=== PATIENT | male | born 1945 | race Caucasian/White ===

== ENCOUNTER → 2016-09-14 | Outpatient (CLI) | payer MEDICARE, BC ==
--- NOTE | 2016-09-15 08:12 | XR ---
Cervical spine with flexion and extension views HISTORY: Chronic stiffness in neck, back pain 8 views of the cervical spine correlated to the thoracic spine of same date Multilevel facet arthropathy changes present. There is carotid artery calcification present. At C4-5, C5-6, C3-4 there is foraminal encroachment due to uncovertebral joint hypertrophy and facet arthropa thy. Minimal anterolisthesis grade 1 C3-4, C4-5 on flexion views, neutral and extension views show no rmal alignment. Loss of disc height present at C5-6 with associated spondylosis. Prevertebral soft ti ssues are normal. Cervical vertebral bodies show preserved height. Bone mineralization is mildly redu doreen. IMPRESSION: Degenerative disc disease and facet arthropathy.
--- NOTE | 2016-09-15 08:24 | XR ---
Thoracic spine HISTORY: Back pain 3 views of the thoracic spine Thoracic vertebral bodies show preserved height and alignment. Bone mineralization is mildly reduced. There is multilevel spondylosis. Disc spaces relatively maintained. There is a spinal curvature. Pos sible cardiac enlargement noted. IMPRESSION: Degenerative disc disease. Spinal curvature. Additional findings above.
== END | disposition home or self-care (01) ==
LOC: RADXRMAIN 15:19
PROVIDERS: ATTEND Family Medicine
DX: M50.30 Other cervical disc degeneration, unspecified cervical region (principal); M46.82 Other specified inflammatory spondylopathies, cervical region; M51.34 Other intervertebral disc degeneration, thoracic region; M43.9 Deforming dorsopathy, unspecified
CPT/HCPCS: 72052; 72072

== ENCOUNTER 2016-11-19 21:16 | Emergency (ER) | payer MEDICARE, BC ==
[2016-11-19 21:31] VITALS: RESP 18
--- NOTE | 2016-11-19 22:03 | ED ---
Fever HPI <Eleazar Vargas - Last Filed: 11/19/16 23:59> - General Source: patient, RN notes reviewed Mode of arrival: ambulatory Limitations: no limitations <Chanell Florentino - Last Filed: 11/20/16 00:40> - General Chief Complaint: Fever Stated Complaint: fever (post OP 11/16) Time Seen by Provider: 11/19/16 21:43 - History of Present Illness Initial Comments: Patient is 71-year-old male presents to the emergency room for evaluation of fever. Patient states he had a steroid injection in his cervical spine on Wednesday. Patient states they told him if he began developing a fever to come to the emergency room. Patient states over the past few days he felt warm but did not think he had a fever. Patient states today he has been running high temperatures. Patient states he has been taking Tylenol every 6 hours. Patient states his last dose of Tylenol was at 7 PM this evening. Patient denies headache, dizziness, throat pain, ear pain, worsening neck pain, swelling or increased pain at the injection rite, chest pain, shortness of breath, cough, nausea, vomiting. Patient states been having generalized lower abdominal pain. Patient states he's had hernia repair surgeries in the past. Patient denies any other history of abdominal surgeries. Patient denies constipation or diarrhea. Patient denies pain or burning during urination, trouble urinating or blood in urine. Patient states he is not sure if his fever is related to the steroid injection he received on Wednesday. Patient denies any sick contacts. (Chanell Florentino) - Related Data Home Medications Medication Instructions Recorded Confirmed Acetaminophen Tab [Tylenol Tab] 650 mg PO Q6H PRN 11/19/16 11/19/16 Gabapentin [Neurontin] 300 mg PO BID 11/19/16 11/19/16 Multivitamins, Thera [Multivitamin 1 tab PO DAILY 11/19/16 11/19/16 (formulary)] Simvastatin [Zocor] 20 mg PO HS 11/19/16 11/19/16 amLODIPine BESYLATE/BENAZEPRIL 1 cap PO DAILY 11/19/16 11/19/16 [Lotrel 10-20 mg Capsule] sitaGLIPtin [Januvia] 100 mg PO DAILY 11/19/16 11/19/16 Previous Rx's Medication Instructions Recorded Levofloxacin [Levaquin] 500 mg PO DAILY 7 Days 11/19/16 Allergies Allergy/AdvReac Type Severity Reaction Status Date / Time No Known Allergies Allergy Verified 11/19/16 22:15 Review of Systems ROS Other: All systems not noted in ROS Statement are negative. <Eleazar Vargas - Last Filed: 11/19/16 23:59> ROS Other: All systems not noted in ROS Statement are negative. <Chanell Florentino - Last Filed: 11/20/16 00:40> ROS Statement: Those systems with pertinent positive or pertinent negative responses have been documented in the HPI. Past Medical History Past Medical History: Hypertension History of Any Multi-Drug Resistant Organisms: None Reported Past Surgical History: Hernia Repair Past Psychological History: No Psychological Hx Reported Smoking Status: Former smoker Past Alcohol Use History: None Reported Past Drug Use History: None Reported <Chanell Florentino - Last Filed: 11/20/16 00:40> General Exam <Eleazar Vargas - Last Filed: 11/19/16 23:59> Limitations: no limitations General appearance: alert, in no apparent distress Head exam: Present: atraumatic, normocephalic, normal inspection Eye exam: Present: normal appearance, PERRL, EOMI ENT exam: Present: normal exam, normal oropharynx, mucous membranes moist, TM's normal bilaterally, normal external ear exam Neck exam: Present: normal inspection, full ROM. Absent: tenderness, lymphadenopathy Respiratory exam: Present: normal lung sounds bilaterally. Absent: respiratory distress Cardiovascular Exam: Present: regular rate, normal rhythm, normal heart sounds GI/Abdominal exam: Present: soft, normal bowel sounds. Absent: distended, tenderness, guarding, rebound, rigid Extremities exam: Present: normal inspection Back exam: Present: normal inspection Neurological exam: Present: alert, oriented X3, CN II-XII intact, normal gait Psychiatric exam: Present: normal affect, normal mood Skin exam: Present: warm, dry, intact, normal color. Absent: rash <Chanell Florentino - Last Filed: 11/20/16 00:40> - General Exam Comments Initial Comments: Sitting in exam room, no acute distress. (Chanell Florentino) Course <Eleazar Vargas - Last Filed: 11/19/16 23:59> <Chanell Florentino - Last Filed: 11/20/16 00:40> Vital Signs 11/19/16 11/20/16 21:28 00:29 Temperature 101.5 F H 100.1 F H Pulse Rate 101 H 74 Respiratory 18 18 Rate Blood Pressure 143/76 152/73 O2 Sat by Pulse 94 L 94 L Oximetry - Reevaluation(s) Reevaluation #1: 11/19/16 23:59 I did personally do a [id number] evaluation the patient and did discuss the findings with him and his family. Patient does demonstrate left lower lobe pneumonia as the source of his fever. I did examine the neck is no evidence of any erythema drainage from the injection sites. I do agree with the assessment and plan. (Eleazar Vargas) Medical Decision Making - Lab Data Result diagrams: 11/19/16 22:30 11/19/16 22:30 <Eleazar Vargas - Last Filed: 11/19/16 23:59> - Lab Data Result diagrams: 11/19/16 22:30 11/19/16 22:30 - Radiology Data Radiology results: report reviewed, image reviewed <Chanell Florentino - Last Filed: 11/20/16 00:40> - Medical Decision Making Patient is a 71-year-old male presents to the emergency room for evaluation of fever. There is no swelling, erythema or pain at the injection site that he received from Dr. Silva on Wednesday. Chest x-ray noted for left lower lobe infiltrate. Labs show no concerning findings. Will treat patient for pneumonia. Patient is clinically stable. Patient still denies shortness of breath or cough. Advised patient to continue taking Tylenol for fever. Advised patient to follow-up with his primary care provider in 24-48 hours for reevaluation. Patient states he understands everything that was discussed with him. Return parameters discussed. Case discussed with Dr. Vargas who also evaluated patient. (Chanell Florentino) - Lab Data Lab Results 11/19/16 11/19/16 11/19/16 Range/Units 22:30 22:30 22:30 WBC 7.1 (3.8-10.6) k/uL RBC 5.37 (4.30-5.90) m/uL Hgb 15.9 (13.0-17.5) gm/dL Hct 46.1 (39.0-53.0) % MCV 85.7 (80.0-100.0) fL MCH 29.6 (25.0-35.0) pg MCHC 34.5 (31.0-37.0) g/dL RDW 13.2 (11.5-15.5) % Plt Count 139 L (150-450) k/uL Neutrophils % 84 % Lymphocytes % 7 % Monocytes % 4 % Eosinophils % 0 % Basophils % 1 % Neutrophils # 6.0 (1.3-7.7) k/uL Lymphocytes # 0.5 L (1.0-4.8) k/uL Monocytes # 0.3 (0-1.0) k/uL Eosinophils # 0.0 (0-0.7) k/uL Basophils # 0.0 (0-0.2) k/uL PT (9.0-12.0) sec INR (<1.1) APTT (22.0-30.0) sec Sodium 138 (137-145) mmol/L Potassium 4.2 (3.5-5.1) mmol/L Chloride 103 (98-107) mmol/L Carbon Dioxide 24 (22-30) mmol/L Anion Gap 11 mmol/L BUN 19 (9-20) mg/dL Creatinine 1.20 (0.66-1.25) mg/dL Est GFR (MDRD) Af Amer >60 (>60 ml/min/1.73 sqM) Est GFR (MDRD) Non-Af 59 (>60 ml/min/1.73 sqM) Glucose 130 H (74-99) mg/dL Plasma Lactic Acid Moi (0.7-2.0) mmol/L Calcium 9.6 (8.4-10.2) mg/dL Total Bilirubin 0.7 (0.2-1.3) mg/dL AST 59 (17-59) U/L ALT 40 (21-72) U/L Alkaline Phosphatase 104 (38-126) U/L Total Creatine Kinase 64 (55-170) U/L CK-MB (CK-2) 0.9 (0.0-2.4) ng/mL CK-MB (CK-2) Rel Index 1.4 Troponin I <0.012 (0.000-0.034) ng/mL Total Protein 7.3 (6.3-8.2) g/dL Albumin 4.1 (3.5-5.0) g/dL Influenza Type A RNA (Not Detectd) Influenza Type B (PCR) (Not Detectd) 11/19/16 11/19/16 11/19/16 Range/Units 22:30 22:30 22:30 WBC (3.8-10.6) k/uL RBC (4.30-5.90) m/uL Hgb (13.0-17.5) gm/dL Hct (39.0-53.0) % MCV (80.0-100.0) fL MCH (25.0-35.0) pg MCHC (31.0-37.0) g/dL RDW (11.5-15.5) % Plt Count (150-450) k/uL Neutrophils % % Lymphocytes % % Monocytes % % Eosinophils % % Basophils % % Neutrophils # (1.3-7.7) k/uL Lymphocytes # (1.0-4.8) k/uL Monocytes # (0-1.0) k/uL Eosinophils # (0-0.7) k/uL Basophils # (0-0.2) k/uL PT 11.7 (9.0-12.0) sec INR 1.2 (<1.1) APTT 25.2 (22.0-30.0) sec Sodium (137-145) mmol/L Potassium (3.5-5.1) mmol/L Chloride (98-107) mmol/L Carbon Dioxide (22-30) mmol/L Anion Gap mmol/L BUN (9-20) mg/dL Creatinine (0.66-1.25) mg/dL Est GFR (MDRD) Af Amer (>60 ml/min/1.73 sqM) Est GFR (MDRD) Non-Af (>60 ml/min/1.73 sqM) Glucose (74-99) mg/dL Plasma Lactic Acid Moi 1.1 (0.7-2.0) mmol/L Calcium (8.4-10.2) mg/dL Total Bilirubin (0.2-1.3) mg/dL AST (17-59) U/L ALT (21-72) U/L Alkaline Phosphatase (38-126) U/L Total Creatine Kinase (55-170) U/L CK-MB (CK-2) (0.0-2.4) ng/mL CK-MB (CK-2) Rel Index Troponin I (0.000-0.034) ng/mL Total Protein (6.3-8.2) g/dL Albumin (3.5-5.0) g/dL Influenza Type A RNA Not Detected (Not Detectd) Influenza Type B (PCR) Not Detected (Not Detectd) 11/20/16 00:29 Ventricular rate 92 bpm, SC interval 192 ms, QRS duration 118 ms, QT/QTc 352/ 435 ms (Chanell Florentino) Disposition <Eleazar Vargas - Last Filed: 11/19/16 23:59> Time of Disposition: 23:50 <Chanell Florentino - Last Filed: 11/20/16 00:40> Clinical Impression: Community acquired pneumonia Disposition: HOME SELF-CARE Condition: Good Instructions: Community Acquired Pneumonia (ED) Additional Instructions: Take antibiotics as directed. Take Tylenol as needed for fever. Please follow up with primary care provider in 1-2 days for reevaluation. If any new symptom arises or symptoms worsen, return to ER as soon as possible. Prescriptions: Levofloxacin [Levaquin] 500 mg PO DAILY 7 Days Referrals: Anton Perez DO [Primary Care Provider] - 1-2 days
[2016-11-19] MEDS: SODIUM CHLORIDE 0.9% 500 ML IV SCH (22:37)
--- NOTE | 2016-11-19 22:56 | XR ---
EXAMINATION TYPE: XR chest 2V DATE OF EXAM: 11/19/2016 10:48 PM COMPARISON: NONE HISTORY: Fever TECHNIQUE: Frontal and lateral views of the chest are obtained. FINDINGS: There is possible infiltrate in the left lower lobe behind the heart. Left diaphragm is so mewhat obscured. There is no pleural effusion. Thoracic aorta is atheromatous. Exam is limited by the arms over the heart on the lateral view. Bony thorax appears intact. IMPRESSION: Possible left lower lobe pulmonary infiltrate..
[2016-11-19 23:20] LABS: Basophils % (A) 1 %; CH 29.5; CHCM 34.5; Eosinophils % (A) 0 %; HCT 46.1 % (39.0-53.0); HDW 2.62; HGB 15.9 gm/dL (13.0-17.5); Luc # (Auto) 0.28; Luc % (Auto) 4; Lymphocytes # (A) 0.5 k/uL (1.0-4.8); Lymphocytes % (A) 7 %; MCH 29.6 pg (25.0-35.0); MCHC 34.5 g/dL (31.0-37.0); MCV 85.7 fL (80.0-100.0); Mean Platelet Volume 6.9; Monocytes # (A) 0.3 k/uL (0-1.0); Monocytes % (A) 4 %; Neutrophils % (A) 84 %; RBC 5.37 m/uL (4.30-5.90); RDW 13.2 % (11.5-15.5); WBC 7.1 k/uL (3.8-10.6); WBC (Perox) 7.19
[2016-11-19 23:31] LABS: ALT 40 U/L (21-72); AST 59 U/L (17-59); Alkaline Phosphatase 104 U/L (38-126); Anion Gap 11 mmol/L; Blood Urea Nitrogen 19 mg/dL (9-20); Calcium 9.6 mg/dL (8.4-10.2); Carbon Dioxide 24 mmol/L (22-30); Chloride 103 mmol/L (98-107); Glucose 130 mg/dL (74-99); Non-African American GFR(MDRD) 59 (>60 ml/min/1.73 sqM); Potassium 4.2 mmol/L (3.5-5.1); Sodium 138 mmol/L (137-145); Total Bilirubin 0.7 mg/dL (0.2-1.3); Total Protein 7.3 g/dL (6.3-8.2)
[2016-11-19 23:34] LABS: INR 1.2 (<1.1); Partial Thromboplastin Time 25.2 sec (22.0-30.0); Prothrombin Time 11.7 sec (9.0-12.0)
[2016-11-19 23:41] LABS: Creatine Kinase 64 U/L (55-170)
[2016-11-19] MEDS ORDERED: LEVOFLOXACIN 500 MG TAB PO STA (23:50)
[2016-11-19 23:54] LABS: Creatine Kinase MB 0.9 ng/mL (0.0-2.4); Troponin I <0.012 ng/mL (0.000-0.034)
[2016-11-20 00:30] VITALS: BP 152/73; PULSE 74; TEMP 100.1
== END 2016-11-20 00:30 | disposition home or self-care (01) ==
LOC: EC 21:16
DX: J18.9 Pneumonia, unspecified organism (principal); I10 Essential (primary) hypertension; Z87.891 Personal history of nicotine dependence; Z79.899 Other long term (current) drug therapy
CPT/HCPCS: 36415; 71020; 80053; 82550; 82553; 83605; 84484; 85025; 85610; 85730; 87040; 87502; 93005; 96360; 99284

== ENCOUNTER 2016-11-24 21:35 | Inpatient (IN) | payer MEDICARE, BC ==
[2016-11-24] MEDS ORDERED: SODIUM CHLORIDE 0.9% 1,000 ML IV STA (23:15)
--- NOTE | 2016-11-24 23:21 | ED ---
Recheck HPI - General Chief Complaint: Recheck/Abnormal Lab/Rx Stated Complaint: Fever Time Seen by Provider: 11/24/16 22:49 Source: patient, RN notes reviewed Mode of arrival: ambulatory Limitations: no limitations - History of Present Illness Initial Comments: The patient is 71-year-old male presents to the emergency room for evaluation. Patient was here a few days ago for evaluation of fever. Patient was sent home with antibiotics for pneumonia. Patient's family states that patient still been very tired throughout the past few days and still having on and off fevers. Patient states he went saw his primary care provider yesterday and received blood work. Patient states he received a phone call this evening around 8 PM saying that he needs to come to the emergency room for abnormal labs and further workup. Patient denies any pain. Patient states he is having a slight headache. Patient denies shortness of breath. Patient denies dizziness. Patient denies throat pain or ear pain. Patient denies chest pain. Patient denies abdominal pain. Patient states he has history of 2 hernia surgeries. Patient states his last bowel movement was yesterday. Patient denies any pain or burning during urination, trouble urinating or blood in urine. - Related Data Home Medications Medication Instructions Recorded Confirmed Acetaminophen Tab [Tylenol Tab] 650 mg PO Q6H PRN 11/19/16 11/24/16 Multivitamins, Thera [Multivitamin 1 tab PO DAILY 11/19/16 11/24/16 (formulary)] Simvastatin [Zocor] 20 mg PO HS 11/19/16 11/24/16 amLODIPine BESYLATE/BENAZEPRIL 1 cap PO DAILY 11/19/16 11/24/16 [Lotrel 10-20 mg Capsule] sitaGLIPtin [Januvia] 100 mg PO DAILY 11/19/16 11/24/16 Amoxicillin 875 mg PO BID 11/24/16 11/24/16 Tadalafil [Cialis] 5 mg PO DAILY 11/24/16 11/24/16 Previous Rx's Medication Instructions Recorded Levofloxacin [Levaquin] 500 mg PO DAILY 7 Days 11/19/16 Allergies Allergy/AdvReac Type Severity Reaction Status Date / Time No Known Allergies Allergy Verified 11/24/16 23:00 Review of Systems ROS Statement: Those systems with pertinent positive or pertinent negative responses have been documented in the HPI. ROS Other: All systems not noted in ROS Statement are negative. Past Medical History Past Medical History: Hypertension History of Any Multi-Drug Resistant Organisms: None Reported Past Surgical History: Hernia Repair Past Psychological History: No Psychological Hx Reported Smoking Status: Former smoker Past Alcohol Use History: None Reported Past Drug Use History: None Reported General Exam - General Exam Comments Initial Comments: Sitting in exam room, no acute distress. Limitations: no limitations General appearance: alert, in no apparent distress Head exam: Present: atraumatic, normocephalic, normal inspection Eye exam: Present: normal appearance ENT exam: Present: normal exam Neck exam: Present: normal inspection Respiratory exam: Present: normal lung sounds bilaterally. Absent: respiratory distress Cardiovascular Exam: Present: regular rate, normal rhythm, normal heart sounds GI/Abdominal exam: Present: soft, normal bowel sounds. Absent: distended, tenderness, guarding, rebound, rigid Extremities exam: Present: normal inspection Back exam: Present: normal inspection Neurological exam: Present: alert, oriented X3, CN II-XII intact, normal gait Psychiatric exam: Present: normal affect, normal mood Skin exam: Present: warm, dry, intact, normal color. Absent: rash Course Vital Signs 11/24/16 11/25/16 11/25/16 22:02 00:26 02:34 Temperature 98.8 F 99.7 F H 99.8 F H Pulse Rate 75 88 90 Respiratory 18 18 18 Rate Blood Pressure 137/62 144/73 142/63 O2 Sat by Pulse 94 L 96 92 L Oximetry Medical Decision Making - Medical Decision Making Patient is 71-year-old male presents emergency room for evaluation of abnormal labs. Patient was sent here by his primary care provider. Patient's total bilirubin, AST/ALT and alk phos elevated from last visit. Ultrasound of gallbladder: Probable cholelithiasis. Gallbladder wall thickening and pericholecystic fluid. It appears patient has choledocholithiasis with acute cystitis. Case discussed with Dr. Tanner. Dr. Tanner discussed case with Dr. Vasquez who agreed to admit patient. Patient will be consulted with GI. Patient will be started on appropriate antibiotics. Plan discussed with patient. - Lab Data Result diagrams: 11/24/16 23:34 11/24/16 23:34 Lab Results 11/24/16 11/24/16 11/24/16 Range/Units 23:34 23:34 23:34 WBC 7.9 (3.8-10.6) k/uL RBC 4.91 (4.30-5.90) m/uL Hgb 14.3 (13.0-17.5) gm/dL Hct 41.9 (39.0-53.0) % MCV 85.4 (80.0-100.0) fL MCH 29.2 (25.0-35.0) pg MCHC 34.3 (31.0-37.0) g/dL RDW 13.8 (11.5-15.5) % Plt Count 120 L (150-450) k/uL Neutrophils % (Manual) 76.0 % Band Neutrophils % 4.0 % Lymphocytes % (Manual) 14.0 % Monocytes % (Manual) 6.0 % Neutrophils # (Manual) 6.3 (1.3-7.7) k/uL Lymphocytes # (Manual) 1.1 (1.0-4.8) k/uL Monocytes # (Manual) 0.5 (0-1.0) k/uL Nucleated RBCs 0 (0-0) /100 WBC Manual Slide Review Performed Reactive Lymphocytes Present RBC Morphology Normal PT (9.0-12.0) sec INR (<1.1) APTT (22.0-30.0) sec Sodium 135 L (137-145) mmol/L Potassium 4.3 (3.5-5.1) mmol/L Chloride 100 (98-107) mmol/L Carbon Dioxide 27 (22-30) mmol/L Anion Gap 8 mmol/L BUN 16 (9-20) mg/dL Creatinine 1.20 (0.66-1.25) mg/dL Est GFR (MDRD) Af Amer >60 (>60 ml/min/1.73 sqM) Est GFR (MDRD) Non-Af 59 (>60 ml/min/1.73 sqM) Glucose 108 H (74-99) mg/dL Calcium 8.7 (8.4-10.2) mg/dL Magnesium 2.1 (1.6-2.3) mg/dL Total Bilirubin 4.8 H (0.2-1.3) mg/dL AST 102 H (17-59) U/L ALT 77 H (21-72) U/L Alkaline Phosphatase 358 H (38-126) U/L Total Creatine Kinase 91 (55-170) U/L CK-MB (CK-2) 2.5 H* (0.0-2.4) ng/mL CK-MB (CK-2) Rel Index 2.7 Troponin I <0.012 (0.000-0.034) ng/mL Total Protein 6.8 (6.3-8.2) g/dL Albumin 3.3 L (3.5-5.0) g/dL Amylase 45 (30-110) U/L Lipase 269 (23-300) U/L Urine Color Urine Appearance (Clear) Urine pH (5.0-8.0) Ur Specific [place] (1.001-1.035) Urine Protein (Negative) Urine Glucose (UA) (Negative) Urine Ketones (Negative) Urine Blood (Negative) Urine Nitrite (Negative) Urine Bilirubin (Negative) Urine Urobilinogen (<2.0) mg/dL Ur Leukocyte Esterase (Negative) Urine RBC (0-5) /hpf Urine WBC (0-5) /hpf Hyaline Casts (0-2) /lpf Urine Mucus (None) /hpf 11/24/16 11/24/16 Range/Units 23:34 23:34 WBC (3.8-10.6) k/uL RBC (4.30-5.90) m/uL Hgb (13.0-17.5) gm/dL Hct (39.0-53.0) % MCV (80.0-100.0) fL MCH (25.0-35.0) pg MCHC (31.0-37.0) g/dL RDW (11.5-15.5) % Plt Count (150-450) k/uL Neutrophils % (Manual) % Band Neutrophils % % Lymphocytes % (Manual) % Monocytes % (Manual) % Neutrophils # (Manual) (1.3-7.7) k/uL Lymphocytes # (Manual) (1.0-4.8) k/uL Monocytes # (Manual) (0-1.0) k/uL Nucleated RBCs (0-0) /100 WBC Manual Slide Review Reactive Lymphocytes RBC Morphology PT 12.0 (9.0-12.0) sec INR 1.2 (<1.1) APTT 28.4 (22.0-30.0) sec Sodium (137-145) mmol/L Potassium (3.5-5.1) mmol/L Chloride (98-107) mmol/L Carbon Dioxide (22-30) mmol/L Anion Gap mmol/L BUN (9-20) mg/dL Creatinine (0.66-1.25) mg/dL Est GFR (MDRD) Af Amer (>60 ml/min/1.73 sqM) Est GFR (MDRD) Non-Af (>60 ml/min/1.73 sqM) Glucose (74-99) mg/dL Calcium (8.4-10.2) mg/dL Magnesium (1.6-2.3) mg/dL Total Bilirubin (0.2-1.3) mg/dL AST (17-59) U/L ALT (21-72) U/L Alkaline Phosphatase (38-126) U/L Total Creatine Kinase (55-170) U/L CK-MB (CK-2) (0.0-2.4) ng/mL CK-MB (CK-2) Rel Index Troponin I (0.000-0.034) ng/mL Total Protein (6.3-8.2) g/dL Albumin (3.5-5.0) g/dL Amylase (30-110) U/L Lipase (23-300) U/L Urine Color Dark Yellow Urine Appearance Clear (Clear) Urine pH 5.5 (5.0-8.0) Ur Specific [place] 1.014 (1.001-1.035) Urine Protein 1+ H (Negative) Urine Glucose (UA) Negative (Negative) Urine Ketones Negative (Negative) Urine Blood Small H (Negative) Urine Nitrite Negative (Negative) Urine Bilirubin 1+ H (Negative) Urine Urobilinogen 12.0 (<2.0) mg/dL Ur Leukocyte Esterase Negative (Negative) Urine RBC 1 (0-5) /hpf Urine WBC 1 (0-5) /hpf Hyaline Casts 1 (0-2) /lpf Urine Mucus Rare H (None) /hpf - Radiology Data Radiology results: report reviewed, image reviewed Disposition Clinical Impression: Choledocholithiasis with acute cholecystitis Disposition: ADMITTED IP TO THIS [facility] Condition: Stable Decision Date: 11/25/16
[2016-11-25 00:03] LABS: Appearance,Urine Clear (Clear); Bilirubin,Urine 1+ (Negative); Glucose,Urine (UA) Negative (Negative); Ketones,Urine Negative (Negative); Leukocyte Esterase,Urine Negative (Negative); Mucus,Urine Rare /hpf; Nitrite,Urine Negative (Negative); PH, Urine 5.5 (5.0-8.0); Particle Count 2429; Protein,Urine 1+ (Negative); RBC,Urine 1 /hpf (0-5); Specific Gravity,Urine 1.014 (1.001-1.035); UA Billing (MACRO vs. MICRO) MICRO; WBC,Urine 1 /hpf (0-5)
[2016-11-25 00:10] LABS: INR 1.2 (<1.1); Partial Thromboplastin Time 28.4 sec (22.0-30.0)
[2016-11-25 00:12] LABS: ALT 77 U/L (21-72); AST 102 U/L (17-59); Alkaline Phosphatase 358 U/L (38-126); Amylase 45 U/L (30-110); Anion Gap 8 mmol/L; Blood Urea Nitrogen 16 mg/dL (9-20); Calcium 8.7 mg/dL (8.4-10.2); Carbon Dioxide 27 mmol/L (22-30); Chloride 100 mmol/L (98-107); Glucose 108 mg/dL (74-99); Magnesium 2.1 mg/dL (1.6-2.3); Non-African American GFR(MDRD) 59 (>60 ml/min/1.73 sqM); Potassium 4.3 mmol/L (3.5-5.1); Sodium 135 mmol/L (137-145); Total Bilirubin 4.8 mg/dL (0.2-1.3); Total Protein 6.8 g/dL (6.3-8.2)
[2016-11-25 00:19] LABS: Aty Lym Flag Marked; CHCM 34.2; HCT 41.9 % (39.0-53.0); HGB 14.3 gm/dL (13.0-17.5); MCH 29.2 pg (25.0-35.0); MCHC 34.3 g/dL (31.0-37.0); MCV 85.4 fL (80.0-100.0); Mean Platelet Volume 7.9; RBC 4.91 m/uL (4.30-5.90); RDW 13.8 % (11.5-15.5); WBC 7.9 k/uL (3.8-10.6); WBC (Perox) 7.61
[2016-11-25 00:25] LABS: Creatine Kinase 91 U/L (55-170)
--- NOTE | 2016-11-25 00:36 | XR ---
EXAM: XR Chest, 2 Views. CLINICAL HISTORY: Reason: Chest Pain TECHNIQUE: Frontal and lateral views of the chest. COMPARISON: 11/19/16. FINDINGS: Once again, there is subsegmental atelectasis to the left lower lobe. Mild cardiomegaly. Suspect mild vascular congestion, similar in appearance to the prior study. No pneumothorax. Calcified aorta. IMPRESSION: Cardiomegaly with suspected mild vascular congestion. Stable left base atelectasis.
[2016-11-25 00:37] LABS: Troponin I <0.012 ng/mL (0.000-0.034)
[2016-11-25 00:43] LABS: Creatine Kinase MB 2.5 ng/mL (0.0-2.4)
[2016-11-25 01:08] LABS: Add Differential Manual Differential
[2016-11-25 01:10] LABS: Nucleated Red Blood Cells 0 /100 WBC (0-0); Total Cells Counted 100
[2016-11-25 01:11] LABS: Manual Review Performed; RBC Morphology Normal; Reactive Lymphocytes Present
--- NOTE | 2016-11-25 01:55 | US ---
EXAM: US Abdomen Limited, Right Upper Quadrant. CLINICAL HISTORY: Reason: Pain TECHNIQUE: Real-time ultrasound of the right upper quadrant with image documentation. COMPARISON: No relevant prior studies available. FINDINGS: Liver: Unremarkable. No mass. No intrahepatic bile duct dilation. Gallbladder: The gallbladder demonstrates layering echogenic foci. I suspect that there is some shadowing, consistent with stones. The gallbladder wall is thickened up to 5 mm. Trace pericholecystic edema. Photo Studio Assistant reports that there is no Hickman sign. If further evaluation is required, would recommend HIDA scan. Common bile duct: Unremarkable as visualized. No stones. No dilation. Pancreas: Unremarkable as visualized. Right kidney: Unremarkable. No stones. No solid mass. No hydronephrosis. IMPRESSION: Probable cholelithiasis. Gallbladder wall thickening and pericholecystic fluid. No Hickman sign. If further imaging is required, would recommend HIDA scan.
[2016-11-25] MEDS ORDERED: NALOXONE 0.4 MG/ML 1 ML VIAL IV PRN ×2 (02:05→16:21)
[2016-11-25] MEDS ORDERED: HYDROmorphone 1 MG/ML 1 ML SYRINGE IV PRN (02:05)
[2016-11-25] MEDS ORDERED: ONDANSETRON 4 MG/2 ML VIAL IVP PRN (02:05)
[2016-11-25] MEDS ORDERED: PIPERACILLIN-TAZOBACTAM 3.375 GM in DEXTROSE/WATER 1 50ML.BAG IVPB STA (02:07)
[2016-11-25] MEDS: SODIUM CHLORIDE 0.9% 1,000 ML IV SCH ×3 (02:33→22:35)
[2016-11-25] MEDS: ACETAMINOPHEN IV (For NPO) 1,000 MG in EMPTY BAG 1 BAG IVPB SCH ×3 (07:46→20:08)
[2016-11-25 08:28] LABS: ALT 69 U/L (21-72); AST 88 U/L (17-59); Alkaline Phosphatase 347 U/L (38-126); Anion Gap 10 mmol/L; Blood Urea Nitrogen 15 mg/dL (9-20); Calcium 8.1 mg/dL (8.4-10.2); Carbon Dioxide 22 mmol/L (22-30); Chloride 102 mmol/L (98-107); Glucose 107 mg/dL (74-99); Non-African American GFR(MDRD) >60 (>60 ml/min/1.73 sqM); Potassium 4.2 mmol/L (3.5-5.1); Sodium 134 mmol/L (137-145); Total Bilirubin 4.8 mg/dL (0.2-1.3); Total Protein 6.6 g/dL (6.3-8.2)
[2016-11-25 08:41] LABS: Aty Lym Flag Marked; CH 29.2; CHCM 34.2; HCT 40.3 % (39.0-53.0); HDW 2.77; HGB 13.9 gm/dL (13.0-17.5); MCH 29.6 pg (25.0-35.0); MCHC 34.6 g/dL (31.0-37.0); MCV 85.8 fL (80.0-100.0); Mean Platelet Volume 7.5; RDW 13.7 % (11.5-15.5); WBC 8.5 k/uL (3.8-10.6); WBC (Perox) 8.43
[2016-11-25] MEDS: PIPERACILLIN-TAZOBACTAM 3.375 GM in DEXTROSE/WATER 1 50ML.BAG IVPB SCH ×3 (09:34→23:24)
[2016-11-25 09:36] LABS: Add Differential Manual Differential
[2016-11-25 09:39] LABS: Manual Review Performed; Nucleated Red Blood Cells 0 /100 WBC (0-0); RBC Morphology Normal; Total Cells Counted 100
[2016-11-25] MEDS: PANTOPRAZOLE 40 MG/10 ML VIAL IVP SCH (09:41)
--- NOTE | 2016-11-25 10:57 | P.GSHP ---
History of Present Illness H&P Date: 11/25/16 Chief Complaint: Right upper quadrant pain This is a 71-year-old male who presented to the emergency room yesterday. Patient had complaints of malaise and not feeling well. He states he has some right upper quadrant pain yesterday. Patient states he was in the emergency room several days ago and apparently was treated for an infection. The patient had repeat blood work performed which showed elevated liver function tests. The patient's ultrasound shows thickened gallbladder wall with pericholecystic fluid and cholelithiasis. - Constitutional Constitutional: Reports as per HPI Past Medical History Past Medical History: Hypertension History of Any Multi-Drug Resistant Organisms: None Reported Past Surgical History: Hernia Repair Past Anesthesia/Blood Transfusion Reactions: No Reported Reaction Past Psychological History: No Psychological Hx Reported Smoking Status: Former smoker Past Alcohol Use History: None Reported Past Drug Use History: None Reported Medications and Allergies Home Medications Medication Instructions Recorded Confirmed Type Acetaminophen Tab [Tylenol Tab] 650 mg PO Q6H PRN 11/19/16 11/24/16 History Multivitamins, Thera [Multivitamin 1 tab PO DAILY 11/19/16 11/24/16 History (formulary)] Simvastatin [Zocor] 20 mg PO HS 11/19/16 11/24/16 History amLODIPine BESYLATE/BENAZEPRIL 1 cap PO DAILY 11/19/16 11/24/16 History [Lotrel 10-20 mg Capsule] sitaGLIPtin [Januvia] 100 mg PO DAILY 11/19/16 11/24/16 History Amoxicillin 875 mg PO BID 11/24/16 11/24/16 History Tadalafil [Cialis] 5 mg PO DAILY 11/24/16 11/24/16 History Allergies Allergy/AdvReac Type Severity Reaction Status Date / Time No Known Allergies Allergy Verified 11/24/16 23:00 Surgical - Exam Vital Signs Temp Pulse Resp BP Pulse Ox 98.8 F 75 18 137/62 94 L 11/24/16 22:02 11/24/16 22:02 11/24/16 22:02 11/24/16 22:02 11/24/16 22:02 - General well developed, no distress - Eyes PERRL - ENT normal pinna - Neck no masses - Respiratory normal expansion - Abdomen Abdomen soft. There is some mild tenderness or quadrant. There is no rebound or guarding. Results - Labs 11/25/16 08:04 11/25/16 08:04 Abnormal Lab Results - Last 24 Hours (Table) 11/25/16 11/25/16 Range/Units 08:04 08:04 Plt Count 118 L (150-450) k/uL Monocytes # (Manual) 1.4 H (0-1.0) k/uL Sodium 134 L (137-145) mmol/L Glucose 107 H (74-99) mg/dL Calcium 8.1 L (8.4-10.2) mg/dL Total Bilirubin 4.8 H (0.2-1.3) mg/dL AST 88 H (17-59) U/L Alkaline Phosphatase 347 H (38-126) U/L Albumin 3.0 L (3.5-5.0) g/dL Diabetes panel 11/25/16 Range/Units 08:04 Sodium 134 L (137-145) mmol/L Potassium 4.2 (3.5-5.1) mmol/L Chloride 102 (98-107) mmol/L Carbon Dioxide 22 (22-30) mmol/L BUN 15 (9-20) mg/dL Creatinine 1.12 (0.66-1.25) mg/dL Glucose 107 H (74-99) mg/dL Calcium 8.1 L (8.4-10.2) mg/dL AST 88 H (17-59) U/L ALT 69 (21-72) U/L Alkaline Phosphatase 347 H (38-126) U/L Total Protein 6.6 (6.3-8.2) g/dL Albumin 3.0 L (3.5-5.0) g/dL Calcium panel 11/25/16 Range/Units 08:04 Calcium 8.1 L (8.4-10.2) mg/dL Albumin 3.0 L (3.5-5.0) g/dL Pituitary panel 11/25/16 Range/Units 08:04 Sodium 134 L (137-145) mmol/L Potassium 4.2 (3.5-5.1) mmol/L Chloride 102 (98-107) mmol/L Carbon Dioxide 22 (22-30) mmol/L BUN 15 (9-20) mg/dL Creatinine 1.12 (0.66-1.25) mg/dL Glucose 107 H (74-99) mg/dL Calcium 8.1 L (8.4-10.2) mg/dL Adrenal panel 11/25/16 Range/Units 08:04 Sodium 134 L (137-145) mmol/L Potassium 4.2 (3.5-5.1) mmol/L Chloride 102 (98-107) mmol/L Carbon Dioxide 22 (22-30) mmol/L BUN 15 (9-20) mg/dL Creatinine 1.12 (0.66-1.25) mg/dL Glucose 107 H (74-99) mg/dL Calcium 8.1 L (8.4-10.2) mg/dL Total Bilirubin 4.8 H (0.2-1.3) mg/dL AST 88 H (17-59) U/L ALT 69 (21-72) U/L Alkaline Phosphatase 347 H (38-126) U/L Total Protein 6.6 (6.3-8.2) g/dL Albumin 3.0 L (3.5-5.0) g/dL - Imaging US - abdomen: report reviewed (Cholelithiasis, pericholecystic fluid, thickened gallbladder wall) Assessment and Plan Plan: Cholecystitis and cholelithiasis. Patient will undergo laparoscopic cholecystectomy today. I discussed the patient that is possible he has a small stone in his biliary system. His liver enzymes have decreased from yesterday. If he has persistent elevated LFTs postoperatively he will undergo ERCP.
--- NOTE | 2016-11-25 11:51 | P.CONS ---
History of Present Illness - Reason for Consult Consult date: 11/25/16 jaundice elevated liver enzymes Requesting physician: Zion Vasquez - History of Present Illness 71-year-old gentleman patient of Dr. Anton Perez the past medical history of bal-[id number] diabetes mellitus for 10 years, and hypertension. Patient has been experiencing fevers over the last week as high as 103 without cough, sputum production, dysuria, hematuria or abdominal pain. Consultation requested for elevated liver enzymes and jaundice. He was evaluated in the emergency room on 11/19/2016 for fever T-max 101.5. Chest x-ray reported cardiomegaly with suspected mild vascular congestion. Patient was told he may have pneumonia and was prescribed Levaquin as well as a penicillin-based antibiotic. At that time his liver enzymes were normal. Denies abdominal pain maybe some "slight discomfort" across the midabdomen, but not describe it as painful. No history of hepatitis intravenous drug abuse alcoholism. He returns to the emergency room yesterday with fever T-max 100.4. Urine slightly more dark but denies acholic stools. White count 8.5. Hemoglobin 13.9. Platelet 118. Yesterday total bilirubin 4.8 and unchanged today. AST 88-102. ALT 69-77. Alkaline phosphates 347-358. Lipase 269. INR 1.2. Ultrasound abdomen reported liver is unremarkable without mass or intrahepatic biliary dilatation. CBD was not measured. Gallbladder demonstrated layering echogenic foci with wall thickening, 5 mm and pericholecystic fluid. Patient is scheduled for laparoscopic cholecystectomy today. Presently, he denies abdominal pain. Resting comfortably. Review of Systems Constitutional: Denies fever, chills, sweats, weight gain, or loss. HEENT: Negative for migraines, blurred vision or loss, earaches, drainage, tinnitus, oral mucosal lesions, dysphagia, or odynophagia. Cardiac: Hypertension. Negative for chest pain, arrhythmias, or palpitation. Respiratory: Negative for shortness of breath, hemoptysis, cough, or sputum production. Gastrointestinal: See HPI for pertinent findings. Genitourinary: Negative for hematuria, urgency, frequency, polyuria, dysuria, or penile discharge. Musculoskeletal: Negative for muscle aches, swelling, arthritis, and arthralgias. Neurologic: Diabetes mellitus. Negative for stroke or TIA. Endocrine: Negative for thyroid problems. Skin: Negative for rash or itching. Psychiatric: Negative history for depression and anxiety All systems: negative (See HPI) Past Medical History Past Medical History: Hypertension History of Any Multi-Drug Resistant Organisms: None Reported Past Surgical History: Hernia Repair Past Anesthesia/Blood Transfusion Reactions: No Reported Reaction Past Psychological History: No Psychological Hx Reported Smoking Status: Former smoker Past Alcohol Use History: None Reported Past Drug Use History: None Reported Medications and Allergies Home Medications Medication Instructions Recorded Confirmed Type Acetaminophen Tab [Tylenol Tab] 650 mg PO Q6H PRN 11/19/16 11/24/16 History Simvastatin [Zocor] 20 mg PO HS 11/19/16 11/24/16 History amLODIPine BESYLATE/BENAZEPRIL 1 cap PO DAILY 11/19/16 11/24/16 History [Lotrel 10-20 mg Capsule] sitaGLIPtin [Januvia] 100 mg PO DAILY 11/19/16 11/24/16 History Tadalafil [Cialis] 5 mg PO DAILY 11/24/16 11/24/16 History Allergies Allergy/AdvReac Type Severity Reaction Status Date / Time No Known Allergies Allergy Verified 11/25/16 14:32 Physical Exam Vitals: Vital Signs Temp Pulse Pulse Resp BP BP Pulse Ox 11/25/16 07:00 100.4 F H 93 17 132/65 94 L 11/25/16 02:50 98.4 F 96 16 143/65 93 L 11/25/16 02:34 99.8 F H 90 18 142/63 92 L Intake and Output 11/24/16 11/25/16 11/25/16 22:59 06:59 14:59 Other: Voiding Method Toilet # Voids 1 NGeneral appearance: The patient is alert, oriented, in no acute distress. Jaundice. HET: Head is normocephalic and atraumatic. Pupils are equal and reactive. Sclerae icterus. Oropharynx is clear without lesions. Neck: Supple without lymphadenopathy. Trachea midline. Heart: S1 S2. Regular rate and rhythm. Lungs: No crackles or wheezes are heard. Abdomen: Soft, nontender, nondistended with bowel sounds. No peritoneal signs. No palpable organomegaly or masses. Extremities: Normal skin color and turgor. No cyanosis, rash, ulceration, clubbing, or edema. Radial and pedal pulses are 2/4 bilaterally. Neurological: No focal deficits. Strength and sensation are grossly intact.m Results CBC & Chem 7: 11/26/16 07:00 11/26/16 06:57 Labs: Abnormal Lab Results - Last 24 Hours (Table) 11/25/16 11/25/16 Range/Units 08:04 08:04 Plt Count 118 L (150-450) k/uL Monocytes # (Manual) 1.4 H (0-1.0) k/uL Sodium 134 L (137-145) mmol/L Glucose 107 H (74-99) mg/dL Calcium 8.1 L (8.4-10.2) mg/dL Total Bilirubin 4.8 H (0.2-1.3) mg/dL AST 88 H (17-59) U/L Alkaline Phosphatase 347 H (38-126) U/L Albumin 3.0 L (3.5-5.0) g/dL US - abdomen: report reviewed (Review by Dr. Reese) Assessment and Plan (1) Elevated liver enzymes Narrative/Plan: Acute hepatitis secondary to possible choledocholithiasis, possible passage of choledocholithiasis possible ascending cholangitis. General surgery evaluating for acute cholecystitis. Other differentials to consider is toxic hepatitis from recent prescribed antibiotics possible viral. The absence of abdominal pain is atypical for biliary presentation but still possible. Blood cultures 6 days ago reporting no growth. Patient is scheduled for laparoscopic cholecystectomy today. Status: Acute (2) Jaundice Status: Acute (3) Cholelithiasis Status: Acute (4) Fever Status: Acute Plan: 1. MRCP recommended. However, surgeon Dr. 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 Laparoscopic cholecystectomy today. Therefore, MRCP cannot be completed postoperatively. 2. Hepatitis panel with fractionated bilirubin. 3. Continue supportive measures. Advise infectious disease consultation repeat blood cultures, urinalysis/culture and viral hepatitis workup especially if fevers and liver enzymes do not improve postoperatively. Thank you for this kind referral and the opportunity to participate in the care of your patient. This consultation was discussed with Dr. Reese. The impression and plan of care have been directed as dictated.
[2016-11-25] MEDS ORDERED: IV FLUID CONTINUATION 1,000 ML IV ONE (14:29)
[2016-11-25] MEDS ORDERED: HEPARIN SODIUM,PORCINE 5,000 UNIT/ML 1 ML VIAL SQ ONE (14:39)
[2016-11-25 14:49] LABS: Glucose,Whole Blood 98 mg/dL (75-99)
[2016-11-25] MEDS ORDERED: ONDANSETRON 4 MG/2 ML VIAL IVP ONE (14:53)
[2016-11-25] MEDS ORDERED: DEXAMETHASONE SOD PHOS (MDV) 100 MG/10 ML VIAL IV ONE (14:53)
[2016-11-25 15:08] LABS: Bilirubin, Delta 1.9 mg/dL (0.0-0.2); Total Bilirubin 4.9 mg/dL (0.2-1.3)
[2016-11-25] MEDS ORDERED: fentaNYL (PF) 50 MCG/ML 2 ML AMP ONE (15:31)
[2016-11-25] MEDS ORDERED: LIDOCAINE 1% INJ 10MG/ML (20 ML MDV) ONE (15:31)
[2016-11-25] MEDS ORDERED: NEOSTIGMINE 1 MG/ML 10 ML VIAL ONE (15:31)
[2016-11-25] MEDS ORDERED: PROPOFOL 10 MG/ML 20 ML VIAL IV ONE (15:31)
[2016-11-25] MEDS ORDERED: SUCCINYLCHOLINE CHLORIDE 100 MG/5 ML SYR IV ONE (15:31)
[2016-11-25] MEDS ORDERED: GLYCOPYRROLATE 0.2 MG/ML 2 ML VIAL ONE (15:31)
[2016-11-25] MEDS ORDERED: ROCURONIUM BROMIDE 10 MG/ML 10 ML VIAL IV ONE (15:31)
[2016-11-25] MEDS ORDERED: KETOROLAC 30 MG/ML 1 ML VIAL ONE (15:31)
[2016-11-25] MEDS ORDERED: MIDAZOLAM 2 MG/2 ML VIAL ONE (15:31)
[2016-11-25 15:46] LABS: Hepatitis B Core IgM Index 0.07
[2016-11-25] MEDS ORDERED: BUPIVACAIN-EPI 0.25%-1:200,000 30 ML VIAL SQ ONE (15:53)
[2016-11-25] MEDS ORDERED: LACTATED RINGERS 1,000 ML IV ONE ×2 (15:54→16:21)
[2016-11-25 15:58] LABS: Hepatitis C Virus IgG Index 0.12
[2016-11-25 15:59] LABS: Hepatitis C Virus IgG Ab Negative (Negative)
[2016-11-25] MEDS ORDERED: HYDROcodone/APAP 5-325MG 1 EACH TAB PO PRN (16:21)
[2016-11-25] MEDS ORDERED: HYDROmorphone 1 MG/ML 1 ML SYRINGE IVP PRN (16:21)
--- NOTE | 2016-11-25 16:21 | P.OP ---
Date of Procedure: 11/25/16 Preoperative Diagnosis: Cholecystitis Cholelithiasis Postoperative Diagnosis: Cholecystitis Cholelithiasis Procedure(s) Performed: Laparoscopic cholecystectomy Anesthesia: EUGENE Surgeon: Zion Vasquez Estimated Blood Loss (ml): 5 Pathology: other (Gallbladder) Condition: stable Disposition: PACU Description of Procedure: The patient was placed on the operating table. The patient received a general endotracheal tube anesthesia. The patients abdomen was prepped and draped in the usual sterile fashion. Through an infraumbilical stab incision, the fascia of the anterior abdominal wall was grasped with a pair of Kochers and then the Veress needle was placed in the peritoneal cavity. Position of the Veress needle was confirmed with positive drop test. The abdomen was then insufflated. After adequate insufflation, the 10 mm trocar was placed in the peritoneal cavity. Following this the laparoscope was placed in the peritoneal cavity. The patient was placed in the head-up, right side up position and then a 5 mm trocar was placed in the right lateral and right subcostal position under direct visualization. A 8 mm trocar was placed in the epigastric position. The gallbladder was visualized. The gallbladder appeared to be dilated and inflamed. The gallbladder was grasped in the fundus and infundibulum. Traction on the gallbladder was placed in the lateral and the cephalad positions. The triangle of Calot was visualized.. The cystic duct was bluntly dissected until the union of the cystic duct and common bile duct was seen. A 2-0 Ethibond suture was placed around the cystic duct and then the cystic duct was ligated using a time not device. PDS Endoloop was then placed throughout the cystic duct stump. The cystic artery divided and sealed with the Harmonic scissors. The gallbladder was then removed from the liver bed using Harmonic scissors. The gallbladder was then extracted through the epigastric port site. Operative field was checked for any bleeding spots and Harmonic scissors was used to coagulate the liver bed. The abdomen was irrigated. The trocars were removed. The skin was closed using interrupted 3- 0 Vicryl suture. Dermabond dressing were applied. The patient tolerated the procedure well.
[2016-11-25 17:10] LABS: Glucose,Whole Blood 133 mg/dL (75-99)
[2016-11-25] MEDS: KETOROLAC 30 MG/ML 1 ML VIAL IVP SCH ×2 (18:32→23:24)
[2016-11-25] MEDS ORDERED: BENZOCAINE/MENTHOL LOZENG 1 EACH LOZENGE MUCOUS MEM PRN (20:22)
[2016-11-25] MEDS ORDERED: ATORVASTATIN 10 MG TAB PO SCH (21:00)
[2016-11-25] MEDS: DOCUSATE 100 MG CAP PO SCH (21:04)
[2016-11-26] MEDS: ACETAMINOPHEN IV (For NPO) 1,000 MG in EMPTY BAG 1 BAG IVPB SCH ×4 (04:42→16:14)
[2016-11-26] MEDS: KETOROLAC 30 MG/ML 1 ML VIAL IVP SCH ×3 (06:22→16:13)
[2016-11-26] MEDS: PANTOPRAZOLE 40 MG/10 ML VIAL IVP SCH (07:40)
[2016-11-26] MEDS: DOCUSATE 100 MG CAP PO SCH (07:41)
[2016-11-26] MEDS: PIPERACILLIN-TAZOBACTAM 3.375 GM in DEXTROSE/WATER 1 50ML.BAG IVPB SCH ×2 (07:41→16:13)
[2016-11-26 07:42] LABS: ALT 61 U/L (21-72); AST 62 U/L (17-59); Alkaline Phosphatase 323 U/L (38-126); Anion Gap 10 mmol/L; Blood Urea Nitrogen 17 mg/dL (9-20); Calcium 8.2 mg/dL (8.4-10.2); Carbon Dioxide 21 mmol/L (22-30); Chloride 104 mmol/L (98-107); Glucose 131 mg/dL (74-99); Non-African American GFR(MDRD) >60 (>60 ml/min/1.73 sqM); Potassium 4.2 mmol/L (3.5-5.1); Sodium 135 mmol/L (137-145); Total Bilirubin 3.8 mg/dL (0.2-1.3); Total Protein 6.5 g/dL (6.3-8.2)
[2016-11-26 08:22] LABS: Aty Lym Flag Slight; CH 29.1; CHCM 32.8; HCT 40.1 % (39.0-53.0); HDW 2.78; MCH 29.1 pg (25.0-35.0); MCHC 32.5 g/dL (31.0-37.0); MCV 89.5 fL (80.0-100.0); Mean Platelet Volume 8.4; RBC 4.48 m/uL (4.30-5.90); RDW 14.3 % (11.5-15.5); WBC 9.3 k/uL (3.8-10.6); WBC (Perox) 9.27
--- NOTE | 2016-11-26 08:40 | P.PN ---
Subjective Principal diagnosis: Fever and elevated liver enzymes 71-year-old gentleman admitted with fever 1 week duration with elevated liver enzymes jaundice. He underwent laparoscopic cholecystectomy yesterday for acute cholecystitis. This morning he feels well. No recurrence of fevers. Bilirubin is still elevated but improved to 3.8. Hepatitis screen negative. Objective - Vital Signs Vital signs: Vital Signs Temp 96.3 F L 11/26/16 07:00 Pulse 84 11/26/16 07:00 Resp 17 11/26/16 07:00 BP 119/79 11/26/16 07:00 Pulse Ox 95 11/26/16 07:00 Intake & Output 11/25/16 11/26/16 11/26/16 18:59 06:59 18:59 Intake Total 3000 1840 Output Total 5 Balance 2995 1840 Intake: IV 1000 Intake, IV Titration 1200 1300 Amount ACETAMINOPHEN IV (For NPO 400 ) 1,000 mg In Empty Bag 1 bag @ 400 mls/hr IVPB Q6HR [facility] Rx#:[id number] Lactated Ringers 1,000 ml 500 @ 125 mls/hr IV .Q8H ONE Rx#:[id number] Sodium Chloride 0.9% 1, 800 800 000 ml @ 100 mls/hr IV . Q10H [facility]LI Rx#:[id number] Oral 800 540 Output: Estimated Blood Loss 5 Other: Voiding Method Toilet Toilet - Exam NoGeneral appearance: The patient is alert, oriented, in no acute distress. Jaundice. HET: Head is normocephalic and atraumatic. Pupils are equal and reactive. Sclerae icterus. Oropharynx is clear without lesions. Neck: Supple without lymphadenopathy. Trachea midline. Heart: S1 S2. Regular rate and rhythm. Lungs: No crackles or wheezes are heard. Abdomen: Soft, nontender, distended bloated with hypoactive bowel sounds. No peritoneal signs. No palpable organomegaly or masses. Extremities: Normal skin color and turgor. No cyanosis, rash, ulceration, clubbing, or edema. Radial and pedal pulses are 2/4 bilaterally. Neurological: No focal deficits. Strength and sensation are grossly intact.xam - Labs CBC & Chem 7: 11/25/16 08:04 11/26/16 06:57 Labs: Abnormal Lab Results - Last 24 Hours (Table) 11/25/16 11/25/1617 Range/Units 08:04 08:04 17:06 Plt Count 118 L (150-450) k/uL Monocytes # (Manual) 1.4 H (0-1.0) k/uL Sodium (137-145) mmol/L Carbon Dioxide (22-30) mmol/L Glucose (74-99) mg/dL POC Glucose (mg/dL) 133 H (75-99) mg/dL Calcium (8.4-10.2) mg/dL Total Bilirubin 4.9 H (0.2-1.3) mg/dL Conjugated Bilirubin 2.1 H (0.0-0.3) mg/dL Delta Bilirubin 1.9 H (0.0-0.2) mg/dL AST (17-59) U/L Alkaline Phosphatase (38-126) U/L Albumin (3.5-5.0) g/dL 11/26/16 Range/Units 06:57 Plt Count (150-450) k/uL Monocytes # (Manual) (0-1.0) k/uL Sodium 135 L (137-145) mmol/L Carbon Dioxide 21 L (22-30) mmol/L Glucose 131 H (74-99) mg/dL POC Glucose (mg/dL) (75-99) mg/dL Calcium 8.2 L (8.4-10.2) mg/dL Total Bilirubin 3.8 H (0.2-1.3) mg/dL Conjugated Bilirubin (0.0-0.3) mg/dL Delta Bilirubin (0.0-0.2) mg/dL AST 62 H (17-59) U/L Alkaline Phosphatase 323 H (38-126) U/L Albumin 2.9 L (3.5-5.0) g/dL Assessment and Plan (1) Elevated liver enzymes Narrative/Plan: Acute hepatitis secondary to possible choledocholithiasis, possible passage of choledocholithiasis possible ascending cholangitis. Status post laparoscopic cholecystectomy for acute cholecystitis. Other differentials to consider is toxic hepatitis from recent prescribed antibiotics possible viral. Status: Acute (2) Jaundice Status: Acute (3) Cholelithiasis Status: Acute (4) Fever Status: Acute Plan: 1. Continue with supportive measures. Antibiotics. 2. Repeat liver function tests in the a.m. 3. We'll continue to follow. Assessment and plan a care discussed with Dr. Reese.
[2016-11-26] MEDS: SODIUM CHLORIDE 0.9% 1,000 ML IV SCH (10:33)
[2016-11-26 11:16] LABS: Add Differential Manual Differential
[2016-11-26 11:18] LABS: Nucleated Red Blood Cells 0 /100 WBC (0-0); Total Cells Counted 100
[2016-11-26 13:39] VITALS: BP 122/71; PULSE 87; RESP 16; TEMP 97.7
--- NOTE | 2016-11-26 14:30 | CONS ---
DATE OF CONSULTATION: Reason for consultation is acute renal failure, sepsis and elevated liver enzymes and patient is a pleasant 71-year-old gentleman who came in with complaints of right upper quadrant abdominal pain, found to have elevated liver enzymes and choledocholithiasis and patient underwent cholecystectomy. Patient has a low-grade fever going on for about 3 or 4 days and patient has 24-hours T-max of 101.5, found to have cholecystitis. Patient underwent cholecystectomy today. His bilirubin is coming down and bilirubin and liver enzymes are coming down and patient from my medical perspective can be discharged. Patient is taking ampicillin and levofloxacin as an outpatient, which can be discontinued and I started him on IV fluids yesterday for his acute renal failure, which is improving. Patient did pass gas. Patient is ambulating in the [place] very well and patient did apparently moved his bowel as well. Patient's liver enzymes are expected to come down, okay to be discharged from medical perspective. Patient denied any more fevers. Patient denied any cough, runny nose. Except for minimal soreness, denied any significant continued abdominal pain. Patient was given antibiotics for possibility of pneumonia, although my suspicion is low for that and patient will not need levofloxacin. Patient did have some bibasilar atelectasis and although it was read as vascular congestion, my suspicion is low for that as well and I do not believe patient will need diuretic therapy. Patient does have some prominence of the interlobar septum, because of that I will go and discontinue the IV fluids but I do not believe he will need Lasix. REVIEW OF SYSTEMS: CONSTITUTIONAL: No fever, no malaise, no fatigue. HEENT: No recent visual problems or hearing problems. Denied any sore throat. CARDIOVASCULAR: No chest pain, orthopnea, PND, no palpitations, no syncope. PULMONARY: No shortness of breath, no cough, no hemoptysis. GASTROINTESTINAL: As described in HPI. NEUROLOGICAL: No headaches, no weakness, no numbness. HEMATOLOGICAL: Denies any bleeding or petechiae. GENITOURINARY: Denies any burning micturition, frequency, or urgency. MUSCULOSKELETAL/RHEUMATOLOGICAL: Denies any joint pain, swelling, or any muscle pain. ENDOCRINE: Denies any polyuria or polydipsia. The rest of the 14 point review of systems is negative. PAST MEDICAL HISTORY: Significant for hypertension, hernia repair. SOCIAL HISTORY: Former smoker. Denied any alcohol abuse or any drug abuse. FAMILY HISTORY: Denied any family history of hypertension, diabetes mellitus or coronary disease in the family, hyperlipidemia. Home medications include acetaminophen, multivitamin, simvastatin, amlodipine, sitagliptin, amoxicillin, and Cialis. ALLERGIES: No known drug allergies. PHYSICAL EXAMINATION: VITAL SIGNS: Temperature 24-hour T-max is 100.4, presently 96.43, pulse of 84, respiratory rate of 17. Blood pressure is 190/79, saturating at 95% on room air. GENERAL: The patient is alert and oriented x3, not in any acute distress. Well developed, well nourished. HEENT: Pupils are round and equally reacting to light. EOMI. No scleral icterus. No conjunctival pallor. Normocephalic, atraumatic. No pharyngeal erythema. No thyromegaly. CARDIOVASCULAR: S1 and S2 present. No murmurs, rubs, or gallops. PULMONARY: Chest is clear to auscultation, no wheezing or crackles. ABDOMEN: Postsurgically packed, the surgical site area appears to be clean. Patient does have bowel sounds. MUSCULOSKELETAL: No joint swelling or deformity. EXTREMITIES: No cyanosis, clubbing, or pedal edema. NEUROLOGICAL: Gross neurological examination did not reveal any focal deficits. SKIN: No rashes. Laboratory data was discussed already earlier with improving AST and ALT. ASSESSMENT AND PLAN: 1. Cholecystitis and cholelithiasis and sepsis secondary to that and patient has significant improvement in sepsis and patient's liver enzymes are expected to come down and patient probably will benefit from a week of Augmentin, recommend to discontinue levofloxacin. 2. Type 2 diabetes mellitus, diabetic diet and continue with Januvia and follow up with the primary care physician for the management as an outpatient. 3. Chest x-ray showing mild minimal pulmonary edema in the chest x-ray. It is probably because of IV fluids he received, my suspicion is low for heart failure and patient is clinically doing well without any shortness of breath, but does not have any JVD. Further work-up can be done as an outpatient if he continues to have pulmonary edema and respiratory issues. 4. Hyperlipidemia. Continue with simvastatin. 5. Hypertension. Continue with his home medications of amlodipine and Benazepril. Acute renal failure improved with IV fluids, but IV fluids have now discontinued because of this pulmonary edema and patient will need to follow Dr. Perez in about 3 to 7 days. Thank you for letting me participate in this patient's care. Will sign off at this point of time. Patient can be discharged from medical perspective. If patient remains in the hospital, I will reevaluate the patient tomorrow and assess for continue pulmonary edema tomorrow.
--- NOTE | 2016-11-26 17:59 | P.DS ---
Providers Date of admission: 11/25/16 02:08 Expected date of discharge: 11/26/16 Attending physician: Zion Vasquez Consults: 11/25/16 02:43 Consult Physician Urgent Consulting Provider: Bassam Reese Consult Reason/Comments: Choledocholithiasis with acute cholecystitis Do you want consulting provider notified?: Yes 11/25/16 16:21 Consult Physician Routine Consulting Provider: Claudine Powers Consult Reason/Comments: Medical management Do you want consulting provider notified?: Yes Primary care physician: [facility] Course: Patient is a 71-year-old male admitted through the emergency department with complaints of malaise and not feeling well with persistent fevers and evidence of elevated liver function tests. Patient had previously been treated for presumed pneumonia with Levaquin and amoxicillin. Ultrasound of abdomen with evidence of cholecystitis and cholelithiasis. Patient underwent laparoscopic cholecystectomy. Patient tolerated procedure well. Liver enzymes improved after surgery. Incisional pain control. Patient was up walking without difficulty. Patient was urinating without difficulty. No fevers. Patient had a bowel movement. Patient was deemed stable for discharge with close follow-up at outpatient setting. Discharge diagnoses: 1. Cholecystitis with cholelithiasis. The above impression and plan have been discussed and directed by Dr. aVsquez. Ingrid SALVADOR acting as scribe for Dr. Vasquez. Pertinent Studies: Chest x-ray; abdomen ultrasound; EKG Procedures: Laparoscopic cholecystectomy Patient Condition at Discharge: Good Plan - Discharge Summary New Discharge Prescriptions: Amoxicillin/Potassium Clav [Augmentin 875-125 Tablet] 1 tab PO Q12HR #14 tab Docusate [Colace] 100 mg PO BID #20 cap HYDROcodone/APAP 7.5-325MG [[place] 7.5-325] 1 tab PO Q6HR PRN #28 tab PRN Reason: Pain Discharge Medication List Acetaminophen Tab [Tylenol] 650 mg PO Q6H PRN 11/19/16 [History] Simvastatin [Zocor] 20 mg PO HS 11/19/16 [History] amLODIPine BESYLATE/BENAZEPRIL [Lotrel 10-20 mg Capsule] 1 cap PO DAILY [History] sitaGLIPtin [Januvia] 100 mg PO DAILY 11/19/16 [History] Tadalafil [Cialis] 5 mg PO DAILY 11/24/16 [History] HYDROcodone/APAP 7.5-325MG [[place] 7.5-325] 1 tab PO Q6HR PRN #28 tab 11/25/16 [ Rx] Amoxicillin/Potassium Clav [Augmentin 875-125 Tablet] 1 tab PO Q12HR #14 tab [Rx] Docusate [Colace] 100 mg PO BID #20 cap 11/26/16 [Rx] Follow up Appointment(s)/Referral(s): Anton Perez DO [Primary Care Provider] - 3 Days (Office closed. Patient to call and schedule follow up appointment.) Zion Vasquez MD [STAFF PHYSICIAN] - 12/03/16 2:00 pm (Please bring drivers license, insurance card, and list of home medications.) Patient Instructions/Handouts: *Surgery [facility] - Laparoscopic Cholecystectomy Discharge Instructions Activity/Diet/Wound Care/Special Instructions: No heavy lifting, pushing, or pulling items greater than 10 pounds. Low fat diet . Shower daily, no soaking in bath tubs, pools, or hot tubs. No driving while taking pain medication. Notify surgeon with any signs or symptoms of infection, increased pain, or not tolerating diet. Discharge Disposition: HOME SELF-CARE
[2016-11-27] MEDS ORDERED: PANTOPRAZOLE 40 MG TABLET PO SCH (09:00)
== END 2016-11-26 19:36 | disposition home or self-care (01) | DRG 419 ==
LOC: EC 21:35 → 3SUR 11-25 02:08
PROVIDERS: ADMIT Surgery; ATTEND Surgery
PROC: 0FT44ZZ Resection of Gallbladder, Percutaneous Endoscopic Approach (ICD-10-PCS; principal; 2016-11-25 09:45)
DX: K80.00 Calculus of gallbladder with acute cholecystitis without obstruction (principal); I11.9 Hypertensive heart disease without heart failure; E11.9 Type 2 diabetes mellitus without complications; R50.9 Fever, unspecified; R79.89 Other specified abnormal findings of blood chemistry; R74.8 Abnormal levels of other serum enzymes; R53.83 Other fatigue; E78.5 Hyperlipidemia, unspecified; Z79.899 Other long term (current) drug therapy; Z87.891 Personal history of nicotine dependence; Z79.84 Long term (current) use of oral hypoglycemic drugs; Z87.01 Personal history of pneumonia (recurrent)
CPT/HCPCS: 36415; 71020; 76705; 80053; 80074; 81001; 82150; 82248; 82550; 82553; 83690; 83735; 84484; 85025; 85610; 85730; 88304; 93005

== ENCOUNTER 2016-12-03 08:40 | Emergency (ER) | payer MEDICARE, BC ==
[2016-12-03 08:49] VITALS: RESP 16; TEMP 97.9
--- NOTE | 2016-12-03 09:13 | ED ---
Extremity Problem HPI - General Chief complaint: Extremity Problem,Nontraumatic Stated complaint: leg pain and foot swelling Time Seen by Provider: 12/03/16 08:54 Source: patient, RN notes reviewed Mode of arrival: ambulatory Limitations: no limitations - History of Present Illness Initial comments: 71 male presents emergency Department chief complaint bilateral leg pain, swelling. Patient states this started last few days. Patient is 1 week postop cholecystectomy by Dr. Vasquez. He states that he did follow-up and he was told that this is most likely just related to his IV fluids that he received. Patient states that he is having achy pain in his upper legs were swelling of his lower legs. Patient denies any chest pain or shortness of breath he has no history of CHF. Patient states that he's only taken Tylenol for his abdominal surgery and states that it is helping that he has minimal pain. Denies any other complaints at this time. - Related Data Home Medications Medication Instructions Recorded Confirmed Acetaminophen Tab [Tylenol] 650 mg PO Q6H PRN 11/19/16 12/03/16 Simvastatin [Zocor] 20 mg PO HS 11/19/16 12/03/16 amLODIPine BESYLATE/BENAZEPRIL 1 cap PO DAILY 11/19/16 12/03/16 [Lotrel 10-20 mg Capsule] sitaGLIPtin [Januvia] 100 mg PO DAILY 11/19/16 12/03/16 Tadalafil [Cialis] 5 mg PO DAILY PRN 11/24/16 12/03/16 Gabapentin [Neurontin] 300 mg PO BID 12/03/16 12/03/16 Previous Rx's Medication Instructions Recorded HYDROcodone/APAP 7.5-325MG [[place] 1 tab PO Q6HR PRN #28 tab 11/25/16 7.5-325] Amoxicillin/Potassium Clav 1 tab PO Q12HR #14 tab 11/26/16 [Augmentin 875-125 Tablet] Acetaminophen-Codeine 300-30mg 1 tab PO Q4H PRN #20 tablet 12/03/16 [Tylenol #3] Allergies Allergy/AdvReac Type Severity Reaction Status Date / Time No Known Allergies Allergy Verified 12/03/16 09:22 Review of Systems ROS Statement: Those systems with pertinent positive or pertinent negative responses have been documented in the HPI. ROS Other: All systems not noted in ROS Statement are negative. Past Medical History Past Medical History: Hypertension History of Any Multi-Drug Resistant Organisms: None Reported Past Surgical History: Cholecystectomy, Hernia Repair Past Anesthesia/Blood Transfusion Reactions: No Reported Reaction Past Psychological History: No Psychological Hx Reported Smoking Status: Former smoker Past Alcohol Use History: None Reported Past Drug Use History: None Reported General Exam Limitations: no limitations General appearance: alert, in no apparent distress Head exam: Present: atraumatic, normocephalic, normal inspection Respiratory exam: Present: normal lung sounds bilaterally. Absent: respiratory distress, wheezes, rales, rhonchi, stridor Cardiovascular Exam: Present: regular rate, normal rhythm, normal heart sounds. Absent: systolic murmur, diastolic murmur, rubs, gallop, clicks GI/Abdominal exam: Present: soft, tenderness (Minimal), normal bowel sounds, other (Surgical sites healing well). Absent: distended, guarding, rebound, rigid Extremities exam: Present: pedal edema (Bilateral 1+), other (Pedal pulses equal bilaterally +2) Back exam: Absent: CVA tenderness (R), CVA tenderness (L) Neurological exam: Present: alert, oriented X3, CN II-XII intact Skin exam: Present: warm, dry, intact, normal color. Absent: rash Course Vital Signs 12/03/16 08:45 Temperature 97.9 F Pulse Rate 86 Respiratory 16 Rate Blood Pressure 134/77 O2 Sat by Pulse 97 Oximetry Medical Decision Making - Medical Decision Making 71-year-old male presents emergency Department with chief complaint of lower external swelling. Patient lab work within normal limits. Patient's ultrasound negative for acute DVT. Patient does have some leg pain related to edema. Patient advised to wear compression stockings. Patient follow-up with primary care physician. Patient requesting pain medication for his achiness legs. Patient be given Tylenol with codeine return parameters were discussed. - Lab Data Result diagrams: 12/03/16 09:30 12/03/16 09:30 Lab Results 12/03/16 12/03/16 12/03/16 Range/Units 09:30 09:30 09:30 WBC 10.1 (3.8-10.6) k/uL RBC 5.05 (4.30-5.90) m/uL Hgb 14.3 (13.0-17.5) gm/dL Hct 43.6 (39.0-53.0) % MCV 86.3 (80.0-100.0) fL MCH 28.4 (25.0-35.0) pg MCHC 32.9 (31.0-37.0) g/dL RDW 15.7 H (11.5-15.5) % Plt Count 247 (150-450) k/uL Sodium 132 L (137-145) mmol/L Potassium 4.5 (3.5-5.1) mmol/L Chloride 98 (98-107) mmol/L Carbon Dioxide 23 (22-30) mmol/L Anion Gap 11 mmol/L BUN 11 (9-20) mg/dL Creatinine 0.77 (0.66-1.25) mg/dL Est GFR (MDRD) Af Amer >60 (>60 ml/min/1.73 sqM) Est GFR (MDRD) Non-Af >60 (>60 ml/min/1.73 sqM) Glucose 113 H (74-99) mg/dL Calcium 8.7 (8.4-10.2) mg/dL Total Bilirubin 2.6 H (0.2-1.3) mg/dL AST 50 (17-59) U/L ALT 37 (21-72) U/L Alkaline Phosphatase 457 H (38-126) U/L NT-Pro-B Natriuret Pep 311 pg/mL Total Protein 8.5 H (6.3-8.2) g/dL Albumin 3.5 (3.5-5.0) g/dL Disposition Clinical Impression: Leg pain, Lower extremity edema Disposition: HOME SELF-CARE Condition: Stable Instructions: Leg Edema (ED) Additional Instructions: Please return to the Emergency Department if symptoms worsen or any other concerns. Prescriptions: Acetaminophen-Codeine 300-30mg [Tylenol #3] 1 tab PO Q4H PRN #20 tablet PRN Reason: pain Time of Disposition: 10:41
[2016-12-03 09:42] LABS: Aty Lym Flag Marked; CH 28.8; CHCM 33.6; HCT 43.6 % (39.0-53.0); HGB 14.3 gm/dL (13.0-17.5); MCH 28.4 pg (25.0-35.0); MCHC 32.9 g/dL (31.0-37.0); MCV 86.3 fL (80.0-100.0); RBC 5.05 m/uL (4.30-5.90); RDW 15.7 % (11.5-15.5); WBC 10.1 k/uL (3.8-10.6); WBC (Perox) 9.51
[2016-12-03 09:54] LABS: ALT 37 U/L (21-72); AST 50 U/L (17-59); Alkaline Phosphatase 457 U/L (38-126); Anion Gap 11 mmol/L; Blood Urea Nitrogen 11 mg/dL (9-20); Calcium 8.7 mg/dL (8.4-10.2); Carbon Dioxide 23 mmol/L (22-30); Chloride 98 mmol/L (98-107); Glucose 113 mg/dL (74-99); Non-African American GFR(MDRD) >60 (>60 ml/min/1.73 sqM); Sodium 132 mmol/L (137-145); Total Bilirubin 2.6 mg/dL (0.2-1.3); Total Protein 8.5 g/dL (6.3-8.2)
[2016-12-03 10:01] LABS: Potassium 4.5 mmol/L (3.5-5.1)
--- NOTE | 2016-12-03 10:24 | US ---
EXAMINATION TYPE: US venous doppler duplex LE BI DATE OF EXAM: 12/03/2016 9:54 AM COMPARISON: NONE CLINICAL HISTORY: Pain. Pt states bilat leg pain and swelling SIDE PERFORMED: Bilateral TECHNIQUE: The lower extremity deep venous system is examined utilizing real time linear array sonog morteza with graded compression, doppler sonography and color-flow sonography. VESSELS IMAGED: External Iliac Vein (EIV) Common Femoral Vein Deep Femoral Vein Greater Saphenous Vein * Femoral Vein Popliteal Vein Small Saphenous Vein * Proximal Calf Veins (* superficial vessels) Right Leg: Negative for DVT Left Leg: Negative for DVT IMPRESSION: No evidence of DVT at this time.
[2016-12-03 10:55] VITALS: BP 139/66; PULSE 87
[2016-12-03 11:19] LABS: Add Differential Manual Differential
[2016-12-03 11:22] LABS: Nucleated Red Blood Cells 0 /100 WBC (0-0); Total Cells Counted 200
[2016-12-03 11:27] LABS: Manual Review Performed; RBC Morphology Normal
== END 2016-12-03 10:55 | disposition home or self-care (01) ==
LOC: EC 08:40
DX: M79.604 Pain in right leg (principal); M79.605 Pain in left leg; R60.0 Localized edema; I10 Essential (primary) hypertension; Z87.891 Personal history of nicotine dependence; Z79.84 Long term (current) use of oral hypoglycemic drugs; Z79.899 Other long term (current) drug therapy
CPT/HCPCS: 36415; 80053; 83880; 85025; 93970; 99284

== ENCOUNTER 2016-12-06 11:05 | Emergency (ER) | payer MEDICARE, BC ==
[2016-12-06 11:11] VITALS: BP 161/74; PULSE 75; RESP 20; TEMP 97.5
--- NOTE | 2016-12-06 12:01 | ED ---
General Adult HPI - General Chief complaint: Back Pain/Injury Stated complaint: back pain Time Seen by Provider: 12/06/16 11:59 Source: patient, RN notes reviewed, old records reviewed Mode of arrival: ambulatory Limitations: no limitations - History of Present Illness Initial comments: This is a 71-year-old out of the ER for reevaluation back pain. Patient is acute back pain for 2 days now. Patient's pain is progressing. Patient has no history of back pain no history of trauma no injuries no fevers. Patient does have recent surgical history with gallbladder removal. Patient has no modifying factors for pain. No nausea or vomiting. No diarrhea. No loss of bowel or bladder. No neurological deficits. Pain is sometimes better when he moves worse when sitting - Related Data Home Medications Medication Instructions Recorded Confirmed Simvastatin [Zocor] 20 mg PO DAILY 11/19/16 12/06/16 amLODIPine BESYLATE/BENAZEPRIL 1 cap PO DAILY 11/19/16 12/06/16 [Lotrel 10-20 mg Capsule] sitaGLIPtin [Januvia] 100 mg PO DAILY 11/19/16 12/06/16 Tadalafil [Cialis] 5 mg PO DAILY PRN 11/24/16 12/06/16 Previous Rx's Medication Instructions Recorded Acetaminophen-Codeine 300-30mg 1 tab PO Q4H PRN #20 tablet 12/03/16 [Tylenol #3] Diazepam [Valium] 5 mg PO HS #20 tab 12/06/16 HYDROcodone/APAP 5-325MG [[place] 1 tab PO Q6HR PRN #30 tab 12/06/16 5-325] Naproxen [Naprosyn] 500 mg PO Q12HR #60 tab 12/06/16 Allergies Allergy/AdvReac Type Severity Reaction Status Date / Time No Known Allergies Allergy Verified 12/06/16 12:24 Review of Systems ROS Statement: Those systems with pertinent positive or pertinent negative responses have been documented in the HPI. ROS Other: All systems not noted in ROS Statement are negative. Past Medical History Past Medical History: Hypertension History of Any Multi-Drug Resistant Organisms: None Reported Past Surgical History: Cholecystectomy, Hernia Repair Past Anesthesia/Blood Transfusion Reactions: No Reported Reaction Past Psychological History: No Psychological Hx Reported Smoking Status: Former smoker Past Alcohol Use History: None Reported Past Drug Use History: None Reported General Exam Limitations: no limitations General appearance: alert, in no apparent distress Head exam: Present: atraumatic, normocephalic, normal inspection Eye exam: Present: normal appearance, PERRL, EOMI. Absent: scleral icterus, conjunctival injection, periorbital swelling ENT exam: Present: normal exam, mucous membranes moist Neck exam: Present: normal inspection. Absent: tenderness, meningismus, lymphadenopathy Respiratory exam: Present: normal lung sounds bilaterally. Absent: respiratory distress, wheezes, rales, rhonchi, stridor Cardiovascular Exam: Present: regular rate, normal rhythm, normal heart sounds. Absent: systolic murmur, diastolic murmur, rubs, gallop, clicks GI/Abdominal exam: Present: soft, normal bowel sounds. Absent: distended, tenderness, guarding, rebound, rigid Extremities exam: Present: normal inspection, full ROM, normal capillary refill. Absent: tenderness, pedal edema, joint swelling, calf tenderness Back exam: Present: normal inspection Neurological exam: Present: alert, oriented X3, CN II-XII intact Psychiatric exam: Present: normal affect, normal mood Skin exam: Present: warm, dry, intact, normal color. Absent: rash Course Vital Signs 12/06/16 11:10 Temperature 97.5 F L Pulse Rate 75 Respiratory 20 Rate Blood Pressure 161/74 O2 Sat by Pulse 99 Oximetry - Reevaluation(s) Reevaluation #1: 12/06/16 13:24 At this point patient's back pain seems to have resolved, EKG Findings - EKG Comments: EKG Findings:: EKG shows normal sinus rhythm rate of 96, IN 148, QRS 102, QTC 560 Medical Decision Making - Medical Decision Making 71 mallear with curette back pain. Likely mechanical in nature, no reproducing of pain on palpation, no fevers. No other complaints. Worse with walking, despite patient's pain is improved x-rays normal and patient can be discharged - Lab Data Result diagrams: 12/06/16 12:40 12/06/16 12:40 Lab Results 12/06/16 12/06/16 12/06/16 Range/Units 12:40 12:40 12:40 WBC 8.8 (3.8-10.6) k/uL RBC 4.96 (4.30-5.90) m/uL Hgb 14.0 (13.0-17.5) gm/dL Hct 42.4 (39.0-53.0) % MCV 85.7 (80.0-100.0) fL MCH 28.2 (25.0-35.0) pg MCHC 32.9 (31.0-37.0) g/dL RDW 15.8 H (11.5-15.5) % Plt Count 271 (150-450) k/uL Neutrophils % (Manual) 32.0 % Lymphocytes % (Manual) 47.0 % Monocytes % (Manual) 20.0 % Basophils % (Manual) 1.0 % Neutrophils # (Manual) 2.8 (1.3-7.7) k/uL Lymphocytes # (Manual) 4.1 (1.0-4.8) k/uL Monocytes # (Manual) 1.8 H (0-1.0) k/uL Basophils # (Manual) 0.1 (0-0.2) k/uL Nucleated RBCs 0 (0-0) /100 WBC Manual Slide Review Performed Poikilocytosis (manual Present Sodium 128 L (137-145) mmol/L Potassium 4.5 (3.5-5.1) mmol/L Chloride 95 L (98-107) mmol/L Carbon Dioxide 24 (22-30) mmol/L Anion Gap 9 mmol/L BUN 11 (9-20) mg/dL Creatinine 0.80 (0.66-1.25) mg/dL Est GFR (MDRD) Af Amer >60 (>60 ml/min/1.73 sqM) Est GFR (MDRD) Non-Af >60 (>60 ml/min/1.73 sqM) Glucose 123 H (74-99) mg/dL Calcium 8.5 (8.4-10.2) mg/dL Total Bilirubin 1.8 H (0.2-1.3) mg/dL AST 39 (17-59) U/L ALT 38 (21-72) U/L Alkaline Phosphatase 330 H (38-126) U/L Total Protein 8.0 (6.3-8.2) g/dL Albumin 3.6 (3.5-5.0) g/dL Lipase 178 (23-300) U/L Urine Color Yellow Urine Appearance Clear (Clear) Urine pH 6.0 (5.0-8.0) Ur Specific [place] 1.017 (1.001-1.035) Urine Protein 1+ H (Negative) Urine Glucose (UA) 1+ H (Negative) Urine Ketones Negative (Negative) Urine Blood Negative (Negative) Urine Nitrite Negative (Negative) Urine Bilirubin Negative (Negative) Urine Urobilinogen 4.0 (<2.0) mg/dL Ur Leukocyte Esterase Negative (Negative) Urine WBC <1 (0-5) /hpf Urine Mucus Rare H (None) /hpf - Radiology Data Radiology results: report reviewed (X-ray lumbar sickle spine is negative for traumatic injury), image reviewed Disposition Clinical Impression: Strain of lumbar region, Mechanical back pain, Mid back pain Disposition: HOME SELF-CARE Condition: Good Instructions: Acute Low Back Pain (ED) Prescriptions: Diazepam [Valium] 5 mg PO HS #20 tab HYDROcodone/APAP 5-325MG [[place] 5-325] 1 tab PO Q6HR PRN #30 tab PRN Reason: Pain Naproxen [Naprosyn] 500 mg PO Q12HR #60 tab Referrals: Anton Perez DO [Primary Care Provider] - 1-2 days
[2016-12-06] MEDS ORDERED: SODIUM CHLORIDE 0.9% 1,000 ML IV STA (12:15)
[2016-12-06] MEDS ORDERED: MORPHINE SULFATE 4 MG/ML SYRINGE IV STA (12:15)
[2016-12-06 12:52] LABS: Appearance,Urine Clear (Clear); Bilirubin,Urine Negative (Negative); Glucose,Urine (UA) 1+ (Negative); Ketones,Urine Negative (Negative); Leukocyte Esterase,Urine Negative (Negative); Mucus,Urine Rare /hpf; Nitrite,Urine Negative (Negative); Particle Count 1453; Protein,Urine 1+ (Negative); Specific Gravity,Urine 1.017 (1.001-1.035); UA Billing (MACRO vs. MICRO) MICRO; WBC,Urine <1 /hpf (0-5)
[2016-12-06 12:53] LABS: Aty Lym Flag Marked; CH 28.7; CHCM 33.7; HCT 42.4 % (39.0-53.0); HDW 2.79; MCH 28.2 pg (25.0-35.0); MCHC 32.9 g/dL (31.0-37.0); MCV 85.7 fL (80.0-100.0); Mean Platelet Volume 6.6; RBC 4.96 m/uL (4.30-5.90); RDW 15.8 % (11.5-15.5); WBC 8.8 k/uL (3.8-10.6); WBC (Perox) 8.74
[2016-12-06 12:59] LABS: ALT 38 U/L (21-72); AST 39 U/L (17-59); Alkaline Phosphatase 330 U/L (38-126); Anion Gap 9 mmol/L; Blood Urea Nitrogen 11 mg/dL (9-20); Calcium 8.5 mg/dL (8.4-10.2); Carbon Dioxide 24 mmol/L (22-30); Chloride 95 mmol/L (98-107); Glucose 123 mg/dL (74-99); Non-African American GFR(MDRD) >60 (>60 ml/min/1.73 sqM); Potassium 4.5 mmol/L (3.5-5.1); Sodium 128 mmol/L (137-145); Total Bilirubin 1.8 mg/dL (0.2-1.3)
[2016-12-06 13:11] LABS: Add Differential Manual Differential
[2016-12-06 13:14] LABS: Manual Review Performed; Nucleated Red Blood Cells 0 /100 WBC (0-0); Total Cells Counted 100
[2016-12-06] MEDS ORDERED: KETOROLAC 30 MG/ML 1 ML VIAL IVP STA (13:14)
--- NOTE | 2016-12-06 13:23 | XR ---
Lumbar spine HISTORY: Low back pain 5 views of the lumbosacral spine No comparisons There is a dextroscoliosis centered at the mid lumbar spine. Surgical clips are present in the right upper quadrant. No evident spondylolysis, there is anterolisthesis grade 1 L5-S1. Sclerosis present i n the posterior elements. Loss of disc height present at the intervertebral levels. This is greatest at L3-4, L1-2. There is associated spondylosis. Sclerosis present in the posterior elements. Lumbar v ertebral bodies show preserved height. Bone mineralization is maintained. IMPRESSION: Degenerative disc disease. Facet arthropathy.
== END 2016-12-06 13:33 | disposition home or self-care (01) ==
LOC: EC 11:05
DX: S39.012A Strain of muscle, fascia and tendon of lower back, initial encounter (principal); I10 Essential (primary) hypertension; Z87.891 Personal history of nicotine dependence; Z79.899 Other long term (current) drug therapy; X58.XXXA Exposure to other specified factors, initial encounter
CPT/HCPCS: 36415; 80053; 83690; 85025; 81001; 87086; 72110; 99284; 96374; 96375; 96361; J2270; J1885

== ENCOUNTER → 2016-12-14 | Outpatient (CLI) | payer MEDICARE, BC ==
[2016-12-14 12:03] LABS: Aty Lym Flag Slight; CH 28.5; CHCM 32.1; HCT 42.1 % (39.0-53.0); HDW 2.67; HGB 13.6 gm/dL (13.0-17.5); MCH 28.9 pg (25.0-35.0); MCHC 32.3 g/dL (31.0-37.0); MCV 89.5 fL (80.0-100.0); Mean Platelet Volume 6.5; WBC 7.4 k/uL (3.8-10.6); WBC (Perox) 7.24
[2016-12-14 12:07] LABS: ALT 26 U/L (21-72); AST 31 U/L (17-59); Alkaline Phosphatase 180 U/L (38-126); Anion Gap 9 mmol/L; Bilirubin, Delta 0.7 mg/dL (0.0-0.2); Blood Urea Nitrogen 15 mg/dL (9-20); Calcium 10.2 mg/dL (8.4-10.2); Carbon Dioxide 27 mmol/L (22-30); Chloride 105 mmol/L (98-107); Glucose 117 mg/dL (74-99); Non-African American GFR(MDRD) >60 (>60 ml/min/1.73 sqM); Potassium 4.8 mmol/L (3.5-5.1); Sodium 141 mmol/L (137-145); Total Bilirubin 1.1 mg/dL (0.2-1.3); Total Protein 8.1 g/dL (6.3-8.2)
[2016-12-14 14:46] LABS: Add Differential Manual Differential
[2016-12-14 14:50] LABS: Nucleated Red Blood Cells 0 /100 WBC (0-0); Total Cells Counted 100
[2016-12-14 14:54] LABS: Polychromasia Present
== END | disposition home or self-care (01) ==
LOC: LABWHC1 10:58
PROVIDERS: ATTEND Family Medicine
DX: E86.0 Dehydration (principal); R17 Unspecified jaundice
CPT/HCPCS: 36415; 80048; 80076; 85025

== ENCOUNTER → 2017-01-04 | Outpatient (CLI) | payer MEDICARE, BC ==
[2017-01-04 13:33] LABS: Bilirubin, Delta 0.5 mg/dL (0.0-0.2); Total Bilirubin 0.8 mg/dL (0.2-1.3); Total Protein 7.8 g/dL (6.3-8.2)
== END | disposition home or self-care (01) ==
LOC: LABWHC1 12:52
PROVIDERS: ATTEND Family Medicine
DX: R80.9 Proteinuria, unspecified (principal); R79.89 Other specified abnormal findings of blood chemistry
CPT/HCPCS: 36415; 80076; 86335

== ENCOUNTER → 2017-02-16 | Outpatient (CLI) | payer MEDICARE, BC ==
--- NOTE | 2017-02-16 13:42 | XR ---
EXAMINATION TYPE: XR knee complete LT , 4 VIEWS DATE OF EXAM ORDERED: 02/16/2017 HISTORY: DJD M15. COMPARISON: None. FINDINGS: Joint spaces are maintained. There is no chondrocalcinosis. No joint effusion is seen. The re is mild hypertrophic spurring in the patellofemoral joint. 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 IMPRESSION: 1. NO ACUTE OSSEOUS LESION. 2. EVIDENCE OF OLD TRAUMA TO THE MEDIAL COLLATERAL LIGAMENT. 3. EARLIEST CHANGES OF OSTEOARTHRITIS.
== END | disposition home or self-care (01) ==
LOC: RADXRMAIN 13:13
PROVIDERS: ATTEND Family Medicine
DX: M17.12 Unilateral primary osteoarthritis, left knee (principal)

== ENCOUNTER → 2017-03-24 | Outpatient (CLI) | payer MEDICARE, BC ==
[2017-03-24 14:08] LABS: Hemoglobin A1C 6.4 % (4.2-6.1)
[2017-03-24 19:13] LABS: Treponemal Ab Non-Reactive (Non-Reactive)
[2017-03-24 21:19] LABS: ANA w/Reflex to Titer NEGATIVE (NEGATIVE); RNP AB Interpretation NEGATIVE (NEGATIVE)
[2017-03-25 14:28] LABS: C-ANCA <1:20 Titer (<1:20); P-ANCA <1:20 Titer (<1:20)
[2017-03-26 15:08] LABS: Lyme IgG/IgM Interp NEGATIVE (NEGATIVE)
== END | disposition home or self-care (01) ==
LOC: LABWHC1 12:51
PROVIDERS: ATTEND Family Medicine
DX: G62.9 Polyneuropathy, unspecified (principal)
CPT/HCPCS: 36415; 82175; 82550; 82570; 82607; 82747; 83036; 83655; 83825; 84165; 84439; 84443; 85652; 86038; 86225; 86235; 86255; 86618; 86780

== ENCOUNTER 2017-06-30 09:20 | Day surgery (SDC) | payer MEDICARE, BC ==
[2017-06-29 08:53] VITALS: BMI 28.7
[~2017-06-30 09:20] MED LIST: DEXAMETHASONE SOD PHOSPHATE 10 MG/ML 1 ML VIAL IV ONE; HEPARIN SODIUM,PORCINE 5,000 UNIT/ML 1 ML VIAL SQ ONE; LIDOCAINE 1% 20 ML VIAL (10MG/ML) FOR IV START INTRADERMA PRN; MIDAZOLAM 2 MG/2 ML VIAL IV PRN; ONDANSETRON 4 MG/2 ML VIAL IVP ONE; SCOPOLAMINE 1.5MG/72HR PATCH TRANSDERM ONE; ceFAZolin IN SWFI 2 GM/20 ML SYRINGE IVP ONE
--- NOTE | 2017-06-30 11:36 | P.GSHP ---
History of Present Illness H&P Date: 06/30/17 Chief Complaint: Incisional hernia This is a 72-year-old male who is developed an incisional hernia at his umbilicus. Patient agrees laparoscopic cholestatic she presents today for laparoscopic robotic-assisted repair. Past Medical History Past Medical History: Diabetes Mellitus, GERD/Reflux, Hyperlipidemia, Hypertension History of Any Multi-Drug Resistant Organisms: None Reported Past Surgical History: Cholecystectomy, Hernia Repair Past Anesthesia/Blood Transfusion Reactions: No Reported Reaction Smoking Status: Former smoker - Past Family History Mother Family Medical History: Cancer Medications and Allergies Home Medications Medication Instructions Recorded Confirmed Type Simvastatin [Zocor] 20 mg PO HS 11/19/16 06/30/17 History amLODIPine BESYLATE/BENAZEPRIL 1 cap PO DAILY 11/19/16 06/30/17 History [Lotrel 10-20 mg Capsule] sitaGLIPtin [Januvia] 100 mg PO DAILY 11/19/16 06/30/17 History Tadalafil [Cialis] 5 mg PO DAILY 11/24/16 06/30/17 History Multivitamins, Thera [Multivitamin 1 tab PO DAILY 06/29/17 06/30/17 History (formulary)] Allergies Allergy/AdvReac Type Severity Reaction Status Date / Time No Known Allergies Allergy Verified 06/30/17 11:17 Surgical - Exam Vital Signs Temp Pulse Resp BP Pulse Ox 97.9 F 62 18 150/67 97 06/30/17 11:19 06/30/17 11:19 06/30/17 11:19 06/30/17 11:19 06/30/17 11:19 - General well developed, no distress - Eyes PERRL - ENT normal pinna - Neck no masses - Respiratory normal expansion - Cardiovascular Rhythm: regular - Abdomen Abdomen: soft, non tender Hernia: incisional (2 cm reducible incisional hernia at umbilicus) Assessment and Plan Assessment: Incisional hernia. We'll perform laparoscopic robotic-assisted repair.
[2017-06-30] MEDS: LACTATED RINGERS 1,000 ML IV SCH ×2 (11:37→11:54)
[2017-06-30] MEDS ORDERED: GLYCOPYRROLATE 0.2 MG/ML 2 ML VIAL ONE (11:56)
[2017-06-30] MEDS ORDERED: SUCCINYLCHOLINE CHLORIDE 100 MG/5 ML SYR IV ONE (11:56)
[2017-06-30] MEDS ORDERED: ROCURONIUM BROMIDE 10 MG/ML 10 ML VIAL IV ONE (11:56)
[2017-06-30] MEDS ORDERED: NEOSTIGMINE 1 MG/ML 10 ML VIAL ONE (11:56)
[2017-06-30] MEDS ORDERED: ONDANSETRON 4 MG/2 ML VIAL ONE (11:56)
[2017-06-30] MEDS ORDERED: ePHEDrine SULFATE/0.9% NACL/PF 50 MG/5 ML SYRINGE IV ONE (11:56)
[2017-06-30] MEDS ORDERED: PROPOFOL 10 MG/ML 20 ML VIAL IV ONE (11:56)
[2017-06-30] MEDS ORDERED: MIDAZOLAM 2 MG/2 ML VIAL ONE (11:56)
[2017-06-30] MEDS ORDERED: LIDOCAINE 1% INJ 10MG/ML (20 ML MDV) ONE (11:56)
[2017-06-30] MEDS ORDERED: fentaNYL (PF) 50 MCG/ML 2 ML AMP ONE (11:56)
[2017-06-30 12:00] LABS: Glucose,Whole Blood 93 mg/dL (75-99)
[2017-06-30] MEDS ORDERED: BUPIVACAINE-EPI 0.5%-1:200,000 10 ML VIAL SQ ONE (12:19)
--- NOTE | 2017-06-30 12:55 | P.OP ---
Date of Procedure: 06/30/17 Preoperative Diagnosis: Incisional hernia Postoperative Diagnosis: Incisional hernia Procedure(s) Performed: Laparoscopic robotic-assisted repair of incisional hernia Anesthesia: EUGENE Surgeon: Zion Vasquez Estimated Blood Loss (ml): 5 Pathology: none sent Condition: stable Disposition: PACU Description of Procedure: Patient's placed on the operating table in the supine position. He received general anesthesia. His abdomen was prepped and draped usual sterile fashion. The skin incision sites were anesthetized 1% local Xylocaine. Using 11 blade the skin was incised in the left upper quadrant. Using a 5 mm optical trocar under direct visualization the peritoneal cavity is entered. And then the pleural cavities insufflated. The laparoscope was then placed back into the peritoneal cavity. Next a 8 mm robotic trocar was placed in the left lower quadrant and a 12 mm trocar was placed the left lateral position and the original 5 mm trocar was exchanged for an 8 mm trocar.. Patient was undocked the robot. Patient positioned in the left side up position. The hernia defect was visualized and photographed. The hernial defect was then closed using oh the lock suture. Next the hernia repair was buttressed with a round ventral light ST mesh. This was secured with a 2 OV lock suture. The patient was then undocked the robot. The needles were retrieved. The 12 mm trocar site was closed with 0 Ethibond suture. The Hugo Whitney suture passer. The scope trochars withdrawn. The skin was closed interrupted 3-0 Monocryl suture. Dermabond was applied.
[2017-06-30] MEDS: HYDROmorphone 0.5 MG/0.5 ML SYRINGE IVP PRN ×3 (13:22→13:42)
[2017-06-30 13:23] VITALS: TEMP 97
[2017-06-30] MEDS ORDERED: ONDANSETRON 4 MG/2 ML VIAL IVP ONE (13:28)
[2017-06-30 15:15] VITALS: BP 123/66; PULSE 71; RESP 18
== END 2017-06-30 15:43 | disposition home or self-care (01) ==
LOC: OR 09:20
PROVIDERS: ATTEND Surgery
DX: K43.2 Incisional hernia without obstruction or gangrene (principal); E11.9 Type 2 diabetes mellitus without complications; K21.9 Gastro-esophageal reflux disease without esophagitis; E78.5 Hyperlipidemia, unspecified; I10 Essential (primary) hypertension; Z79.84 Long term (current) use of oral hypoglycemic drugs; Z79.899 Other long term (current) drug therapy; Z87.891 Personal history of nicotine dependence; Z80.9 Family history of malignant neoplasm, unspecified
CPT/HCPCS: 49654; 86900; 86901; 86850; 36415; C1781; J2250; J1644; J1100; J2710; J0690; J2405; J2001; J3010; J0330; J2704; J1170

== ENCOUNTER 2018-04-14 06:55 | Day surgery (SDC) | payer MEDICARE ==
[2018-04-12 13:55] VITALS: BMI 29.2
[2018-04-14] MEDS ORDERED: LACTATED RINGERS 1,000 ML IV ONE (07:09)
[2018-04-14 07:14] VITALS: TEMP 97.8
[2018-04-14 07:23] LABS: Glucose,Whole Blood 108 mg/dL (75-99)
[2018-04-14] MEDS ORDERED: PROPOFOL 10 MG/ML 20 ML VIAL IV ONE (07:54)
[2018-04-14] MEDS ORDERED: LIDOCAINE 1% INJ 10MG/ML (20 ML MDV) ONE (07:54)
--- NOTE | 2018-04-14 08:18 | P.PCN ---
Date of Procedure: 04/14/18 Procedure(s) Performed: Procedure: Total colonoscopy. Preoperative diagnosis: Screening for neoplasia, patient has history of polyps. Postoperative diagnosis: Sigmoid diverticulosis with no evidence of acute diverticulitis, strictures, polyps or cancer. Preparation: HalfLytely prep. Sedation: Was provided by anesthesia. Brief clinical history: The patient is a 72-year-old male who I have evaluated in the office last month regarding history of colon polyps. His last exam was in 2013. 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 This evaluation is to assess for neoplasia. Procedure: With the patient on his left lateral decubitus position and after informed consent and adequate sedation, the perianal area was inspected and it did not show any fissures or fistulas. There were no masses felt on digital rectal examination. The Olympus CFQ 160L video colonoscope was then inserted in the rectum in the usual fashion and advanced to the cecum. There were several diverticular orifices seen scattered in the sigmoid but I saw no evidence of acute diverticulitis or strictures. No polyps or tumors were seen or any obvious pathology. The patient tolerated the procedure well. Plan: The patient was reassured. He will follow up with you as planned. Consideration can be given for repeat exam in 5 years depending on his overall health at that time.
[2018-04-14 08:22] VITALS: RESP 16
[2018-04-14] MEDS ORDERED: LACTATED RINGERS 1,000 ML IV SCH (08:32)
[2018-04-14 08:50] VITALS: BP 154/70; PULSE 58
== END 2018-04-14 09:14 | disposition home or self-care (01) ==
LOC: ORWHC2ENDO 06:55
DX: Z12.11 Encounter for screening for malignant neoplasm of colon (principal); K57.30 Diverticulosis of large intestine without perforation or abscess without bleeding; Z86.010 Personal history of colon polyps; E11.9 Type 2 diabetes mellitus without complications; K21.9 Gastro-esophageal reflux disease without esophagitis; I10 Essential (primary) hypertension; E78.5 Hyperlipidemia, unspecified; Z79.84 Long term (current) use of oral hypoglycemic drugs; Z79.899 Other long term (current) drug therapy; Z87.891 Personal history of nicotine dependence
CPT/HCPCS: J2001; J2704; G0105; 45378

== ENCOUNTER 2019-01-28 15:05 | Inpatient (IN) | payer MEDICARE ==
[2019-01-28 16:27] LABS: Basophils % (A) 0 %; Eosinophils # (A) 0.2 k/uL (0-0.7); Eosinophils % (A) 1 %; HGB 16.5 gm/dL (13.0-17.5); Lymphocytes # (A) 1.1 k/uL (1.0-4.8); Lymphocytes % (A) 7 %; MCH 29.6 pg (25.0-35.0); MCHC 33.6 g/dL (31.0-37.0); MCV 87.9 fL (80.0-100.0); Mean Platelet Volume 6.8; Monocytes # (A) 0.9 k/uL (0-1.0); Monocytes % (A) 6 %; Neutrophils # (A) 12.4 k/uL (1.3-7.7); Neutrophils % (A) 84 %; Platelet Count 153 k/uL (150-450); RBC 5.57 m/uL (4.30-5.90); RDW 13.3 % (11.5-15.5); WBC 14.8 k/uL (3.8-10.6)
[2019-01-28 16:30] LABS: Appearance,Urine Clear (Clear); Bilirubin,Urine Negative (Negative); Blood,Urine Negative (Negative); Color,Urine Yellow; Glucose,Urine (UA) Trace (Negative); Ketones,Urine Negative (Negative); Leukocyte Esterase,Urine Negative (Negative); Mucus,Urine Moderate /hpf; Nitrite,Urine Negative (Negative); PH, Urine 5.5 (5.0-8.0); Protein,Urine 1+ (Negative); Specific Gravity,Urine 1.035 (1.001-1.035); WBC,Urine <1 /hpf (0-5)
[2019-01-28 16:37] LABS: Albumin 4.7 g/dL (3.5-5.0); Calcium 9.7 mg/dL (8.4-10.2); Potassium 4.5 mmol/L (3.5-5.1); Total Bilirubin 0.9 mg/dL (0.2-1.3); Total Protein 7.2 g/dL (6.3-8.2)
--- NOTE | 2019-01-28 17:03 | XR ---
EXAMINATION TYPE: XR KUB DATE OF EXAM: 01/28/2019 4:53 PM CLINICAL HISTORY: Right-sided abdominal pain TECHNIQUE: Upright and supine images of the abdomen were obtained. COMPARISON: None. FINDINGS: Air-fluid levels are seen within nondilated colon in the right mid abdomen. No pneumoperito neum is appreciated. Minimal left basilar subsegmental atelectasis is seen. Paucity of bowel gas in t he midabdomen and low pelvis may relate to ascites. There is a dextroscoliosis of the lumbar spine. N o suspicious calcifications in the abdomen or pelvis. IMPRESSION: Chronic air-fluid levels in the right mid abdomen can be seen in colonic malabsorption/di arrhea and colonic ileus. No dilated bowel to suggest obstruction. Overall posterior bowel gas throug hout can be seen in ascites. No pneumoperitoneum is seen.
--- NOTE | 2019-01-28 18:41 | CT ---
EXAMINATION TYPE: CT abdomen pelvis wo con DATE OF EXAM: 01/28/2019 COMPARISON: None HISTORY: RT side flank pain CT DLP: 556.3 mGycm Automated exposure control for dose reduction was used. TECHNIQUE: Helical acquisition of images was performed from the lung bases through the pelvis. FINDINGS: LUNG BASES: Bibasilar pleural-parenchymal scarring and scattered areas of subsegmental atelectasis ar e seen. Diaphragmatic rent is seen on the left. Heart is enlarged. Small hiatal hernia is present. LIVER/GB: Gallbladder is surgically absent. Unenhanced liver is of unremarkable morphology. PANCREAS: No significant abnormality is seen. SPLEEN: Small splenule is seen. Spleen is nonenlarged. ADRENALS: There is a low-density left adrenal gland nodule measuring 2.6 cm containing macroscopic fa t compatible with either a lipid rich adenoma or myelolipoma. Similarly on the right basilar density 1.5 cm lesion compatible with a lipid rich adenoma. KIDNEYS: No hydronephrosis or nephrolithiasis is seen. No urinary bladder calculi. FREE AIR: No free air is visualized ADENOPATHY: No greater than 1 cm short axis lymph node is appreciated in the abdomen or pelvis. REPRODUCTIVE ORGANS: Prostate gland appears slightly enlarged. OSSEOUS STRUCTURES: Degenerative disc disease of the visualized spine is present. BOWEL: Numerous sigmoid diverticula are seen without pericolonic fat stranding. Obstructing appendic olith is seen at the appendiceal orifice with surrounding periappendiceal fat stranding changes indic ative of acute appendicitis. OTHER: Extensive atherosclerosis is seen of the abdominal aorta and its branches. 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 IMPRESSION: 1. ACUTE UNCOMPLICATED APPENDICITIS SECONDARY TO AN OBSTRUCTING APPENDICOLITH AT THE APPENDICEAL ORIF ICE. FINDING WAS DISCUSSED WITH THE ORDERING ER PROVIDER AT 1837 ON 01/28/[address] DOMINGO. 2. SIGMOID DIVERTICULOSIS WITHOUT EVIDENCE OF ACUTE DIVERTICULITIS. 3. BENIGN ADRENAL GLAND ADENOMAS OR MYELOLIPOMAS.
[2019-01-28] MEDS ORDERED: metroNIDAZOLE-NS PMX 500 MG in SALINE 1 100ML.BAG IVPB STA (18:44)
[2019-01-28] MEDS ORDERED: PIPERACILLIN-TAZOBACTAM 3.375 GM in SODIUM CHLORIDE 0.9% 100 ML IVPB STA (19:01)
[2019-01-28] MEDS ORDERED: ACETAMINOPHEN TAB 325 MG TAB PO PRN (19:02)
[2019-01-28] MEDS ORDERED: NALOXONE 0.4 MG/ML 1 ML VIAL IV PRN (19:02)
[2019-01-28] MEDS ORDERED: ONDANSETRON 4 MG/2 ML VIAL IVP PRN (19:02)
--- NOTE | 2019-01-28 19:15 | ED ---
Abdominal Pain HPI - General Source: patient Mode of arrival: ambulatory Limitations: no limitations <Renzo Blanca - Last Filed: 01/28/19 19:06> <Eleazar Arcos - Last Filed: 01/29/19 08:54> - General Chief Complaint: Abdominal Pain Stated Complaint: Rt side pain Time Seen by Provider: 01/28/19 15:45 - History of Present Illness Initial Comments: Patient is a 73-year-old male presents emergency Department with a chief complaint of right flank pain. Patient reports the pain started yesterday and has increasing severity. Patient reports the pain is colicky nature and rates it an 7. Patient denies fever, nausea, vomiting, diarrhea. Patient reports muscle pain is localized to the right lower quadrant and does not radiate anywhere. Patient reports the pain is not related to food intake. Patient reports a cholecystectomy approximately one year ago. Patient denies abdominal bloating, urinary or obstructive symptoms. Patient denies taking any medication to the pain. (Renzo Blanca) - Related Data Home Medications Medication Instructions Recorded Confirmed Simvastatin [Zocor] 20 mg PO HS 11/19/16 01/28/19 amLODIPine BESYLATE/BENAZEPRIL 1 cap PO DAILY 11/19/16 01/28/19 [Lotrel 10-20 MG] sitaGLIPtin [Januvia] 100 mg PO DAILY 11/19/16 01/28/19 Tadalafil [Cialis] 5 mg PO DAILY 11/24/16 01/28/19 Timolol 0.5% Ophth Soln [Timoptic 1 drop BOTH EYES DAILY 01/28/19 01/28/19 0.5% Ophth Soln] Allergies Allergy/AdvReac Type Severity Reaction Status Date / Time No Known Allergies Allergy Verified 01/28/19 19:25 Review of Systems ROS Other: All systems not noted in ROS Statement are negative. <Renzo Blanca - Last Filed: 01/28/19 19:06> ROS Other: All systems not noted in ROS Statement are negative. <Eleazar Arcos - Last Filed: 01/29/19 08:54> ROS Statement: Those systems with pertinent positive or pertinent negative responses have been documented in the HPI. Past Medical History Past Medical History: Diabetes Mellitus, GERD/Reflux, Hyperlipidemia, Hypertension Additional Past Medical History / Comment(s): "borderline diabetic", History of Any Multi-Drug Resistant Organisms: None Reported Past Surgical History: Cholecystectomy, Hernia Repair Additional Past Surgical History / Comment(s): hernia surgery x 3, Past Anesthesia/Blood Transfusion Reactions: No Reported Reaction Past Psychological History: No Psychological Hx Reported Smoking Status: Former smoker Past Alcohol Use History: None Reported Past Drug Use History: None Reported - Past Family History Mother Family Medical History: Cancer <Renzo Blanca Last Filed: 01/28/19 19:06> General Exam Limitations: no limitations General appearance: alert, in no apparent distress Head exam: Present: atraumatic, normocephalic, normal inspection Eye exam: Present: normal appearance, PERRL, EOMI Pupils: Present: normal accommodation ENT exam: Present: normal exam, normal oropharynx, mucous membranes moist, TM's normal bilaterally, normal external ear exam Neck exam: Present: normal inspection Respiratory exam: Present: normal lung sounds bilaterally Cardiovascular Exam: Present: regular rate, normal rhythm, normal heart sounds GI/Abdominal exam: Present: soft, tenderness (Right lower quadrant tenderness. Positive McBurney point tenderness). Absent: guarding, rebound, other (Negative psoas and Rovsing sign) Extremities exam: Present: normal inspection, full ROM Back exam: Present: normal inspection, full ROM, CVA tenderness (R). Absent: CVA tenderness (L) Neurological exam: Present: alert, oriented X3 Psychiatric exam: Present: normal affect, normal mood Skin exam: Present: warm, intact, normal color <Renzo Blanca Last Filed: 01/28/19 19:06> Course Vital Signs 01/28/19 01/28/19 01/28/19 15:38 17:40 19:51 Temperature 98.8 F 99.1 F Pulse Rate 61 66 68 Respiratory 18 18 16 Rate Blood Pressure 138/77 152/81 154/81 O2 Sat by Pulse 96 94 L 97 Oximetry Medical Decision Making - Lab Data Result diagrams: 01/28/19 16:15 01/28/19 16:15 <Renzo Blanca Last Filed: 01/28/19 19:06> - Lab Data Result diagrams: 01/29/19 06:40 01/28/19 16:15 <Eleazar Arcos - Last Filed: 01/29/19 08:54> - Medical Decision Making Patient is 73-year-old male presenting to the emergency department for right lower quadrant pain. CT of the abdomen is suggestive of an acute on, acute appendicitis secondary to an obstruction of fecalith at the appendiceal orifice. CT also positive for diverticulosis. Labs obtained are positive for leukocytosis. Patient was administered Zosyn and fluids. Patient will be admitted for inpatient treatment. patient has previously established care with Dr. Perkins for surgical treatment. Patient will be admitted for surgical treatment. (Renzo Blanca) 73-year-old male, patient reevaluated by myself, resting comfortably, he has minimal abdominal tenderness in the right lower quadrant. CT does confirm acute non-complicated appendicitis. I discussed case with Dr. Avitia, who will admit this patient. Patient placed on antibiotics. (Eleazar Arcos) - Lab Data Lab Results 01/28/19 01/28/19 Range/Units 16:15 16:15 WBC 14.8 H (3.8-10.6) k/uL RBC 5.57 (4.30-5.90) m/uL Hgb 16.5 (13.0-17.5) gm/dL Hct 49.0 (39.0-53.0) % MCV 87.9 (80.0-100.0) fL MCH 29.6 (25.0-35.0) pg MCHC 33.6 (31.0-37.0) g/dL RDW 13.3 (11.5-15.5) % Plt Count 153 (150-450) k/uL Neutrophils % 84 % Lymphocytes % 7 % Monocytes % 6 % Eosinophils % 1 % Basophils % 0 % Neutrophils # 12.4 H (1.3-7.7) k/uL Lymphocytes # 1.1 (1.0-4.8) k/uL Monocytes # 0.9 (0-1.0) k/uL Eosinophils # 0.2 (0-0.7) k/uL Basophils # 0.0 (0-0.2) k/uL Sodium 141 (137-145) mmol/L Potassium 4.5 (3.5-5.1) mmol/L Chloride 105 (98-107) mmol/L Carbon Dioxide 26 (22-30) mmol/L Anion Gap 10 mmol/L BUN 16 (9-20) mg/dL Creatinine 1.11 (0.66-1.25) mg/dL Est GFR (CKD-EPI)AfAm 75 (>60 ml/min/1.73 sqM) Est GFR (CKD-EPI)NonAf 65 (>60 ml/min/1.73 sqM) Glucose 109 H (74-99) mg/dL Calcium 9.7 (8.4-10.2) mg/dL Total Bilirubin 0.9 (0.2-1.3) mg/dL AST 20 (17-59) U/L ALT 17 L (21-72) U/L Alkaline Phosphatase 70 (38-126) U/L Total Protein 7.2 (6.3-8.2) g/dL Albumin 4.7 (3.5-5.0) g/dL Amylase 45 (30-110) U/L Lipase 182 (23-300) U/L Disposition Is patient prescribed a controlled substance at d/c from ED?: No Time of Disposition: 19:14 <Renzo Blanca - Last Filed: 01/28/19 19:06> <Eleazar Arcos - Last Filed: 01/29/19 08:54> Clinical Impression: Acute appendicitis Disposition: ADMITTED IP TO THIS HOSP Condition: Stable
[2019-01-28] MEDS: HYDROmorphone 0.5 MG/0.5 ML SYRINGE IVP PRN (19:53)
[2019-01-28] MEDS ORDERED: ceFAZolin IN SWFI 2 GM/20 ML SYRINGE IVP ONE (22:00)
[2019-01-28] MEDS ORDERED: ENOXAPARIN 30 MG/0.3 ML SYRINGE SQ SCH (22:00)
[2019-01-29] MEDS: PIPERACILLIN-TAZOBACTAM 3.375 GM in SODIUM CHLORIDE 0.9% 100 ML IVPB SCH ×4 (00:03→23:31)
[2019-01-29] MEDS: HYDROmorphone 0.5 MG/0.5 ML SYRINGE IVP PRN ×4 (00:03→23:31)
[2019-01-29] MEDS: 0.9% NACL WITH KCL 20 MEQ/L 1,000 ML IV SCH ×4 (05:45→10:17)
[2019-01-29 07:13] LABS: Glucose,Whole Blood 129 mg/dL (75-99)
[2019-01-29] MEDS: INSULIN ASPART (NovoLOG) 100 UNIT/ML VIAL SQ SCH ×4 (07:40→20:54)
--- NOTE | 2019-01-29 07:58 | P.GSHP ---
History of Present Illness H&P Date: 01/29/19 CHIEF COMPLAINT: Right lower quadrant abdominal pain with appendicitis for over 1 day. HISTORY OF PRESENT ILLNESS: The patient is a previously healthy 73-year-old male who presents with 1.5 day history of periumbilical with right lower quadrant abdominal pain that started yesterday. No reports of prior abdominal pain. He states the intensity of the pain is moderate to severe. He presented with CT abdomen and pelvis consistent with dilated appendix suspicious for appendicitis hence general surgery admission. PAST MEDICAL HISTORY: See list. PAST SURGICAL HISTORY: See list. CURRENT MEDICATIONS: See list. ALLERGIES: See list. SOCIAL HISTORY: No active tobacco use. FAMILY HISTORY: Denies Crohns disease and ulcerative colitis. REVIEW OF ORGAN SYSTEMS: CONSTITUTIONAL: Has current fever. No chills. Denies recent weight loss. HEENT: Denies any trouble with hearing or nosebleeds. No difficulty swallowing. Has glaucoma. LYMPHATIC: The patient denies any lumps and bumps around the neck. ENDOCRINE: Denies any thyroid disorders. Denies any blood sugar glucose intol erance. RESPIRATORY: Denies shortness of breath including chronic cough. CARDIOVASCULAR: Denies history of chest pain with exertion. GASTROINTESTINAL: Denies regurgitation of bile at night as well as intermittent nausea. No blood in stools. GENITOURINARY: Denies any blood in urine or increased urinary frequency. MUSCULOSKELETAL: Denies current joint arthritis. NEUROLOGIC: Denies any numbness or tingling along the distal extremities. No seizure disorders or headaches. PSYCHIATRIC: Denies any depression or suicidal ideation. HEMATOLOGIC: Denies any abnormal bleeding or bruising. PHYSICAL EXAMINATION: GENERAL: Well developed and in no acute distress. Pleasant. HEENT: No sclera icterus. Extraocular movements grossly intact. Moist buccal mucosa. Head is atraumatic, normocephalic. Hears conversational speech. No nasal drainage. NECK: Supple without lymphadenopathy. No JV distention. CHEST: Non-labored respirations and equal bilateral excursions. CARDIOVASCULAR: Regular rate and rhythm. Palpable 2+ radial pulses. ABDOMEN: Soft, tender at the right lower quadrant MUSCULOSKELETAL: No clubbing, cyanosis or edema. NEUROLOGIC: No focal or lateralizing signs. PSYCH: Appropriate affect. Alert and oriented to person, place and time. SKIN: Well perfused. Good skin turgor. LABS: Reviewed STUDIES: CT of the abdomen and pelvis independently reviewed with findings consistent with appendicitis. ASSESSMENT: 1. Right lower quadrant pain. 2. Appendicitis. 3. Leukocytosis. PLAN: 1. I have discussed benefits and risks of laparoscopic appendectomy. 2. Bilateral SCDs. 3. Antibiotics. 4. DVT prophylaxis with heparin. 5. GI prophylaxis. Thank you very much for allowing me to participate in the care of your patient. Past Medical History Past Medical History: Diabetes Mellitus, GERD/Reflux, Hyperlipidemia, H ypertension Additional Past Medical History / Comment(s): "borderline diabetic", History of Any Multi-Drug Resistant Organisms: None Reported Past Surgical History: Cholecystectomy, Hernia Repair Additional Past Surgical History / Comment(s): hernia surgery x 3, Past Anesthesia/Blood Transfusion Reactions: No Reported Reaction Past Psychological History: No Psychological Hx Reported Smoking Status: Former smoker Past Alcohol Use History: None Reported Additional Past Alcohol Use History / Comment(s): quit smoking age 28's. smoked for 4-5 yrs, < 1 PPD Past Drug Use History: None Reported - Past Family History Mother Family Medical History: Cancer Medications and Allergies Home Medications Medication Instructions Recorded Confirmed Type Simvastatin [Zocor] 20 mg PO HS 11/19/16 01/28/19 History amLODIPine BESYLATE/BENAZEPRIL 1 cap PO DAILY 11/19/16 01/28/19 History [Lotrel 10-20 MG] sitaGLIPtin [Januvia] 100 mg PO DAILY 11/19/16 01/28/19 History Tadalafil [Cialis] 5 mg PO DAILY 11/24/16 01/28/19 History Timolol 0.5% Ophth Soln [Timoptic 1 drop BOTH EYES DAILY 01/28/19 01/28/19 History 0.5% Ophth Soln] Allergies Allergy/AdvReac Type Severity Reaction Status Date / Time No Known Allergies Allergy Verified 01/28/19 19:25 Surgical - Exam Vital Signs Temp Pulse Resp BP Pulse Ox 98.8 F 61 18 138/77 96 01/28/19 15:38 01/28/19 15:38 01/28/19 15:38 01/28/19 15:38 01/28/19 15:38 Results - Labs 01/28/19 16:15 01/28/19 16:15 Abnormal Lab Results - Last 24 Hours (Table) 01/28/19 01/28/1901/28/19 Range/Units 16:15 16:15 Unknown WBC 14.8 H (3.8-10.6) k/uL Neutrophils # 12.4 H (1.3-7.7) k/uL Glucose 109 H (74-99) mg/dL POC Glucose (mg/dL) (75-99) mg/dL ALT 17 L (21-72) U/L Urine Protein 1+ H (Negative) Urine Glucose (UA) Trace H (Negative) Urine Mucus Moderate H (None) /hpf 01/29/19 Range/Units 07:01 WBC (3.8-10.6) k/uL Neutrophils # (1.3-7.7) k/uL Glucose (74-99) mg/dL POC Glucose (mg/dL) 129 H (75-99) mg/dL ALT (21-72) U/L Urine Protein (Negative) Urine Glucose (UA) (Negative) Urine Mucus (None) /hpf Diabetes panel 01/28/19 Range/Units 16:15 Sodium 141 (137-145) mmol/L Potassium 4.5 (3.5-5.1) mmol/L Chloride 105 (98-107) mmol/L Carbon Dioxide 26 (22-30) mmol/L BUN 16 (9-20) mg/dL Creatinine 1.11 (0.66-1.25) mg/dL Glucose 109 H (74-99) mg/dL Calcium 9.7 (8.4-10.2) mg/dL AST 20 (17-59) U/L ALT 17 L (21-72) U/L Alkaline Phosphatase 70 (38-126) U/L Total Protein 7.2 (6.3-8.2) g/dL Albumin 4.7 (3.5-5.0) g/dL Calcium panel 01/28/19 Range/Units 16:15 Calcium 9.7 (8.4-10.2) mg/dL Albumin 4.7 (3.5-5.0) g/dL Pituitary panel 01/28/19 Range/Units 16:15 Sodium 141 (137-145) mmol/L Potassium 4.5 (3.5-5.1) mmol/L Chloride 105 (98-107) mmol/L Carbon Dioxide 26 (22-30) mmol/L BUN 16 (9-20) mg/dL Creatinine 1.11 (0.66-1.25) mg/dL Glucose 109 H (74-99) mg/dL Calcium 9.7 (8.4-10.2) mg/dL Adrenal panel 01/28/19 Range/Units 16:15 Sodium 141 (137-145) mmol/L Potassium 4.5 (3.5-5.1) mmol/L Chloride 105 (98-107) mmol/L Carbon Dioxide 26 (22-30) mmol/L BUN 16 (9-20) mg/dL Creatinine 1.11 (0.66-1.25) mg/dL Glucose 109 H (74-99) mg/dL Calcium 9.7 (8.4-10.2) mg/dL Total Bilirubin 0.9 (0.2-1.3) mg/dL AST 20 (17-59) U/L ALT 17 L (21-72) U/L Alkaline Phosphatase 70 (38-126) U/L Total Protein 7.2 (6.3-8.2) g/dL Albumin 4.7 (3.5-5.0) g/dL
[2019-01-29] MEDS ORDERED: HEPARIN SODIUM,PORCINE 5,000 UNIT/ML 1 ML VIAL SQ STA (07:59)
[2019-01-29 08:09] LABS: Basophils % (A) 0 %; Eosinophils % (A) 0 %; HCT 46.7 % (39.0-53.0); HGB 15.2 gm/dL (13.0-17.5); Lymphocytes # (A) 0.6 k/uL (1.0-4.8); Lymphocytes % (A) 5 %; MCH 29.1 pg (25.0-35.0); MCHC 32.4 g/dL (31.0-37.0); MCV 89.9 fL (80.0-100.0); Mean Platelet Volume 7.8; Monocytes # (A) 0.8 k/uL (0-1.0); Monocytes % (A) 6 %; Neutrophils # (A) 12.1 k/uL (1.3-7.7); Neutrophils % (A) 88 %; Platelet Count 128 k/uL (150-450); RDW 14.5 % (11.5-15.5); WBC 13.8 k/uL (3.8-10.6)
[2019-01-29] MEDS ORDERED: GLYCOPYRROLATE 0.2 MG/ML 2 ML VIAL ONE (08:10)
[2019-01-29] MEDS ORDERED: PROPOFOL 10 MG/ML 20 ML VIAL IV ONE (08:10)
[2019-01-29] MEDS ORDERED: LIDOCAINE 1% INJ 10MG/ML (20 ML MDV) ONE (08:10)
[2019-01-29] MEDS ORDERED: MIDAZOLAM 2 MG/2 ML VIAL ONE (08:10)
[2019-01-29] MEDS ORDERED: ROCURONIUM BROMIDE 10 MG/ML 10 ML VIAL IV ONE (08:10)
[2019-01-29] MEDS ORDERED: ePHEDrine SULFATE/0.9% NACL/PF 50 MG/5 ML SYRINGE IV ONE (08:10)
[2019-01-29] MEDS ORDERED: SODIUM CHLORIDE 0.9% 50 ML with ceFAZolin 2,000 MG IV ONE ×2 (08:10)
[2019-01-29] MEDS ORDERED: NEOSTIGMINE 1 MG/ML 10 ML VIAL ONE (08:10)
[2019-01-29] MEDS ORDERED: fentaNYL (PF) 50 MCG/ML 2 ML AMP ONE (08:10)
[2019-01-29] MEDS ORDERED: ACETAMINOPHEN IV (For NPO) 1,000 MG/100 ML VIAL ONE (08:10)
[2019-01-29] MEDS ORDERED: SUCCINYLCHOLINE CHLORIDE 100 MG/5 ML SYR IV ONE (08:10)
[2019-01-29] MEDS ORDERED: SODIUM CHLORIDE 0.9% 1,000 ML IV ONE (08:10)
[2019-01-29] MEDS ORDERED: SODIUM CHLORIDE 0.9% 500 ML 500 ML IV ONE (08:10)
[2019-01-29] MEDS ORDERED: LIDOCAINE 1%-EPI 1:100,000 20 ML VIAL SQ ONE (08:46)
--- NOTE | 2019-01-29 09:42 | P.OP ---
Date of Procedure: 01/29/19 Description of Procedure: SURGEON: EVGENY DALEY MD BETTING AGENCY MANAGER: None. PREOPERATIVE DIAGNOSES: 1. Acute appendicitis with localized peritonitis, right lower quadrant 2. Diabetes type 2, [id number] 3. Hypertensive heart disease 4. Hyperlipidemia 5. Glaucoma 6. Fevers 7. Sepsis secondary to acute appendicitis POSTOPERATIVE DIAGNOSES: 1. Acute appendicitis with localized peritonitis, right lower quadrant 2. Diabetes type 2, [id number] 3. Hypertensive heart disease 4. Hyperlipidemia 5. Glaucoma 6. Fevers 7. Sepsis secondary to acute appendicitis, severe periappendicitis with necrosis PROCEDURES PERFORMED: 1. Laparoscopic appendectomy. ANESTHESIA: General with local ESTIMATED BLOOD LOSS: 5 mL. SPECIMENS REMOVED: Appendix. COMPLICATIONS: None. Condition: stable Disposition: floor OPERATIVE FINDINGS: 1. Acute appendicitis with severe periappendicitis and necrosis involving entire appendix 2. Unremarkable small bowel and terminal ileum. 3. The colon was unremarkable 4. Omentum adhesion to previous umbilical hernia repair 5. Severe inflammation including of the appendix was adhered to the right lower abdominal wall consistent with his peritonitis. INDICATIONS: The patient is a 73-year-old male who presents with acute appendicitis. Benefits and risks, including possibility of open technique were described at length. Informed consent was obtained. DESCRIPTION OR PROCEDURE: Patient was brought to the operating room, laid in supine position. After general induction, the abdomen was prepped and draped in standard sterile fashion. Prior to incision, a timeout protocol was confirmed with surgical team regarding patient's name including procedure to be performed. Preoperative medications were given intraoperatively. Additionally, bilateral SCDs were placed. A left upper quadrant incision was made after localizing the skin with anesthetic. A 0 degree 5 mm laparoscopic trocar entry was performed and entered into the peritoneal cavity. The abdomen was insufflated to 15 mmHg of pressure, which he tolerated well. Diagnostic laparoscopy demonstrated no injury to bowel, viscera or mesentery. A 5 mm port was placed just above the pubis. A separate 12 mm port was placed at the left lateral abdominal wall under direct visualization. The patient was placed in Trendelenburg position with the right side up. A systematic view within the abdominal cavity was started with the small bowel which was unremarkable. Severe inflammation including of the appendix was adhered to the right lower abdominal wall consistent with his peritonitis. The base of the cecum was without inflammation. The entire appendix was necrosis with periappendicitis without rupture. A 60 mm Endo JHONY echelon stapler was fired using a mendoza vascular load. A staple load was used for complete division of the base of the appendix. Excellent hemostasis was confirmed at staple line. The specimen was removed from the abdominal cavity with a Endo Catch bag through the 12 mm trocar. A Hugo Whitney and 0 Vicryl was used to close the defect of the 12 mm trocar. All instruments and pneumoperitoneum were evacuated from the abdominal cavity. A total of 20 mL of local anesthetic was infiltrated in all wounds for postop analgesia. Liquid glue was applied to the skin after reapproximating the incisions with 4-0 Monocryl as described. Optifoam was placed over the 12 mm port site. The incisions and skin was cleansed using dilute hydroperoxide. At the end of the procedure, needle, sponge, and instrument count was verified correct by surgical clinical reviewer. The patient had tolerated the procedure well, was taken to the postanesthesia care unit in stable condition. Intraoperative findings were reviewed with the patient's family who were pleased with the level of care.
[2019-01-29 09:45] LABS: Glucose,Whole Blood 144 mg/dL (75-99)
[2019-01-29] MEDS: KETOROLAC 30 MG/ML 1 ML VIAL IVP SCH ×3 (11:05→21:54)
[2019-01-29] MEDS: TAMSULOSIN 0.4 MG CAP.ER.24H PO SCH (11:06)
[2019-01-29 11:40] LABS: Glucose,Whole Blood 151 mg/dL (75-99)
[2019-01-29] MEDS: SIMETHICONE 40 MG/0.6 ML DROPS 2,000 MG/30 ML BOTTLE PO SCH ×3 (12:42→21:54)
--- NOTE | 2019-01-29 13:29 | P.PN ---
Progress Note - Text Progress Note Date: 01/29/19 Family is at bedside. He is waiting to ambulate. Tentative discharge pending tolerating diet and postoperative recovery.
--- NOTE | 2019-01-29 14:57 | P.CONS ---
History of Present Illness - Reason for Consult Consult date: 01/29/19 Medical management of hypertension and other medical problems - History of Present Illness Pt. is a 73-year-old male with a known history of hypertension, diabetes type 2 [id number], GERD and hyperlipidemia came to ER with complaints of abdominal pain mainly right lower quadrant and extending up to periumbilical area for the past 1 day prior to admission. Patient came to ER with worsening pain. Denied any fever or chills. Patient was nauseated. No episodes of vomiting. Denied any chest pain or shortness of breath. Denied any recent illnesses. No dysuria or hematuria. CT of the abdomen pelvis showed acute uncomplicated appendicitis secondary to an obstructing appendicolith at the appendiceal orifice. Sigmoid about 2 glasses without evidence of acute epididymitis. Benign denied any, are [place] lipomas. Patient is status post laparoscopic cholecystectomy. Patient was hypoxic postoperatively currently requiring 5 L oxygen via nausea cannula.. WBC 14.8 on admission. Review of Systems Constitutional: Patient denies any fever or chills . No generalized weakness or weight loss. Abdomen: Patient does have nausea and abdominal pain. No vomiting or diarrhea.. Cardiovascular: Patient denies any chest pain or short of breath no palpitati ons. Respiratory: patient denied any cough is from production. No shortness of breath Neurologic: Patient denied any numbness or tingling headache. Musculoskeletal: Patient denies any complaints of joint swelling or deformity. Skin: Negative Psychiatric: Negative Endocrine: No heat or cold intolerance. No recent weight gain. Genitourinary: No dysuria or hematuria. All other 14 point ROS negative except the above Past Medical History Past Medical History: Diabetes Mellitus, GERD/Reflux, Hyperlipidemia, Hypertension Additional Past Medical History / Comment(s): "borderline diabetic", History of Any Multi-Drug Resistant Organisms: None Reported Past Surgical History: Cholecystectomy, Hernia Repair Additional Past Surgical History / Comment(s): hernia surgery x 3, Past Anesthesia/Blood Transfusion Reactions: No Reported Reaction Past Psychological History: No Psychological Hx Reported Smoking Status: Former smoker Past Alcohol Use History: None Reported Additional Past Alcohol Use History / Comment(s): quit smoking age 28's. smoked for 4-5 yrs, < 1 PPD Past Drug Use History: None Reported - Past Family History Mother Family Medical History: Cancer Medications and Allergies Home Medications Medication Instructions Recorded Confirmed Type Simvastatin [Zocor] 20 mg PO HS 11/19/16 01/28/19 History amLODIPine BESYLATE/BENAZEPRIL 1 cap PO DAILY 11/19/16 01/28/19 History [Lotrel 10-20 MG] sitaGLIPtin [Januvia] 100 mg PO DAILY 11/19/16 01/28/19 History Tadalafil [Cialis] 5 mg PO DAILY 11/24/16 01/28/19 History Timolol 0.5% Ophth Soln [Timoptic 1 drop BOTH EYES DAILY 01/28/19 01/28/19 History 0.5% Ophth Soln] Ibuprofen [Motrin] 600 mg PO Q8HR PRN #30 tab 01/29/19 Rx Allergies Allergy/AdvReac Type Severity Reaction Status Date / Time No Known Allergies Allergy Verified 01/28/19 19:25 Physical Exam Vitals: Vital Signs Temp Pulse Pulse Pulse Resp BP BP 01/29/19 10:15 75 16 148/62 01/29/19 10:00 77 16 150/68 01/29/19 09:43 79 18 168/74 01/29/19 09:28 100 F H 71 14 160/73 01/29/19 07:55 100.4 F H 89 18 180/84 01/29/19 07:12 98.4 F 64 18 155/54 01/29/19 01:06 98.7 F 62 18 148/73 01/28/19 20:57 98.6 F 73 18 165/76 01/28/19 19:51 99.1 F 68 16 154/81 01/28/19 17:40 66 18 152/81 01/28/19 15:38 98.8 F 61 18 138/77 Pulse Ox 01/29/19 10:15 90 L 01/29/19 10:00 90 L 01/29/19 09:43 91 L 01/29/19 09:28 90 L 01/29/19 07:55 87 L 01/29/19 07:12 90 L 01/29/19 01:06 91 L 01/28/19 20:57 94 L 01/28/19 19:51 97 01/28/19 17:40 94 L 01/28/19 15:38 96 Intake and Output 01/28/19 01/29/19 01/29/19 22:59 06:59 14:59 Intake Total 150 750 800 Output Total 5 Balance 150 750 795 Intake: IV 800 Intake, IV Titration 750 Amount 0.9% NaCl with KCl 20 Meq 750 /l 1,000 ml @ 75 mls/hr IV .[id number] MARLI Rx#: [id number] Oral 150 Output: Estimated Blood Loss 5 Other: Voiding Method Toilet Toilet # Voids 1 1 Weight 77.111 kg PHYSICAL EXAMINATION: Patient is lying in the bed comfortably, no acute distress, awake alert and oriented but drowsy.. HEENT: Normocephalic. Neck is supple. Pupils reactive. Nostrils clear. Oral cavity is moist. Ears reveal no drainage. Neck reveals no JVD, carotid bruits, or thyromegaly. CHEST EXAMINATION: Trachea is central. Symmetrical expansion. Bibasilar d iminished air entry. Otherwise Lung osborne clear to auscultation and percussion. CARDIAC: Normal S1, S2 with no gallops. No murmurs ABDOMEN: Soft. Distended. Mild tenderness of the surgical site. Bowel sounds sluggish. No organomegaly. No abdominal bruits. Extremities: reveal no edema. No clubbing or cyanosis Neurologically awake, alert, oriented x3 with well-coordinated movements. No focal deficits noted Skin: No rash or skin lesions. Psychiatric: Coperative. Nonsuicidal Musculoskeletal: No joint swelling or deformity. Normal range of motion. Results CBC & Chem 7: 01/29/19 06:40 01/28/19 16:15 Labs: Abnormal Lab Results - Last 24 Hours (Table) 01/28/19 01/28/19 01/28/19 Range/Units 16:15 16:15 Unknown WBC 14.8 H (3.8-10.6) k/uL Plt Count (150-450) k/uL Neutrophils # 12.4 H (1.3-7.7) k/uL Lymphocytes # (1.0-4.8) k/uL Glucose 109 H (74-99) mg/dL POC Glucose (mg/dL) (75-99) mg/dL ALT 17 L (21-72) U/L Urine Protein 1+ H (Negative) Urine Glucose (UA) Trace H (Negative) Urine Mucus Moderate H (None) /hpf 01/29/19 01/29/19 01/29/19 Range/Units 06:40 07:01 09:35 WBC 13.8 H (3.8-10.6) k/uL Plt Count 128 L (150-450) k/uL Neutrophils # 12.1 H (1.3-7.7) k/uL Lymphocytes # 0.6 L (1.0-4.8) k/uL Glucose (74-99) mg/dL POC Glucose (mg/dL) 129 H 144 H (75-99) mg/dL ALT (21-72) U/L Urine Protein (Negative) Urine Glucose (UA) (Negative) Urine Mucus (None) /hpf 01/29/19 Range/Units 11:39 WBC (3.8-10.6) k/uL Plt Count (150-450) k/uL Neutrophils # (1.3-7.7) k/uL Lymphocytes # (1.0-4.8) k/uL Glucose (74-99) mg/dL POC Glucose (mg/dL) 151 H (75-99) mg/dL ALT (21-72) U/L Urine Protein (Negative) Urine Glucose (UA) (Negative) Urine Mucus (None) /hpf Assessment and Plan Assessment: Abdominal pain secondary to acute uncomplicated appendicitis. Status post laparoscopic appendectomy. Hypoxia likely due to poor inspiratory effort with shallow breathing. Continue with the breathing exercises and incentive spirometry. Titrate down oxygen slowly. Hypertension. Controlled now GERD Hyperlipidemia Diabetes type 2 Previous history of smoking DVT prophylaxis Plan: Patient will be continued on IV hydration until better tolerates his oral diet. Oxygen therapy. Incentive spirometry and encourage deep breathing exercises. Patient is currently on antibiotics in the form of Zosyn empirically. Patient does take amlodipine at home. We will hold blood pressure medications since her blood pressure is not elevated now. Can be started back up on discharge. Insulin sliding scale for better blood sugar control. Started back on home medications. Further recommendations based on the clinical course. Thank you for your consult. Time with Patient: Greater than 30
[2019-01-29] MEDS ORDERED: IBUPROFEN 600 MG TAB PO SCH (16:00)
[2019-01-29 17:03] LABS: Glucose,Whole Blood 150 mg/dL (75-99)
[2019-01-29] MEDS: SODIUM CHLORIDE 0.9% 1,000 ML IV SCH (17:41)
[2019-01-29 20:31] LABS: Glucose,Whole Blood 196 mg/dL (75-99)
[2019-01-29] MEDS: TIMOLOL 0.5% OPHTH DROPS 5 ML BTL BOTH EYES SCH (20:54)
[2019-01-30] MEDS: KETOROLAC 30 MG/ML 1 ML VIAL IVP SCH ×2 (03:48→08:57)
[2019-01-30] MEDS: SODIUM CHLORIDE 0.9% 1,000 ML IV SCH (05:26)
[2019-01-30 07:05] LABS: Glucose,Whole Blood 123 mg/dL (75-99)
[2019-01-30] MEDS: INSULIN ASPART (NovoLOG) 100 UNIT/ML VIAL SQ SCH ×2 (07:18→11:55)
[2019-01-30 07:29] VITALS: BP 146/70; PULSE 62; RESP 16; TEMP 98.1
[2019-01-30] MEDS: TAMSULOSIN 0.4 MG CAP.ER.24H PO SCH (08:51)
[2019-01-30] MEDS: PIPERACILLIN-TAZOBACTAM 3.375 GM in SODIUM CHLORIDE 0.9% 100 ML IVPB SCH (08:51)
[2019-01-30] MEDS: SIMETHICONE 40 MG/0.6 ML DROPS 2,000 MG/30 ML BOTTLE PO SCH (08:52)
[2019-01-30] MEDS ORDERED: SODIUM CHLORIDE 0.9% 1,000 ML IV ONE (08:54)
[2019-01-30] MEDS: TIMOLOL 0.5% OPHTH DROPS 5 ML BTL BOTH EYES SCH (09:05)
[2019-01-30 11:39] LABS: Glucose,Whole Blood 127 mg/dL (75-99)
[2019-01-30 11:56] LABS: Basophils % (A) 0 %; Eosinophils # (A) 0.1 k/uL (0-0.7); Eosinophils % (A) 1 %; HCT 41.9 % (39.0-53.0); HGB 13.8 gm/dL (13.0-17.5); Lymphocytes # (A) 0.7 k/uL (1.0-4.8); Lymphocytes % (A) 7 %; MCH 29.8 pg (25.0-35.0); MCV 90.2 fL (80.0-100.0); Mean Platelet Volume 7.2; Monocytes # (A) 0.4 k/uL (0-1.0); Monocytes % (A) 4 %; Neutrophils # (A) 9.6 k/uL (1.3-7.7); Neutrophils % (A) 87 %; Platelet Count 119 k/uL (150-450); RBC 4.64 m/uL (4.30-5.90); RDW 13.7 % (11.5-15.5)
[2019-01-30 12:12] LABS: Calcium 8.7 mg/dL (8.4-10.2); Potassium 3.9 mmol/L (3.5-5.1)
--- NOTE | 2019-01-30 12:12 | P.DS ---
Providers Date of admission: 01/29/19 09:34 Expected date of discharge: 01/30/19 Attending physician: Kiana Avitia Consults: 01/28/19 19:02 Consult Physician Routine Consulting Provider: Sonia Jalloh Consult Reason/Comments: Medical management, acute appendicitis Do you want consulting provider notified?: Yes Primary care physician: [facility] Course: 73-year-old male who underwent laparoscopic appendectomy with Dr. Avitia on 01/29/2019. Patient is doing well postoperatively without any immediate complications. He is tolerating diet. He is passing flatus. Vital signs have been stable. He is stable for discharge home today. Please see EMR for further hospital course details. Discharge diagnosis 1. Acute appendicitis with localized peritonitis, right lower quadrant 2. Diabetes type 2, [id number] 3. Hypertensive heart disease 4. Hyperlipidemia 5. Glaucoma 6. Fevers 7. Sepsis secondary to acute appendicitis, severe periappendicitis with necrosis Nurse practitioner note has been reviewed by physician. Signing provider agrees with the documented findings, assessment, and plan of care. Patient Condition at Discharge: Stable Plan - Discharge Summary Discharge Rx Participant: Yes New Discharge Prescriptions: New Ibuprofen [Motrin] 600 mg PO Q8HR PRN #30 tab PRN Reason: Pain Continue sitaGLIPtin [Januvia] 100 mg PO DAILY amLODIPine BESYLATE/BENAZEPRIL [Lotrel 10-20 MG] 1 cap PO DAILY Simvastatin [Zocor] 20 mg PO HS Tadalafil [Cialis] 5 mg PO DAILY Timolol 0.5% Ophth Soln [Timoptic 0.5% Ophth Soln] 1 drop BOTH EYES DAILY Discharge Medication List Simvastatin [Zocor] 20 mg PO HS 11/19/16 [History] amLODIPine BESYLATE/BENAZEPRIL [Lotrel 10-20 MG] 1 cap PO DAILY 11/19/16 [History] sitaGLIPtin [Januvia] 100 mg PO DAILY 11/19/16 [History] Tadalafil [Cialis] 5 mg PO DAILY 11/24/16 [History] Timolol 0.5% Ophth Soln [Timoptic 0.5% Ophth Soln] 1 drop BOTH EYES DAILY 01/28/19 [History] Ibuprofen [Motrin] 600 mg PO Q8HR PRN #30 tab 01/29/19 [Rx] Follow up Appointment(s)/Referral(s): Kiana Avitia MD [STAFF PHYSICIAN] - 02/07/19 4:45 pm () Anton Perez DO [Primary Care Provider] - 02/01/19 3:30 pm (With MATTRESS INSPECTOR ) Patient Instructions/Handouts: Abdominal Pain (ED), Laparoscopic Appendectomy (DC) Activity/Diet/Wound Care/Special Instructions: November shower. No bath tub soaks. Remove dressing February 03. No lifting over 10 pounds until February 07. Diet as tolerated
== END 2019-01-30 12:45 | disposition home or self-care (01) | DRG 854 ==
LOC: EC 15:05 → 4SSUR 19:02 → OBSVTOIN 01-29 09:34
PROVIDERS: ADMIT Surgery Plastic and Reconstructive Surgery; ATTEND Surgery Plastic and Reconstructive Surgery
PROC: 0DTJ4ZZ Resection of Appendix, Percutaneous Endoscopic Approach (ICD-10-PCS; principal; 2019-01-29 08:00)
DX: A41.9 Sepsis, unspecified organism (principal); K35.30 Acute appendicitis with localized peritonitis, without perforation or gangrene; E11.9 Type 2 diabetes mellitus without complications; I11.9 Hypertensive heart disease without heart failure; E78.5 Hyperlipidemia, unspecified; H40.9 Unspecified glaucoma; K21.9 Gastro-esophageal reflux disease without esophagitis; K38.1 Appendicular concretions; K57.90 Diverticulosis of intestine, part unspecified, without perforation or abscess without bleeding; R09.02 Hypoxemia; Z79.84 Long term (current) use of oral hypoglycemic drugs; Z87.891 Personal history of nicotine dependence; Z90.49 Acquired absence of other specified parts of digestive tract; Z80.9 Family history of malignant neoplasm, unspecified
CPT/HCPCS: 36415; 74018; 74176; 80048; 80053; 81001; 82150; 83690; 85025; 88304; 96365; 96375; 99285

== ENCOUNTER → 2019-12-11 | Outpatient (CLI) | payer MEDICARE ==
--- NOTE | 2019-12-11 11:49 | XR ---
EXAMINATION TYPE: XR Hip Complete RT DATE OF EXAM: 12/11/2019 CLINICAL HISTORY: pain TECHNIQUE: AP and frogleg views of the right hip are obtained. COMPARISON: None. FINDINGS: There is no acute fracture/dislocation evident. The joint space appears within normal li mits. The overlying soft tissue appears unremarkable. IMPRESSION: 1. There is no acute fracture or dislocation. ICD 10 NO FRACTURE, INITIAL EVALUATION
== END | disposition home or self-care (01) ==
LOC: RADXRMAIN 11:24
PROVIDERS: ATTEND Family Medicine
DX: M25.551 Pain in right hip (principal); M70.61 Trochanteric bursitis, right hip
CPT/HCPCS: 73502

== ENCOUNTER → 2021-10-23 | Outpatient (CLI) | payer MEDICARE ==
--- NOTE | 2021-10-23 12:43 | ECHOF ---
Referral Reason:R94.31 abnormal EKG MEASUREMENTS -------- HEIGHT: 162.6 cm WEIGHT: 79.4 kg BP: RVIDd: 3.3 cm (< 3.3) IVSd: 1.2 cm (0.6 - 1.1) LVIDd: 4.6 cm (3.9 - 5.3) LVPWd: 1.2 cm (0.6 - 1.1) IVSs: 1.9 cm LVIDs: 3.4 cm LVPWs: 1.7 cm LA Diam: 4.0 cm (2.7 - 3.8) LAESV Index (A-L): 25.46 ml/m Ao Diam: 3.6 cm (2.0 - 3.7) AV Cusp: 2.3 cm (1.5 - 2.6) MV EXCURSION: 19.783 mm (> 18.000) MV EF SLOPE: 60 mm/s (70 - 150) EPSS: 0.3 cm MV E Florian: 1.16 m/s MV DecT: 209 ms MV A Florian: 0.77 m/s MV E/A Ratio: 1.51 AR PHT: 608 ms RAP: 5.00 mmHg RVSP: 33.10 mmHg FINDINGS -------- Sinus rhythm. This was a technically good study. The left ventricular size is normal. There is borderline concentric left ventricular hypertrophy. Overall left ventricular systolic function is normal with, an EF between 60 - 65 %. The right ventricle is mildly enlarged. Normal LA size by volume 22+/-6 ml/m2. The right atrium is normal in size. Interatrial and interventricular septum intact. Aortic valve is trileaflet and is mildly thickened. There is mild aortic regurgitation. There is trace to mild mitral regurgitation. Mild tricuspid regurgitation present. Right ventricular systolic pressure is normal at < 35 mmHg. Trace/mild (physiologic) pulmonic regurgitation. The aortic root size is normal. Normal inferior vena cava with normal inspiratory collapse consistent with estimated right atrial pre ssure of 5 mmHg. There is no pericardial effusion. CONCLUSIONS -------- 1. The left ventricular size is normal. 2. There is borderline concentric left ventricular hypertrophy. 3. Overall left ventricular systolic function is normal with, an EF between 60 - 65 %. 4. The right ventricle is mildly enlarged. 5. Aortic valve is trileaflet and is mildly thickened. 6. There is mild aortic regurgitation. 7. There is trace to mild mitral regurgitation. 8. Mild tricuspid regurgitation present. 9. Trace/mild (physiologic) pulmonic regurgitation. 10. There is no pericardial effusion. WATERPROOFER HELPER: Kathy Rodrigues RDCS
== END | disposition home or self-care (01) ==
LOC: RADECHMAIN 11:35
PROVIDERS: ATTEND Family Medicine
DX: I08.8 Other rheumatic multiple valve diseases (principal)
CPT/HCPCS: 93306

== ENCOUNTER 2022-01-04 16:29 | Inpatient (IN) | payer MEDICARE ==
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
[2022-01-04 17:24] LABS: Basophils # (A) 0.1 k/uL (0-0.2); Basophils % (A) 1 %; Eosinophils # (A) 0.2 k/uL (0-0.7); Eosinophils % (A) 2 %; HCT 52.8 % (39.0-53.0); HGB 16.8 gm/dL (13.0-17.5); Lymphocytes # (A) 1.1 k/uL (1.0-4.8); Lymphocytes % (A) 14 %; MCH 29.4 pg (25.0-35.0); MCHC 31.9 g/dL (31.0-37.0); Mean Platelet Volume 7.9; Monocytes # (A) 0.6 k/uL (0-1.0); Monocytes % (A) 7 %; Neutrophils % (A) 75 %; Platelet Count 166 k/uL (150-450); RBC 5.74 m/uL (4.30-5.90); RDW 13.4 % (11.5-15.5)
[2022-01-04 17:31] LABS: Partial Thromboplastin Time 24.5 sec (22.0-30.0); Prothrombin Time 11.2 sec (9.0-12.0)
[2022-01-04 17:42] LABS: Albumin 4.9 g/dL (3.5-5.0); Calcium 9.6 mg/dL (8.4-10.2); Potassium 3.9 mmol/L (3.5-5.1); Total Bilirubin 0.7 mg/dL (0.2-1.3); Total Protein 7.7 g/dL (6.3-8.2)
--- NOTE | 2022-01-04 17:49 | CT ---
EXAMINATION TYPE: CT brain wo con DATE OF EXAM: 01/04/2022 COMPARISON: None HISTORY: Slurred speech and facial droop-last night CT DLP: 1041.1 mGycm Automated exposure control for dose reduction was used. Images obtained of the brain without contrast. There is 2.7 x 2 cm area of hypodensity in the right posterior frontal lobe white matter. There is no mass effect. No midline shift. No sign of intracranial hemorrhage. There is subtle 1 cm hypodensity anterior left internal capsule. The calvarium is intact. Skull base is intact. There is normal aerati on of the mastoid sinuses. Ventricles have normal size. IMPRESSION: There is evidence of subacute infarct right posterior frontal lobe mendoza and white matter. There is sm all lacunar infarct left anterior internal capsule.
--- NOTE | 2022-01-04 17:51 | XR ---
EXAMINATION TYPE: XR chest 2V DATE OF EXAM: 01/04/2022 COMPARISON: 11/24/2016 HISTORY: Altered mental status TECHNIQUE: 2 views FINDINGS: Heart is normal. Lungs are clear of consolidation. There are no hilar masses. No heart fail ure seen. There are chest leads. No pleural effusion. Bony thorax appears intact. IMPRESSION: No active cardiopulmonary disease. There is improved aeration of the lungs compared to la st exam.
[2022-01-04] MEDS ORDERED: HEPARIN SODIUM 1,000 UN/ML (10ML VL) IV PRN (18:17)
[2022-01-04] MEDS: HEPARIN SOD,PORK IN 0.45% NACL 25,000 UNIT in 0.45% NACL 1 250ML.BAG IV SCH (18:44)
--- NOTE | 2022-01-04 19:48 | US ---
EXAMINATION TYPE: US carotid duplex BILAT DATE OF EXAM: 01/04/2022 COMPARISON: NONE CLINICAL HISTORY: Stenosis. stroke today, facial drooping EXAM MEASUREMENTS: RIGHT: Peak Systolic Velocity (PSV) cm/sec ----- Right CCA: 58.0 ----- Right ICA: 75.2 ----- Right ECA: 112.0 ICA/CCA ratio: 1.3 RIGHT: End Diastole cm/sec ----- Right CCA: 8.2 ----- Right ICA: 17.6 ----- Right ECA: 6.2 LEFT: Peak Systolic Velocity (PSV) cm/sec ----- Left CCA: 62.1 ----- Left ICA: 72.6 ----- Left ECA: 100.0 ICA/CCA ratio: 1.1 LEFT: End Diastole cm/sec ----- Left CCA: 14.4 ----- Left ICA: 12.2 ----- Left ECA: 11.6 VERTEBRALS (direction of flow): Right Vertebral: Antegrade Left Vertebral: Antegrade Rhythm: Normal Mild heterogenous plaque bilateral bulbs, no significant stenosis IMPRESSION: There is antegrade flow in the vertebral arteries. The images and measurements suggest less than 25% stenosis in both internal carotid arteries. Criteria for Assigning % of Stenosis / Diameter reduction (Estimation based on the indirect measurements of the internal carotid artery velocities (ICA PSV). 1. Normal (no stenosis)=ICA PSV < 125 cm/s: ratio < 2.0: ICA EDV<40 cm/s. 2. Less than 50% stenosis=ICA PSV < 125 cm/s: ratio < 2.0: ICA EDV<40 cm/s. 3. 50 to 69% stenosis=ICA PSV of 125 to 230 cm/s: ration 2.0 ? 4.0: ICA EDV 40-100 cm/s. 4. Greater than 70% stenosis to near occlusion= ICA PSV > 230 cm/s: ratio > 4.0: ICA EDV > 100 cm/s. 5. Near occlusion= ICA PSV velocities may be low or undetectable: variable ratio and ICA EDV. 6. Total occlusion=unable to detect flow.
[2022-01-04] MEDS ORDERED: ATORVASTATIN 10 MG TAB PO SCH (21:00)
[2022-01-05 05:51] LABS: Glucose,Whole Blood 119 mg/dL (75-99)
[2022-01-05 08:08] LABS: INR 1.1 (<1.2); Partial Thromboplastin Time 53.9 sec (22.0-30.0); Prothrombin Time 11.5 sec (9.0-12.0)
[2022-01-05] MEDS: LINAGLIPTIN 5 MG TABLET PO SCH (08:25)
[2022-01-05] MEDS: lisinopriL 20 MG TAB PO SCH (08:25)
[2022-01-05] MEDS: amLODIPine 10 MG TAB PO SCH (08:26)
[2022-01-05 08:28] LABS: Basophils % (A) 0 %; Eosinophils # (A) 0.2 k/uL (0-0.7); Eosinophils % (A) 2 %; HCT 47.7 % (39.0-53.0); HGB 15.4 gm/dL (13.0-17.5); Lymphocytes # (A) 1.3 k/uL (1.0-4.8); Lymphocytes % (A) 18 %; MCH 29.7 pg (25.0-35.0); MCHC 32.4 g/dL (31.0-37.0); MCV 91.9 fL (80.0-100.0); Mean Platelet Volume 8.1; Monocytes # (A) 0.6 k/uL (0-1.0); Monocytes % (A) 8 %; Neutrophils # (A) 5.1 k/uL (1.3-7.7); Neutrophils % (A) 70 %; Platelet Count 149 k/uL (150-450); RBC 5.19 m/uL (4.30-5.90); RDW 13.9 % (11.5-15.5); WBC 7.3 k/uL (3.8-10.6)
[2022-01-05] MEDS ORDERED: NON FORMULARY DRUG (Amlodipine Besylate/Benazepril [Lotrel 10-20 Mg] 1 EACH Capsule) PO SCH (09:00)
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
--- NOTE | 2022-01-05 11:04 | CA ---
Transthoracic Echo Report Name: Chin Morales Age: 76 Gender: M : 1945 Exam Date: 01/05/2022 09:42 Exam Location: [place] [facility] Ht (in): 63 Wt (lb): 170 Ordering Physician: Vincent Lama DO Attending/Referring Phys: Paint Mixer Machine Courtney Garrido RDCS Procedure CPT: Indications: Thrombus Cardiac Hx: Hx of stroke,htn,chol. Technical Quality: Contrast 1: Total Dose (mL): Contrast 2: Total Dose (mL): MEASUREMENTS (Male / Female) Normal Values 2D ECHO LV Diastolic Diameter PLAX 4.1 cm 4.2 - 5.9 / 3.9 - 5.3 cm LV Systolic Diameter PLAX 1.7 cm IVS Diastolic Thickness 0.9 cm 0.6 - 1.0 / 0.6 - 0.9 cm LVPW Diastolic Thickness 1.2 cm 0.6 - 1.0 / 0.6 - 0.9 cm LV Relative Wall Thickness 0.5 FINDINGS Left Ventricle Normal left ventricular size, wall thickness, systolic function with no obvious regional wall motion abnormalities. Normal left ventricular diastolic filling pattern for age. The ejection fraction is visually estimated at 55-60 %. Right Ventricle Right Atrium Left Atrium Mitral Valve Aortic Valve Tricuspid Valve Pulmonic Valve Pericardium No pericardial effusion. Aorta CONCLUSIONS Left ventricle size and function are within normal limits Previewed by: Dr. Brittni Solomon MD (Electronically Signed) Final Date: 05 January 2022 11:03
[2022-01-05] MEDS: TIMOLOL 0.5% OPHTH DROPS 5 ML BTL BOTH EYES SCH (11:19)
[2022-01-05 11:20] LABS: Chol/HDL Ratio 3.27 Ratio; LDL Cholesterol,Calculated 64.3 mg/dL (0.0-131.0); VLDL Calculation 18.26 mg/dL (5.00-40.00)
[2022-01-05 11:37] LABS: Glucose,Whole Blood 118 mg/dL (75-99)
--- NOTE | 2022-01-05 13:44 | MR ---
EXAMINATION TYPE: MR brain wo con DATE OF EXAM: 01/05/2022 COMPARISON: CT 01/04/2022 HISTORY: 76-year-old male with slurred speech and facial droop, CVA TECHNIQUE: Multiplanar, multisequence images of the brain and brainstem were acquired without IV con trast. Diffusion weighted imaging is performed. FINDINGS: Areas of cortical subcortical infarct are present within the lateral right frontal lobe, right insula r lobe, as well as a few small foci within the right centrum semiovale. These areas show corresponding right T2/FLAIR weighted signal and corresponding sulcal effacement. No midline shift, hydrocephalus, or herniation is seen. No extra-axial fluid collection. There is background of moderate scattered bright signal foci within the subcortical and deep white ma tter regions of both cerebral hemispheres. Incidental hypoplastic right vertebral artery The ventricles and sulci are age-appropriate. Midline structures demonstrate normal morphology. The craniocervical junction is normal. Mild mucosal thickening ethmoid air cells. Leftward nasal septal deviation. 1.8 cm mucosal retention cyst floor of the right maxillary sinus. Globes appear intact. IMPRESSION: 1. Areas of acute cortical and subcortical infarcts (greater than 6 hours in duration) involving a po rtion of the right MCA territory including areas in the lateral right frontal lobe, right insular lob e, and small foci within the centrum semiovale. Some localized sulcal effacement is noted but no midl ine shift or herniation. 2. Mild chronic ethmoid ethmoid and right maxillary sinus disease.
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
[2022-01-05] MEDS: HEPARIN SOD,PORK IN 0.45% NACL 25,000 UNIT in 0.45% NACL 1 250ML.BAG IV SCH (15:59)
[2022-01-05 16:27] LABS: Glucose,Whole Blood 110 mg/dL (75-99)
[2022-01-05 20:43] LABS: Glucose,Whole Blood 109 mg/dL (75-99)
[2022-01-05] MEDS ORDERED: ATORVASTATIN 40 MG TAB PO SCH (21:00)
[2022-01-06 06:02] LABS: Glucose,Whole Blood 125 mg/dL (75-99)
[2022-01-06 08:18] LABS: Calcium 9.2 mg/dL (8.4-10.2); Potassium 4.3 mmol/L (3.5-5.1)
[2022-01-06 08:43] LABS: Basophils % (A) 1 %; Eosinophils # (A) 0.2 k/uL (0-0.7); Eosinophils % (A) 3 %; HCT 49.1 % (39.0-53.0); HGB 16.3 gm/dL (13.0-17.5); Lymphocytes # (A) 1.3 k/uL (1.0-4.8); Lymphocytes % (A) 18 %; MCH 30.5 pg (25.0-35.0); MCHC 33.1 g/dL (31.0-37.0); Mean Platelet Volume 8.7; Monocytes # (A) 0.5 k/uL (0-1.0); Monocytes % (A) 7 %; Neutrophils # (A) 5.1 k/uL (1.3-7.7); Neutrophils % (A) 69 %; Platelet Count 150 k/uL (150-450); RBC 5.34 m/uL (4.30-5.90); RDW 13.9 % (11.5-15.5); WBC 7.3 k/uL (3.8-10.6)
[2022-01-06] MEDS: amLODIPine 10 MG TAB PO SCH (09:03)
[2022-01-06] MEDS: lisinopriL 20 MG TAB PO SCH (09:03)
[2022-01-06] MEDS: LINAGLIPTIN 5 MG TABLET PO SCH (09:04)
[2022-01-06] MEDS: TIMOLOL 0.5% OPHTH DROPS 5 ML BTL BOTH EYES SCH (09:04)
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
[2022-01-06 11:34] LABS: Glucose,Whole Blood 126 mg/dL (75-99)
[2022-01-06 11:37] VITALS: TEMP 98.2
--- NOTE | 2022-01-06 12:07 | P.PN ---
Subjective Progress Note Date: 01/06/22 The patient is seen at bedside and is accompanied by his daughter. Patient feels about the same and feels he is doing well. Denies of any new neurological deficits. He is left hand-dominant. Objective - Vital Signs Vital signs: Vital Signs Temp 98.2 F 01/06/22 11:27 Pulse 58 L 01/06/22 11:27 Resp 19 01/06/22 11:27 BP 150/80 01/06/22 11:27 Pulse Ox 97 01/06/22 11:27 FiO2 Intake & Output 01/05/22 01/06/22 01/06/22 18:59 06:59 18:59 Intake Total 418.71 120 480 Balance 418.71 120 480 Intake: Intake, IV Titration 178.71 Amount Heparin Sod,Pork in 0.45% 178.71 NaCl 25,000 unit In 0.45 % NaCl 1 250ml.bag @ 12 UNITS/KG/HR 9.253 mls/hr IV .Q24H [facility] Rx#: [id number] Oral 240 120 480 Other: Voiding Method Toilet Toilet # Voids 1 2 - Exam GENERAL: The patient is lying in bed and is not in acute distress. NEUROLOGICAL: Higher mental function: The patient is awake, alert, oriented to self, place and time. Patient is following commands. No aphasia and no neglect. Cranial nerves: The pupils are round, equal and reactive to light and accommodation. Visual osborne are full to confrontation throughout. Extraocular movement is intact no nystagmus is noted. Facial sensation is normal to touch throughout. The facial strength is left nasolabial flattening. Hearing is moderately decreased bilaterally to hand rub. Tongue is midline and moved [id number] without any difficulty. No dysarthria is noted. Shoulder shrug is normal bilaterally. Motor: The strength is left upper is 4+ to 5-. Otherwise 5 over 5 throughout. Normal tone and bulk. Cerebellum: Normal finger to nose bilaterally. Sensation: Sensation is normal to touch throughout. Reflexes (right/left): 1+ throughout. Plantars are downgoing bilaterally. SOME OF THE WORK-UP DURING THIS ADMISSION: CT of the head is reported as there is evidence of subacute infarct in the right posterofrontal lobe mendoza and white matter. There is small lacunar infarct in left anterior internal capsule. I personally reviewed the CT and I do agree that it seems subacute over the right subcortical frontal as well as appears temporal as well. There is no acute parenchymal hemorrhage. MRI the brain is reported as area of acute cortical and subcortical infarct greater than 6 hours duration involving the portion of the right MCA territory including the right right frontal lateral, right insular lobe and small foci within the central semi-old valve. Some localized sulcal effacement is noted but no midline shift or herniation. Mild chronic ethmoid the and right maxillary sinus disease. I personally reviewed the MRI agree with the report. Carotid duplex was reported as there is antegrade flow in the vertebral arteries. Images and measurements suggest less than 25% stenosis in both internal carotid arteries. CBC, chemistry panel is reviewed by me. EKG is reported as atrial fibrillation. Borderline left axis deviation. Right bundle branch block. Limited 2-D echo was reported as left ventricle size and function is within normal limits. Ejection fraction of 55-60%. Lipid panel is triglyceride of 91, cholesterol 219, LDL 64 and HDL is 36. Hemoglobin A1c was 6.2. - Labs CBC & Chem 7: 01/06/22 06:40 01/06/22 06:40 Labs: Abnormal Lab Results - Last 24 Hours (Table) 01/05/22 01/05/22 01/05/22 Range/Units 07:00 16:26 20:41 APTT (22.0-30.0) sec Chloride (98-107) mmol/L Carbon Dioxide (22-30) mmol/L Glucose (74-99) mg/dL POC Glucose (mg/dL) 110 H 109 H (75-99) mg/dL Hemoglobin A1c 6.2 H (0.0-6.0) % 01/06/22 01/06/22 01/06/22 Range/Units 06:00 06:40 06:40 APTT 60.6 H (22.0-30.0) sec Chloride 108 H (98-107) mmol/L Carbon Dioxide 21 L (22-30) mmol/L Glucose 117 H (74-99) mg/dL POC Glucose (mg/dL) 125 H (75-99) mg/dL Hemoglobin A1c (0.0-6.0) % 01/06/22 Range/Units 11:32 APTT (22.0-30.0) sec Chloride (98-107) mmol/L Carbon Dioxide (22-30) mmol/L Glucose (74-99) mg/dL POC Glucose (mg/dL) 126 H (75-99) mg/dL Hemoglobin A1c (0.0-6.0) % Assessment and Plan Assessment: Subacute stroke over the Right MCA distribution. Presented with mild dysarthria and left nasolabial flattening. On examination his dysarthria has resolved but has weakness of left upper extremity in addition to left nasolabial flattening). Due to cardioembolic (especially with history of newly Atrial fibrillation). No IV tpa since outside window and risk outweigh benefit. New onset atrial fibrillation Hypertension Hyperlipidemia Diabetes mellitus Plan: On heparin drip. Recommend avoiding any heparin boluses and to keep the PTT between 45-60. Recommend starting Eliquis 5mg bid two days from today to avoid hemorrhagic conversion. If patient will be discharged then recommend Lovenox injection. Decrease Lipitor from 40 mg to 20mg daily at bedtime for secondary stroke prophylaxis PT OT and OFFSET PRESS OPERATOR are consulted Continue neuro checks On cardiac monitoring Cardiology team is on board We'll defer the rest of the medical management to the primary team. For DVT prophylaxis the patient is on heparin drip. Recommend patient to follow-up with neurologist within 1-2 weeks as outpatient. The plan is discussed with patient, his daughter who is at bedside and primary team. Otherwise no additional work-up and patient is clear for discharge from neurological perspective. Sotero Hanson M.D. Neuro-Hospitalist
[2022-01-06 14:12] VITALS: BP 150/80; PULSE 58; RESP 20
[2022-01-06] MEDS ORDERED: ENOXAPARIN 40 MG/0.4 ML SYRINGE SQ STA (15:42)
[2022-01-06] MEDS ORDERED: ATORVASTATIN 20 MG TAB PO SCH (21:00)
--- NOTE | 2022-01-07 08:41 | P.DS ---
Providers Date of admission: 01/04/22 18:18 Expected date of discharge: 01/06/22 Attending physician: Sonia Jalloh Consults: 01/04/22 18:18 Consult Physician Urgent Consulting Provider: Brittni Solomon Consult Reason/Comments: a fib, new onset w cva Do you want consulting provider notified?: Yes Consult Physician Urgent Consulting Provider: Adam Santoyo Consult Reason/Comments: cva Do you want consulting provider notified?: Yes Primary care physician: Physician Nonstaff Hospital Course: Final diagnosis Subacute stroke involving the right posterior frontal lobe and lacunar infarct left anterior internal capsule. 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 Patient is out of window for tPA. Left facial droop and slurred speech secondary to above. New onset atrial fibrillation with controlled heart rate Hypertension Hyperlipidemia Diabetes type 2 diet controlled/borderline GERD Previous history of smoking DVT prophylaxis Discharge disposition Patient is being discharged in a stable condition with guarded prognosis to home. Patient will follow-up with his primary care provider upon discharge. Patient is to follow-up with cardiology as scheduled appointment and also neurology in one week. Patient will continue on Lovenox subcutaneous for the next 2 days and then start Eliquis 5 mg twice a day per neurology. Total time taken is greater than 35 minutes. Hospital course This is a 76-year-old male who was recently admitted with slurring of speech and left facial droop and was being closely monitored. Patient was outside the window for TPA and was initially started on IV heparin and CT of the brain did show evidence of subacute infarct in the right posterior frontal lobe and smaller locular infarct at the left anterior internal capsule. Patient underwent MRI and will need close outpatient follow-up with neurology in one week. Patient was transitioned to subcutaneous Lovenox with education provided as patient will be continuing this for the next 2-3 days prior to initiating Eliquis as neurology wants to prevent hemorrhagic shift and recommends holding oral anticoagulant for 2 days. Patient also to follow-up with cardiology in the outpatient setting. Patient reports to feeling much better and would like to go home. Currently no reports of chest pain, shortness of breath, or palpitations. Patient is afebrile. No reports of nausea or vomiting and patient is tolerating diet. Patient will be discharged home today. Guarded prognosis. Physical exam: Gen: This is a 76-year-old male awake, alert and oriented 3, well-developed, well-nourished. HEENT: Head is atraumatic, normocephalic. Pupils equal, round. Sclerae is anicteric. NECK: Supple. No JVD. No lymphadenopathy. No thyromegaly. LUNGS: Clear to auscultation. No wheezes or rhonchi. No intercostal retractions. HEART: Regular rate and rhythm. No murmur. ABDOMEN: Soft. Bowel sounds are present. No masses. No tenderness. EXTREMITIES: No pedal edema. No calf tenderness. NEUROLOGICAL: Patient is awake, alert and oriented x3. Cranial nerves 2 through 12 are grossly intact. Please refer to medication reconciliation sheet for a list of medications. The impression and plan of care has been dictated by Laura Tanner, Nurse Practitioner as directed. Dr. Jose MD I have performed a history and examination and MDM of this patient, discussed the same with the dictator, and agree with the dictator's assessment and plan as written ,documented as a scribe. Based on total visit time, I have performed more than 50% of the visit. Patient Condition at Discharge: Stable Plan - Discharge Summary Discharge Rx Participant: No New Discharge Prescriptions: New Enoxaparin [Lovenox] 40 mg SQ DAILY 3 Days #3 each Apixaban [Eliquis] 5 mg PO BID 30 Days #60 tab Continue sitaGLIPtin [Januvia] 100 mg PO DAILY amLODIPine BESYLATE/BENAZEPRIL [Lotrel 10-20 MG] 1 cap PO DAILY Simvastatin [Zocor] 20 mg PO HS Tadalafil [Cialis] 5 mg PO DAILY Timolol 0.5% Ophth Soln [Timoptic 0.5% Ophth Soln] 1 drop BOTH EYES DAILY Multivitamins, Thera [Multivitamin (formulary)] 1 tab PO DAILY Discharge Medication List Simvastatin [Zocor] 20 mg PO HS 11/19/16 [History] amLODIPine BESYLATE/BENAZEPRIL [Lotrel 10-20 MG] 1 cap PO DAILY 11/19/16 [History] sitaGLIPtin [Januvia] 100 mg PO DAILY 11/19/16 [History] Tadalafil [Cialis] 5 mg PO DAILY 11/24/16 [History] Timolol 0.5% Ophth Soln [Timoptic 0.5% Ophth Soln] 1 drop BOTH EYES DAILY 01/28/19 [History] Multivitamins, Thera [Multivitamin (formulary)] 1 tab PO DAILY 01/04/22 [History] Apixaban [Eliquis] 5 mg PO BID 30 Days #60 tab 01/05/22 [Rx] Enoxaparin [Lovenox] 40 mg SQ DAILY 3 Days #3 each 01/06/22 [Rx] Follow up Appointment(s)/Referral(s): Albert Freeman MD [STAFF PHYSICIAN] - 01/13/22 9:45 am (Follow-up with Edie Bajwa/Dr. Freeman next week) NormaPhysician [Primary Care Provider] - 1-2 days Sotero Poon MD [STAFF PHYSICIAN] - 1 Week (office will contact you with appointment ) Patient Instructions/Handouts: How to Give a Subcutaneous Injection (DC), Ischemic Stroke (DC) Activity/Diet/Wound Care/Special Instructions: Activity limited until follow-up Follow-up with primary care provider on discharge Follow-up with neurology in 1-2 weeks Follow-up cardiology in one week Continue taking medications as prescribed Continue with Lovenox daily for the next 2 days and then start Eliquis 5mg bid after on 01/08/2022 Recommend continue with a heart healthy consistent carb diet and continue to monitor blood sugars closely and keep a diary of readings for primary care follow-up Discharge Disposition: HOME SELF-CARE
== END 2022-01-06 16:02 | disposition home or self-care (01) | DRG 66 ==
LOC: EC 16:29 → 3SCARD 18:18
PROVIDERS: ADMIT Hospitalist; ATTEND Hospitalist
DX: I63.40 Cerebral infarction due to embolism of unspecified cerebral artery (principal); I63.81 Other cerebral infarction due to occlusion or stenosis of small artery; E11.9 Type 2 diabetes mellitus without complications; E78.5 Hyperlipidemia, unspecified; I10 Essential (primary) hypertension; R47.1 Dysarthria and anarthria; I65.23 Occlusion and stenosis of bilateral carotid arteries; R29.810 Facial weakness; I45.10 Unspecified right bundle-branch block; I48.0 Paroxysmal atrial fibrillation; K21.9 Gastro-esophageal reflux disease without esophagitis; V89.2XXA Person injured in unspecified motor-vehicle accident, traffic, initial encounter; Y92.410 Unspecified street and highway as the place of occurrence of the external cause; Z79.01 Long term (current) use of anticoagulants; Z79.84 Long term (current) use of oral hypoglycemic drugs; Z79.899 Other long term (current) drug therapy; Z87.891 Personal history of nicotine dependence; Z90.49 Acquired absence of other specified parts of digestive tract; Z80.9 Family history of malignant neoplasm, unspecified; Z87.19 Personal history of other diseases of the digestive system
CPT/HCPCS: 36415; 70450; 70551; 71046; 80048; 80053; 80061; 83036; 84443; 84484; 85025; 85610; 85730; 93005; 93308; 93880; 96365; 99291

== ENCOUNTER → 2022-04-03 | Outpatient (CLI) | payer MEDICARE ==
[2022-04-03 18:47] LABS: HCT 48.1 % (39.6-50.0); HGB 16.1 g/dL (13.0-17.0); MCH 29.6 pg (27.0-32.0); MCHC 33.5 g/dL (32.0-37.0); MCV 88.4 fL (80.0-97.0); Mean Platelet Volume 10.5 fL (9.5-12.2); NRBC Per 100 WBC 0 /100 WBCS (0.0-0.0); Platelet Count 196 X 10*3/uL (140-440); RBC 5.44 X 10*6/uL (4.40-5.60); RDW 13.9 % (11.5-14.5); WBC 7.99 X 10*3/uL (4.50-10.00)
[2022-04-03 19:47] LABS: African American GFR (CKD) 57.4 (60.0-200.0); Anion Gap 9.9 mmol/L (10.00-18.00); Blood Urea Nitrogen 17.2 mg/dL (9.0-27.0); Carbon Dioxide 26.6 mmol/L (20.0-27.5); Non-African American GFR(CKD) 49.5 (60.0-200.0); Potassium 4.6 mmol/L (3.5-5.5)
== END | disposition home or self-care (01) ==
LOC: LABPAT 12:05
PROVIDERS: ATTEND Internal Medicine Clinical Cardiac Electrophysiology
DX: Z01.812 Encounter for preprocedural laboratory examination (principal); I48.19 Other persistent atrial fibrillation; I63.9 Cerebral infarction, unspecified; E78.5 Hyperlipidemia, unspecified
CPT/HCPCS: 36415; 80051; 82565; 84520; 85027

== ENCOUNTER → 2022-04-09 | Outpatient (CLI) | payer MEDICARE ==
--- NOTE | 2022-04-09 15:19 | P.SLEEP ---
History of Present Illness DATE: 04/09/2022 CONSULTATION/NEW PATIENT EVALUATION HISTORY OF PRESENT ILLNESS/SLEEP-WAKE EVALUATION: 76 year old gentleman had b een evaluated in the sleep center for possible obstructive sleep apnea hypopnea syndrome. SLEEP SCHEDULE: Usually sleep schedule from 10 PM to 7 AM. FALLING ASLEEP: Sometimes patient has problems with falling asleep, although no TV in bedroom. DURING SLEEP: Patient usually sleeps on the side position and wakes up from sleep 3 times with nocturia. No history of hypnogogical hallucinations, sleep paralysis, or cataplexy. DURING THE DAY/WAKE STATE: Usually no significant sleepiness during the day. [place] sleepiness scale is 3. Patient does not take naps. PAST MEDICAL HISTORY: Of atrial fibrillation, stroke in December 2021 with the some changes of speech, some weakness of the muscle in the face without residual deficit. Hypertension, hyperlipidemia, diabetes mellitus, increased eye pres sure. PAST SURGICAL HISTORY: Cholecystectomy. MEDICATIONS: Eliquis, Lotrel, Januvia, Zocor, she Mollo eyedrops. SOCIAL HISTORY: History of smoking for about 5 years 5 cigarettes a day quit, alcohol consumption occasional. FAMILY HISTORY: Hypertension, heart problems, asthma, cancer, diabetes. REVIEW OF SYSTEMS: Multiple awakenings from sleep, Atrial fibrillation. No fevers. No double vision. No recent chest pain. No shortness of breath. No abdominal pain. No bleeding episodes. No blood in urine. No seizure episodes. PHYSICAL EXAMINATION: GENERAL: A pleasant patient without any distress. VITAL SIGNS: BP 143/70, HR 59, RR 14, weight 172.2 pounds, height 5 foot to inches, body mass index 31.4. HEENT: PERRLA, EOMI. Evaluation of oropharynx showed tongue protrudes midline, low position of soft palate Mallampati 4. NECK: Supple. No JVD. Thyroid is not palpable. 16-3/4 inches in circumference. LUNGS: Clear to percussion and to auscultation. Good air exchange. No wheezing or rhonchi. HEART: S1, S2 . Iegularly irrregular. No murmurs, gallops or rubs. ABDOMEN: Soft and nontender. Bowel sounds are present. No organomegaly appreciated. EXTREMITIES: No clubbing or cyanosis. FACILITIES PAINTER: Awake, alert, and oriented x3. Cranial nerves 2 to 7 intact. There is no fasciculation or atrophy noted. No focal deficits observed. ASSESSMENT: 1. Multiple awakenings from sleep, extremely low position of soft palate Mallampati 4, borderline size of neck. Obstructive sleep apnea hypopnea syndrome. 2. Mild obesity BMI 31.4. 3 diabetes mellitus. 4. Atrial fibrillation. 5 hypertension. 6. Status post stroke in December 2021. 7. Increased eye pressure. 8. Hyperlipidemia. 9. Status post cholecystectomy. PLAN: 1. Polysomnography for evaluation of patient's breathing during sleep. 2. CPAP/BiPAP titration if sleep study confirms obstructive sleep apnea- hypopnea syndrome. 3. Preferable position during sleep on the side. 4. No driving if patient feels any sleepiness. Patient is aware of civil and criminal liability for unsafe driving. 5. Sleep hygiene with regular sleep time for at least 7.5-8 hours. 6. Watching weight. Thank you very much for referring this patient for consultation. Sincerely, Juan Buck MD, PhD, FAASM. Diplomat of [place] [employer], Sleep Medicine Board by [place] [employer] [place] [employer] [facility] [place] Past Medical History Past Medical History: Diabetes Mellitus, GERD/Reflux, Hyperlipidemia, Hypertension Additional Past Medical History / Comment(s): "borderline diabetic", History of Any Multi-Drug Resistant Organisms: None Reported Past Surgical History: Appendectomy, Cholecystectomy, Hernia Repair Additional Past Surgical History / Comment(s): hernia surgery x 3, Past Anesthesia/Blood Transfusion Reactions: No Reported Reaction Past Psychological History: No Psychological Hx Reported Smoking Status: Former smoker Past Alcohol Use History: None Reported Additional Past Alcohol Use History / Comment(s): quit smoking age 28's. smoked for 4-5 yrs, < 1 PPD Past Drug Use History: None Reported - Past Family History Mother Family Medical History: Cancer Medications and Allergies Home Medications Medication Instructions Recorded Confirmed Type Simvastatin [Zocor] 20 mg PO HS 11/19/16 01/04/22 History amLODIPine BESYLATE/BENAZEPRIL 1 cap PO DAILY 11/19/16 01/04/22 History [Lotrel 10-20 MG] sitaGLIPtin [Januvia] 100 mg PO DAILY 11/19/16 01/04/22 History Tadalafil [Cialis] 5 mg PO DAILY 11/24/16 01/04/22 History Timolol 0.5% Ophth Soln [Timoptic 1 drop BOTH EYES DAILY 01/28/19 01/04/22 History 0.5% Ophth Soln] Multivitamins, Thera [Multivitamin 1 tab PO DAILY 01/04/22 01/04/22 History (formulary)] Apixaban [Eliquis] 5 mg PO BID 30 Days #60 tab 01/05/22 Rx Enoxaparin [Lovenox] 40 mg SQ DAILY 3 Days #3 each 01/06/22 Rx Allergies Allergy/AdvReac Type Severity Reaction Status Date / Time No Known Allergies Allergy Verified 01/04/22 17:44 Sleep Note - Sleep Note Sleep Note: Temperature: Pulse Rate: Respiratory Rate: Blood Pressure: SpO2: Height: Weight: BMI: Neck Circumference:
== END ==
LOC: SLEEP 14:21
PROVIDERS: ATTEND Internal Medicine
DX: G47.33 Obstructive sleep apnea (adult) (pediatric) (principal); E66.9 Obesity, unspecified; Z68.31 Body mass index [BMI] 31.0-31.9, adult; E11.9 Type 2 diabetes mellitus without complications; I48.91 Unspecified atrial fibrillation; I10 Essential (primary) hypertension; Z86.73 Personal history of transient ischemic attack (TIA), and cerebral infarction without residual deficits; E78.5 Hyperlipidemia, unspecified; Z90.49 Acquired absence of other specified parts of digestive tract; H40.059 Ocular hypertension, unspecified eye; Z87.891 Personal history of nicotine dependence; Z79.01 Long term (current) use of anticoagulants
CPT/HCPCS: 99211

== ENCOUNTER 2022-04-16 08:14 | Day surgery (SDC) | payer MEDICARE ==
[~2022-04-16 08:14] MED LIST changes: -DEXAMETHASONE SOD PHOSPHATE 10 MG/ML 1 ML VIAL IV ONE; -HEPARIN SODIUM,PORCINE 5,000 UNIT/ML 1 ML VIAL SQ ONE; +LACTATED RINGERS 1,000 ML IV SCH; -LIDOCAINE 1% 20 ML VIAL (10MG/ML) FOR IV START INTRADERMA PRN; -MIDAZOLAM 2 MG/2 ML VIAL IV PRN; -ONDANSETRON 4 MG/2 ML VIAL IVP ONE; -SCOPOLAMINE 1.5MG/72HR PATCH TRANSDERM ONE; +SODIUM CHLORIDE 0.9% 1,000 ML IV SCH; -ceFAZolin IN SWFI 2 GM/20 ML SYRINGE IVP ONE
[2022-04-16] MEDS ORDERED: SODIUM CHLORIDE 0.9% 500 ML 500 ML IV ONE (08:28)
[2022-04-16 08:39] LABS: Glucose,Whole Blood 111 mg/dL (70-110)
[2022-04-16 08:41] VITALS: RESP 16; TEMP 97.9
[2022-04-16] MEDS ORDERED: PROPOFOL 10 MG/ML 20 ML VIAL IV ONE (09:05)
[2022-04-16] MEDS ORDERED: LIDOCAINE 2% INJ 20 MG/ML (2 ML VIAL) ONE (09:05)
--- NOTE | 2022-04-16 09:32 | P.HPCAR ---
History of Present Illness 0365 Physical Exam Vitals: Vital Signs Temp Pulse Resp BP Pulse Ox 04/16/22 08:30 97.9 F 57 L 16 152/79 98 Intake and Output 04/15/22 04/16/22 04/16/22 22:59 06:59 14:59 Intake Total 100 Balance 100 Intake: IV 100 Past Medical History Past Medical History: Atrial Fibrillation, CVA/TIA, Diabetes Mellitus, GERD/Reflux, Hyperlipidemia, Hypertension Additional Past Medical History / Comment(s): "borderline diabetic", mild stroke 01-04-22-no residual effects, to have sleep study soon, see Dr. Freeman H & P History of Any Multi-Drug Resistant Organisms: None Reported Past Surgical History: Appendectomy, Cholecystectomy, Hernia Repair Additional Past Surgical History / Comment(s): hernia surgery x 3 Past Anesthesia/Blood Transfusion Reactions: No Reported Reaction Smoking Status: Former smoker - Past Family History Mother Family Medical History: Cancer Physical Examination Vital Signs Temp Pulse Resp BP Pulse Ox 04/16/22 08:30 97.9 F 57 L 16 152/79 98 Intake and Output 04/15/22 04/16/22 04/16/22 22:59 06:59 14:59 Intake Total 100 Balance 100 Intake: IV 100 Results Current Medications Generic Name Dose Route Start Last Admin Trade Name Freq PRN Reason Stop Dose Admin Lactated Ringer's 1,000 mls @ 20 mls/hr 04/14/22 18:15 Lactated Ringers IV 05/14/22 18:16 .Q24H MARLI Sodium Chloride 1,000 mls @ 20 mls/hr 04/16/22 05:57 Saline 0.9% IV 05/16/22 05:58 .Q24H MARLI Intake and Output 04/15/22 04/16/22 04/16/22 22:59 06:59 14:59 Intake Total 100 Balance 100 Intake: IV 100
--- NOTE | 2022-04-16 09:35 | P.EPPROC ---
- EP Procedure Note Electrophysiology Procedure Note: Diagnosis Persistent atrial fibrillation History of CVA High STEPHIE VASC or Now on ELIQUIS Procedure Successful electrical cardioversion to sinus rhythm Follow-up EKG shows sinus mechanism, mild prolonged [place] interval, incomplete right bundle branch block pattern Plan Continue anticoagulation Continue antihypertensive therapy No antiarrhythmic drugs for now Reevaluate patient's energy level and exercise capacity while in sinus rhythm Follow-up in about 4 weeks
[2022-04-16 13:05] VITALS: BP 121/60; PULSE 64
== END 2022-04-16 10:31 | disposition home or self-care (01) ==
LOC: CATHCVL 08:14
PROVIDERS: ATTEND Internal Medicine Clinical Cardiac Electrophysiology
DX: I48.19 Other persistent atrial fibrillation (principal); I10 Essential (primary) hypertension; E78.5 Hyperlipidemia, unspecified; Z86.73 Personal history of transient ischemic attack (TIA), and cerebral infarction without residual deficits; R73.03 Prediabetes; Z90.49 Acquired absence of other specified parts of digestive tract; Z98.890 Other specified postprocedural states; Z87.891 Personal history of nicotine dependence; Z80.9 Family history of malignant neoplasm, unspecified; Z82.49 Family history of ischemic heart disease and other diseases of the circulatory system; Z72.0 Tobacco use; Z79.01 Long term (current) use of anticoagulants; Z79.899 Other long term (current) drug therapy; Z20.822 Contact with and (suspected) exposure to COVID-19
CPT/HCPCS: 92960; 87635; J2704; J2001

== ENCOUNTER → 2022-11-25 | Outpatient (CLI) | payer MEDICARE ==
--- NOTE | 2022-11-25 17:14 | P.PN ---
Subjective DATE: 11/25/2022 FOLLOW UP VISIT. Patient with obstructive sleep apnea hypopnea syndrome return to sleep center for follow-up visit. Recently patient had sleep study which documented obstructive sleep apnea hypopnea syndrome. Patient was initiated on PAP therapy and today is first visit after treatment was started. Patient was able to use PAP equipment every night for the whole night. The patient does not have significant problems with the mask, PAP pressure. Patient feels dryness in the nose.. [place] sleepiness scale is 4, which is normal. I checked information from PAP unit. PAP unit pressure 5-8, average 7.8 cm H2O. Usage is 100 % for more then 4 hours, average 5.5 hours per night. Leak is perfect 0 l/m. Apnea Hypopnea Index is absolutely normal 2.1. She did humidity is off, temperature in the tube is off. MEDICATIONS:1. Eliquis 2. Lotrel 3. Zocor 4. Januvia During physical exam: GENERAL: A pleasant patient without any distress. VITAL SIGNS: BP 138/70, HR 65, RR 18, weight 172.6, temperature 98.1, oxygen saturation at room air 95%. HEENT: PERRLA, EOMI.low position of soft palate, Mallapati 4 . NECK: Supple. No JVD. LUNGS: Clear to percussion and to auscultation. Good air exchange. No wheezing or rhonchi. HEART: S1, S2 regular. ABDOMEN: Soft and nontender.[] EXTREMITIES: No clubbing or cyanosis. CHIEF DESIGN DRAFTER: Awake, alert, and oriented x3. No focal deficit. Impressions: 1. Obstructive sleep apnea-hypopnea syndrome in severe range, apnea-hypopnea index 37.2. Patient demonstrated great compliance with treatment, benefiting from treatment. Normal respiration on CPAP 2. History of atrial fibrillation. 3. Hypertension. 4. Status post stroke in December 2021. 5. History of increased eye pressure. 6. Hyperlipidemia. 7. Diabetes mellitus. 8. Status post cholecystectomy. 9. Mild obesity, body mass index around 31. I teach patient how to regulate temperature in the tube and humidifier. Temperature in the tube was adjusted to 80, temperature and humidifier was adjusted to level 4. Plan: 1. Continue using PAP equipment every night for the whole night. 2. To change air filter at least 1-2 times per month. 3. PAP unit should stay lower then position of the head. 4. Advised patient to remove all remaining water from humidifier canister daily and make it dry after each usage. Refill canister with fresh distilled water before each usage. 5. Sleep hygiene with regular time in bed for at least 8 hours. 6. Precautions related to driving. No driving if feel any sleepiness. 7. I will maintain prescription for PAP supplies including mask, tube, filters. 8. Follow up visit in 6 months or earlier if patient has any problems. 9. Watching weight. Thank you very much for allowing me to participate in the management of your patient. Juan Buck MD, PhD, FAASM. Diplomat of [place] [employer], Sleep Medicine Board by [place] [employer] Knife Operator of [facility] [place]
== END ==
LOC: SLEEP 16:23
PROVIDERS: ATTEND Internal Medicine
DX: G47.33 Obstructive sleep apnea (adult) (pediatric) (principal); Z99.89 Dependence on other enabling machines and devices; E11.9 Type 2 diabetes mellitus without complications; E66.9 Obesity, unspecified; E78.5 Hyperlipidemia, unspecified; I10 Essential (primary) hypertension; I48.91 Unspecified atrial fibrillation; Z86.73 Personal history of transient ischemic attack (TIA), and cerebral infarction without residual deficits; Z90.49 Acquired absence of other specified parts of digestive tract; Z79.01 Long term (current) use of anticoagulants; Z87.891 Personal history of nicotine dependence
CPT/HCPCS: 99212

== ENCOUNTER 2023-01-30 08:59 | Observation (INO) | payer MEDICARE ==
[2023-01-30] MEDS ORDERED: KETOROLAC 15 MG/ML 1 ML VIAL IVP STA (09:18)
--- NOTE | 2023-01-30 09:32 | ED ---
Abdominal Pain HPI - General Chief Complaint: Abdominal Pain Stated Complaint: Abd pain Time Seen by Provider: 01/30/23 09:09 Source: patient, RN notes reviewed Mode of arrival: ambulatory Limitations: no limitations - History of Present Illness Initial Comments: This is a 77-year-old male who presents to the emergency department for abdominal pain. States that about a week ago, he was mowing the lawn with a push mower. When he woke up the next morning he started notice pain in his mid abdomen. However, he notes that he does yard work and is physically active on an almost daily basis and this has never happened before. The pain continued to occur on an intermittent basis over the next week. However, yesterday, he was using his weed hafsa. Since then, the pain has been severe and constant. Movement exacerbates the pain. He took Tylenol with no relief. Denies any nausea, vomiting, diarrhea, or constipation. Also denies any difficulty urin ating. Denies any history of similar symptoms in the past. Denies any fevers, chills, sore throat, cough, dyspnea, chest pain, palpitations, nausea, vomiting, diarrhea, back pain, or headaches. MD Complaint: abdominal pain - Related Data Home Medications Medication Instructions Recorded Confirmed amLODIPine BESYLATE/BENAZEPRIL 1 cap PO DAILY 11/19/16 01/30/23 [Lotrel 10-20 MG] sitaGLIPtin [Januvia] 100 mg PO DAILY 11/19/16 01/30/23 Timolol 0.5% Ophth Soln [Timoptic 1 drop BOTH EYES DAILY 01/28/19 01/30/23 0.5% Ophth Soln] Multivitamins, Thera [Multivitamin 1 tab PO DAILY 04/14/22 01/30/23 (formulary)] Atorvastatin [Lipitor] 40 mg PO HS 01/30/23 01/30/23 Previous Rx's Medication Instructions Recorded Apixaban [Eliquis] 5 mg PO BID 30 Days #60 tab 01/05/22 Allergies Allergy/AdvReac Type Severity Reaction Status Date / Time No Known Allergies Allergy Verified 01/30/23 12:58 Review of Systems ROS Statement: Those systems with pertinent positive or pertinent negative responses have been documented in the HPI. ROS Other: All systems not noted in ROS Statement are negative. Past Medical History Past Medical History: Diabetes Mellitus, GERD/Reflux, Hyperlipidemia, Hypertension Additional Past Medical History / Comment(s): "borderline diabetic", History of Any Multi-Drug Resistant Organisms: None Reported Past Surgical History: Appendectomy, Cholecystectomy, Hernia Repair Additional Past Surgical History / Comment(s): hernia surgery x 3, Past Anesthesia/Blood Transfusion Reactions: No Reported Reaction Past Psychological History: No Psychological Hx Reported Smoking Status: Former smoker Past Alcohol Use History: None Reported Past Drug Use History: None Reported - Past Family History Mother Family Medical History: Cancer General Exam Limitations: no limitations General appearance: alert, in distress Head exam: Present: atraumatic, normocephalic, normal inspection Respiratory exam: Present: normal lung sounds bilaterally. Absent: respiratory distress, wheezes, rales, rhonchi, stridor Cardiovascular Exam: Present: regular rate, normal rhythm, normal heart sounds. Absent: systolic murmur, diastolic murmur, rubs, gallop, clicks GI/Abdominal exam: Present: soft, normal bowel sounds. Absent: distended, tenderness, guarding, rebound, rigid Neurological exam: Present: alert, oriented X3, CN II-XII intact Psychiatric exam: Present: normal affect, normal mood Skin exam: Present: warm, dry, intact, normal color. Absent: rash Course Vital Signs 01/30/23 01/30/23 01/30/23 09:03 10:39 12:40 Temperature 97.7 F Pulse Rate 65 74 60 Pulse Rate [ Left] Respiratory 20 18 18 Rate Blood Pressure 151/78 127/80 140/96 Blood Pressure [Right Arm] O2 Sat by Pulse 96 94 L 94 L Oximetry 01/30/23 14:00 Temperature 97.7 F Pulse Rate Pulse Rate [ 66 Left] Respiratory 16 Rate Blood Pressure Blood Pressure 168/93 [Right Arm] O2 Sat by Pulse 95 Oximetry Medical Decision Making - Medical Decision Making This is a 77-year-old male who presents to the emergency department for abdominal pain. Was pt. sent in by a medical professional or institution? @ -No Did you speak to anyone other than the patient for history? @ -No Did you review nursing and triage notes? @ -Yes, and I agree, it is accurate with regards to the patient's symptoms. Were old charts reviewed? @ -No Differential Diagnosis? @ -Differential Abdominal Pain Men: Appendicitis, cholecystitis, diverticulosis, ischemic bowel, pancreatitis, hepatitis, UTI, gastroenteritis, AAA, incarcerated hernia, bowel obstruction, constipation, inflammatory bowel, hepatitis, peptic ulcer disease, splenic infarction, perforated viscus, testicular torsion, this is not meant to be an all-inclusive list EKG interpreted by me (3pts min.)? @ -EKG interpreted by me demonstrating the following: Atrial fibrillation with slow ventricular response. Ventricular rate 58 bpm, QRS duration 130 milliseconds, QTC 400 ms. X-rays interpreted by me (1pt min.)? @ -Not obtained CT interpreted by me (1pt min.)? @ -Computed tomography scan of the abdomen and pelvis obtained. My interpretation identifies dilation of the bowel loops in the left side of the abdomen. U/S interpreted by me (1pt. min.)? @ -Not obtained What testing was considered but not performed? (CT, X-rays, U/S, labs)? Why? @ -None What meds were considered but not given? Why? @ -None Did you discuss the management of the patient with other professionals? @ -Yes, Dr. Osei, who accepts the patient for admission. Did you reconcile home meds? @ -Yes Was smoking cessation discussed for >3mins.? @ -No Was critical care preformed (if so, how long)? @ -No Were there social determinants of health that impacted care today? How? (Homelessness, low income, unemployed, alcoholism, drug addiction, t ransportation, low edu. Level, literacy, decrease access to med. care, prison, rehab)? @ -No Was there de-escalation of care discussed even if they declined? (Discuss DNR or withdrawal of care, Hospice)? @ -No What co-morbidities impacted this encounter? (DM, HTN, Smoking, COPD, CAD, Cancer, CVA, Hep., AIDS, mental health diagnosis, sleep apnea, morbid obesity)? @ -DM, HLD, HTN, A-fib Was patient admitted / discharged? @ -Admitted. Lab work obtained and found to be nonactionable. Urinalysis negative for signs of infection. Computed tomography scan of the abdomen and pelvis obtained. Findings consistent with an ileus. This was reviewed with the patient. Discussed that this pain may be related to an ileus versus musculoskeletal process. Given the severity of the patient's pain, will admit to medicine with Gen. surgery consult for further input and evaluation. Undiagnosed new problem with uncertain prognosis? @ -None Drug Therapy requiring intensive monitoring for toxicity (Heparin, Nitro, Insu santana, Cardizem)? @ -None Were any procedures done? @ -None Diagnosis/symptom? @ -Ileus Acute, or Chronic, or Acute on Chronic? @ -Acute Uncomplicated (without systemic symptoms) or Complicated (systemic symptoms)? @ -Complicated Side effects of treatment? @ -None Exacerbation, Progression, or Severe Exacerbation] @ -Not applicable Poses a threat to life or bodily function? @ -Yes, the pain is having a large impact on his ability to function This case was discussed in detail with the attending ED physician, Dr. Leal. Presentation, findings, and treatment plan discussed in detail as well. - Lab Data Result diagrams: 01/30/23 09:25 01/30/23 09:25 Lab Results 01/30/23 01/30/23 01/30/23 Range/Units 09:25 09:25 09:25 WBC 9.6 (3.8-10.6) k/uL RBC 5.36 (4.30-5.90) m/uL Hgb 16.3 (13.0-17.5) gm/dL Hct 49.9 (39.0-53.0) % MCV 93.1 (80.0-100.0) fL MCH 30.4 (25.0-35.0) pg MCHC 32.6 (31.0-37.0) g/dL RDW 13.8 (11.5-15.5) % Plt Count 160 (150-450) k/uL MPV 7.6 Neutrophils % 81 % Lymphocytes % 9 % Monocytes % 6 % Eosinophils % 2 % Basophils % 0 % Neutrophils # 7.8 H (1.3-7.7) k/uL Lymphocytes # 0.9 L (1.0-4.8) k/uL Monocytes # 0.6 (0-1.0) k/uL Eosinophils # 0.2 (0-0.7) k/uL Basophils # 0.0 (0-0.2) k/uL Sodium 144 (137-145) mmol/L Potassium 4.6 (3.5-5.1) mmol/L Chloride 105 (98-107) mmol/L Carbon Dioxide 27 (22-30) mmol/L Anion Gap 12 mmol/L BUN 24 H (9-20) mg/dL Creatinine 1.21 (0.66-1.25) mg/dL Est GFR (CKD-EPI)AfAm 66 (>60 ml/min/1.73 sqM) Est GFR (CKD-EPI)NonAf 57 (>60 ml/min/1.73 sqM) Glucose 119 H (74-99) mg/dL Plasma Lactic Acid Moi (0.7-2.0) mmol/L Calcium 10.4 H (8.4-10.2) mg/dL Total Bilirubin 0.7 (0.2-1.3) mg/dL AST 24 (17-59) U/L ALT 14 (4-49) U/L Alkaline Phosphatase 93 (38-126) U/L Troponin I (0.000-0.034) ng/mL Total Protein 8.3 H (6.3-8.2) g/dL Albumin 4.8 (3.5-5.0) g/dL Amylase 50 (30-110) U/L Lipase 310 H (23-300) U/L Urine Color Light Yellow Urine Appearance Clear (Clear) Urine pH 6.5 (5.0-8.0) Ur Specific [place] 1.040 H (1.001-1.035) Urine Protein Trace H (Negative) Urine Glucose (UA) Negative (Negative) Urine Ketones 1+ H (Negative) Urine Blood Negative (Negative) Urine Nitrite Negative (Negative) Urine Bilirubin Negative (Negative) Urine Urobilinogen <2.0 (<2.0) mg/dL Ur Leukocyte Esterase Negative (Negative) 01/30/23 01/30/23 Range/Units 09:25 09:25 WBC (3.8-10.6) k/uL RBC (4.30-5.90) m/uL Hgb (13.0-17.5) gm/dL Hct (39.0-53.0) % MCV (80.0-100.0) fL MCH (25.0-35.0) pg MCHC (31.0-37.0) g/dL RDW (11.5-15.5) % Plt Count (150-450) k/uL MPV Neutrophils % % Lymphocytes % % Monocytes % % Eosinophils % % Basophils % % Neutrophils # (1.3-7.7) k/uL Lymphocytes # (1.0-4.8) k/uL Monocytes # (0-1.0) k/uL Eosinophils # (0-0.7) k/uL Basophils # (0-0.2) k/uL Sodium (137-145) mmol/L Potassium (3.5-5.1) mmol/L Chloride (98-107) mmol/L Carbon Dioxide (22-30) mmol/L Anion Gap mmol/L BUN (9-20) mg/dL Creatinine (0.66-1.25) mg/dL Est GFR (CKD-EPI)AfAm (>60 ml/min/1.73 sqM) Est GFR (CKD-EPI)NonAf (>60 ml/min/1.73 sqM) Glucose (74-99) mg/dL Plasma Lactic Acid Moi 1.1 (0.7-2.0) mmol/L Calcium (8.4-10.2) mg/dL Total Bilirubin (0.2-1.3) mg/dL AST (17-59) U/L ALT (4-49) U/L Alkaline Phosphatase (38-126) U/L Troponin I <0.012 (0.000-0.034) ng/mL Total Protein (6.3-8.2) g/dL Albumin (3.5-5.0) g/dL Amylase (30-110) U/L Lipase (23-300) U/L Urine Color Urine Appearance (Clear) Urine pH (5.0-8.0) Ur Specific [place] (1.001-1.035) Urine Protein (Negative) Urine Glucose (UA) (Negative) Urine Ketones (Negative) Urine Blood (Negative) Urine Nitrite (Negative) Urine Bilirubin (Negative) Urine Urobilinogen (<2.0) mg/dL Ur Leukocyte Esterase (Negative) - Radiology Data Radiology results: report reviewed, image reviewed Disposition Clinical Impression: Ileus, Abdominal pain Disposition: ADMITTED IP TO THIS HOSP
[2023-01-30 09:37] LABS: Basophils % (A) 0 %; Eosinophils # (A) 0.2 k/uL (0-0.7); Eosinophils % (A) 2 %; HCT 49.9 % (39.0-53.0); HGB 16.3 gm/dL (13.0-17.5); Lymphocytes # (A) 0.9 k/uL (1.0-4.8); Lymphocytes % (A) 9 %; MCH 30.4 pg (25.0-35.0); MCHC 32.6 g/dL (31.0-37.0); MCV 93.1 fL (80.0-100.0); Mean Platelet Volume 7.6; Monocytes # (A) 0.6 k/uL (0-1.0); Monocytes % (A) 6 %; Neutrophils # (A) 7.8 k/uL (1.3-7.7); Neutrophils % (A) 81 %; Platelet Count 160 k/uL (150-450); RBC 5.36 m/uL (4.30-5.90); RDW 13.8 % (11.5-15.5); WBC 9.6 k/uL (3.8-10.6)
[2023-01-30 09:49] LABS: ALT 14 U/L (4-49); AST 24 U/L (17-59); African American GFR (CKD) 66 (>60 ml/min/1.73 sqM); Albumin 4.8 g/dL (3.5-5.0); Alkaline Phosphatase 93 U/L (38-126); Amylase 50 U/L (30-110); Anion Gap 12 mmol/L; Blood Urea Nitrogen 24 mg/dL (9-20); Calcium 10.4 mg/dL (8.4-10.2); Carbon Dioxide 27 mmol/L (22-30); Chloride 105 mmol/L (98-107); Glucose 119 mg/dL (74-99); Lipase 310 U/L (23-300); Non-African American GFR(CKD) 57 (>60 ml/min/1.73 sqM); Potassium 4.6 mmol/L (3.5-5.1); Sodium 144 mmol/L (137-145); Total Bilirubin 0.7 mg/dL (0.2-1.3); Total Protein 8.3 g/dL (6.3-8.2)
--- NOTE | 2023-01-30 11:07 | CT ---
EXAMINATION TYPE: CT abdomen pelvis w con DATE OF EXAM: 01/30/2023 COMPARISON: 01/28/2019 INDICATION: Rt side abdominal pain, Hx appy, marie, hernia repair. DLP: 1016.9 mGycm, Automated exposure control for dose reduction was used. CONTRAST: 80 mL of Isovue 300. Study performed without Oral Contrast TECHNIQUE: Axial images were obtained from above the diaphragm to the pubic rami in the axial plane a t 5 mm thick sections. Reconstructed images are reviewed on the computer in the coronal plane. FINDINGS: Limited CT sections are obtained the lung bases. Mild compressive atelectasis in the dependent lung bases. CT ABDOMEN: Liver: Normal Spleen: Normal Pancreas: Normal Adrenal glands: Left adrenal gland is enlarged with low density measuring 2.0 cm. Right adrenal gland appears normal Gallbladder: Surgically absent Kidneys: No masses are evident. No hydronephrosis is present. No cysts are present. Delayed images were obtained through the kidneys, which remain unremarkable. Aorta: Vascular calcification is within the aorta. Inferior vena cava: Normal. CT PELVIS: Diverticulosis without acute diverticulitis is within the sigmoid colon. There is somewhat prominent small bowel loops within the left lower quadrant and left abdomen. Correlate for ileus. Distal small bowel loops appear normal. Fecal debris is through the colon. Appendix: Not identified compatible with surgery history. No dilated tubular structure or inflammator y changes are evident. Urinary bladder: Normal. Genitourinary structures: Prostate is prominent. Osseous structures: There is a 1.9 cm sclerotic area above the left acetabulum. This appears stable f rom comparison. Facet degenerative changes are within the lumbar spine. IMPRESSIONS: 1. Mild compressive atelectasis dependent lung bases. 2. Low density 2 cm area within the left adrenal gland likely benign. 3. Diverticulosis without acute diverticulitis.
[2023-01-30] MEDS ORDERED: MORPHINE SULFATE 2 MG/ML SYRINGE IVP STA (12:29)
[2023-01-30] MEDS ORDERED: SODIUM CHLORIDE 0.9% 1,000 ML IV STA (12:29)
[2023-01-30 12:37] LABS: Appearance,Urine Clear (Clear); Bilirubin,Urine Negative (Negative); Blood,Urine Negative (Negative); Color,Urine Light Yellow; Glucose,Urine (UA) Negative (Negative); Ketones,Urine 1+ (Negative); Leukocyte Esterase,Urine Negative (Negative); Nitrite,Urine Negative (Negative); PH, Urine 6.5 (5.0-8.0); Protein,Urine Trace (Negative); Urobilinogen,Urine <2.0 mg/dL (<2.0)
[2023-01-30] MEDS ORDERED: HYDROmorphone 1 MG/ML 1 ML SYRINGE IVP PRN (12:52)
[2023-01-30] MEDS ORDERED: ONDANSETRON 4 MG/2 ML VIAL IVP PRN (12:52)
[2023-01-30] MEDS ORDERED: ACETAMINOPHEN TAB 325 MG TAB PO PRN (12:52)
[2023-01-30] MEDS ORDERED: HYDROmorphone 0.5 MG/0.5 ML SYRINGE IVP PRN (12:52)
[2023-01-30] MEDS ORDERED: NALOXONE 0.4 MG/ML 1 ML VIAL IV PRN (12:52)
[2023-01-30] MEDS: DOCUSATE 100 MG CAP PO SCH ×2 (14:43→22:58)
[2023-01-30 16:32] LABS: Glucose,Whole Blood 93 mg/dL (70-110)
[2023-01-30] MEDS ORDERED: SENNOSIDES 8.6 MG TAB PO SCH (21:00)
[2023-01-30] MEDS: APIXABAN 5 MG TAB PO SCH (22:57)
[2023-01-30] MEDS: ATORVASTATIN 40 MG TAB PO SCH (22:58)
--- NOTE | 2023-01-31 00:11 | P.HPIM ---
History of Present Illness This is a pleasant 77 years old male with multiple medical problems including chronic atrial fibrillation on a blood thinner on eliquis and he follows up with Dr. Soriano. His PCP is Dr. Antunez Other chronic medical problems including hypertension, type 2 diabetes and hyperlipidemia. Patient presents because of abdominal pain for 2 weeks on and off mainly on the right side, yesterday he was working a lot and outside and the balloon his grass by dinner time he felt severe pain and he could not get up from his bed pain mainly in the right side of the umbilicus, nonradiating felt like sharp increase by movement with no relieving factors. No association with vomiting or diarrhea. Patient says that he has loose stool for the last 3-4 years after he had gallbladder taken out with no recent changes. No fever. No chest pain dyspnea coughing. No urinary symptoms like urgency or dysuria. No headache dizziness weakness or numbness. Patient denies smoking alcohol or illicit drugs. Review of Systems Review of systems CONSTITUTIONAL: No fever, no malaise, no fatigue. HEENT: No recent visual problems or hearing problems. Denied any sore throat. CARDIOVASCULAR: No orthopnea, PND, no palpitations, no syncope. PULMONARY: No shortness of breath, no cough, no hemoptysis. GASTROINTESTINAL: No diarrhea, no nausea, no vomiting, no abdominal pain. Normoactive bowel sounds. NEUROLOGICAL: No headaches, no weakness, no numbness. HEMATOLOGICAL: Denies any bleeding or petechiae. GENITOURINARY: Denies any burning micturition, frequency, or urgency. MUSCULOSKELETAL/RHEUMATOLOGICAL: Denies any joint pain, swelling, or any muscle pain. ENDOCRINE: Denies any polyuria or polydipsia. Past Medical History Past Medical History: Diabetes Mellitus, GERD/Reflux, Hyperlipidemia, Hypertension Additional Past Medical History / Comment(s): "borderline diabetic", History of Any Multi-Drug Resistant Organisms: None Reported Past Surgical History: Appendectomy, Cholecystectomy, Hernia Repair Additional Past Surgical History / Comment(s): hernia surgery x 3, Past Anesthesia/Blood Transfusion Reactions: No Reported Reaction Past Psychological History: No Psychological Hx Reported Smoking Status: Former smoker Past Alcohol Use History: None Reported Past Drug Use History: None Reported - Past Family History Mother Family Medical History: Cancer Medications and Allergies Home Medications Medication Instructions Recorded Confirmed Type RX: amLODIPine BESYLATE/BENAZEPRIL 1 cap PO DAILY 11/19/16 01/30/23 History [Lotrel 10-20 MG] RX: sitaGLIPtin [Januvia] 100 mg PO DAILY 11/19/16 01/30/23 History RX: Timolol 0.5% Ophth Soln 1 drop BOTH EYES DAILY 01/28/19 01/30/23 History [Timoptic 0.5% Ophth Soln] RX: Apixaban [Eliquis] 5 mg PO BID 30 Days #60 tab 01/05/22 01/30/23 Rx RX: Multivitamins, Thera 1 tab PO DAILY 04/14/22 01/30/23 History [Multivitamin (formulary)] Atorvastatin [Lipitor] 40 mg PO HS 01/30/23 01/30/23 History Allergies Allergy/AdvReac Type Severity Reaction Status Date / Time No Known Allergies Allergy Verified 01/30/23 12:58 Physical Exam Vitals: Vital Signs Temp Pulse Resp BP Pulse Ox 01/30/23 12:40 60 18 140/96 94 L 01/30/23 10:39 74 18 127/80 94 L 01/30/23 09:03 97.7 F 65 20 151/78 96 Intake and Output 01/29/23 01/30/23 01/30/23 22:59 06:59 14:59 Other: Weight 74.843 kg GENERAL: The patient is alert and oriented x3, not in any acute distress. Well developed, well nourished. HEENT: Pupils are round and equally reacting to light. EOMI. No scleral icterus. No conjunctival pallor. Normocephalic, atraumatic. No pharyngeal erythema. No thyromegaly. CARDIOVASCULAR: S1 and S2 present. No murmurs, rubs, or gallops. PULMONARY: Chest is clear to auscultation, no wheezing , no crackles. -ABDOMEN: Soft, mild right-sided abdominal tenderness with no guarding or rebound tenderness, nondistended, normoactive bowel sounds. No palpable organomegaly. MUSCULOSKELETAL: No joint swelling or deformity. EXTREMITIES: No cyanosis, clubbing, or pedal edema. NEUROLOGICAL: Gross neurological examination did not reveal any focal deficits. SKIN: No rashes. no petechiae. Results CBC & Chem 7: 01/30/23 09:25 01/30/23 09:25 Labs: Abnormal Lab Results - Last 24 Hours (Table) 01/30/23 01/30/23 01/30/23 Range/Units 09:25 09:25 09:25 Neutrophils # 7.8 H (1.3-7.7) k/uL Lymphocytes # 0.9 L (1.0-4.8) k/uL BUN 24 H (9-20) mg/dL Glucose 119 H (74-99) mg/dL Calcium 10.4 H (8.4-10.2) mg/dL Total Protein 8.3 H (6.3-8.2) g/dL Lipase 310 H (23-300) U/L Ur Specific [place] 1.040 H (1.001-1.035) Urine Protein Trace H (Negative) Urine Ketones 1+ H (Negative) Assessment and Plan Assessment: Right side Abdominal pain CT of the abdomen, Prominent bowel loops suspicious for ileus Diabetes mellitus Hypertension Hyperlipidemia History of osteoarthritis Hypothyroidism History of sleep apnea on CPAP/BiPAP Plan: Pain management Check for C. diff Advance diet as tolerated Surgery consult Labs and medication were reviewed.. Continue same treatment. Continue with symptomatic treatment. Resume home medication. Monitor labs and vitals. DVT and GI prophylaxis. Further recommendations as per clinical course of the patient DVT prophylaxis: Subcutaneous heparin GI Prophylaxis: Pepcid PT/OT: Pending Prognosis is guarded
[2023-01-31 08:42] LABS: ALT 14 U/L (4-49); AST 24 U/L (17-59); African American GFR (CKD) >90 (>60 ml/min/1.73 sqM); Albumin 4.1 g/dL (3.5-5.0); Albumin/Globulin Ratio 1.3; Alkaline Phosphatase 82 U/L (38-126); Anion Gap 9 mmol/L; Bilirubin,Unconjugated 0.6 mg/dL (0.0-1.1); Blood Urea Nitrogen 18 mg/dL (9-20); Calcium 9.2 mg/dL (8.4-10.2); Carbon Dioxide 28 mmol/L (22-30); Chloride 103 mmol/L (98-107); Globulin 3.1 g/dL; Glucose 155 mg/dL (74-99); Non-African American GFR(CKD) 79 (>60 ml/min/1.73 sqM); Potassium 4.6 mmol/L (3.5-5.1); Sodium 140 mmol/L (137-145); Total Bilirubin 0.8 mg/dL (0.2-1.3); Total Protein 7.2 g/dL (6.3-8.2)
[2023-01-31 08:46] LABS: Basophils % (A) 0 %; Eosinophils # (A) 0.1 k/uL (0-0.7); Eosinophils % (A) 2 %; HCT 48.9 % (39.0-53.0); HGB 15.9 gm/dL (13.0-17.5); Lymphocytes # (A) 0.8 k/uL (1.0-4.8); Lymphocytes % (A) 8 %; MCH 30.2 pg (25.0-35.0); MCHC 32.5 g/dL (31.0-37.0); Mean Platelet Volume 7.5; Monocytes # (A) 0.5 k/uL (0-1.0); Monocytes % (A) 5 %; Neutrophils # (A) 7.5 k/uL (1.3-7.7); Neutrophils % (A) 83 %; Platelet Count 167 k/uL (150-450); RBC 5.26 m/uL (4.30-5.90); RDW 13.8 % (11.5-15.5)
[2023-01-31] MEDS: amLODIPine 10 MG TAB PO SCH (09:01)
[2023-01-31] MEDS: LINAGLIPTIN 5 MG TABLET PO SCH (09:01)
[2023-01-31] MEDS: APIXABAN 5 MG TAB PO SCH ×2 (09:01→21:30)
[2023-01-31] MEDS: MULTIVITAMINS, THERA 1 EACH TAB PO SCH (09:01)
[2023-01-31] MEDS: lisinopriL 20 MG TAB PO SCH (09:01)
[2023-01-31] MEDS: FAMOTIDINE 20 MG/2 ML VIAL IV SCH (10:00)
--- NOTE | 2023-01-31 10:21 | P.GSCN ---
History of Present Illness Consult date: 01/31/23 Reason for Consult: Abdominal pain History of present illness: 77-year-old male comes in the hospital planning pain right chest wall/upper abdo men. Says this started about a week ago after he was moving too lawnchair's. Symptoms aggravated by movement. Especially twisting side to side. No recent fall. No history of trauma there. He does have history of previous cholecystectomy and appendectomy. CAT scan shows no obvious abnormalities to explain his discomfort. No nausea or vomiting. Some loose stools chronically. Denies rectal bleeding or melena. patient's lab values are fairly unimpressive. Review of Systems The patient denies any acute changes in vision or hearing, no dysphagia or odynophagia, no shortness of breath, no dysuria or hematuria, no headache, no runny nose, no rectal bleeding or melena, no unexplained weight loss Past Medical History Past Medical History: Diabetes Mellitus, GERD/Reflux, Hyperlipidemia, Hypertension Additional Past Medical History / Comment(s): "borderline diabetic", History of Any Multi-Drug Resistant Organisms: None Reported Past Surgical History: Appendectomy, Cholecystectomy, Hernia Repair Additional Past Surgical History / Comment(s): hernia surgery x 3, Past Anesthesia/Blood Transfusion Reactions: No Reported Reaction Past Psychological History: No Psychological Hx Reported Smoking Status: Former smoker Past Alcohol Use History: None Reported Past Drug Use History: None Reported - Past Family History Mother Family Medical History: Cancer Medications and Allergies Home Medications Medication Instructions Recorded Confirmed Type amLODIPine BESYLATE/BENAZEPRIL 1 cap PO DAILY 11/19/16 01/30/23 History [Lotrel 10-20 MG] sitaGLIPtin [Januvia] 100 mg PO DAILY 11/19/16 01/30/23 History Timolol 0.5% Ophth Soln [Timoptic 1 drop BOTH EYES DAILY 01/28/19 01/30/23 Hist ory 0.5% Ophth Soln] Apixaban [Eliquis] 5 mg PO BID 30 Days #60 tab 01/05/22 01/30/23 Rx Multivitamins, Thera [Multivitamin 1 tab PO DAILY 04/14/22 01/30/23 History (formulary)] Atorvastatin [Lipitor] 40 mg PO HS 01/30/23 01/30/23 History Allergies Allergy/AdvReac Type Severity Reaction Status Date / Time No Known Allergies Allergy Verified 01/30/23 12:58 Surgical - Exam Vital Signs Temp Pulse Resp BP Pulse Ox 97.7 F 65 20 151/78 96 01/30/23 09:03 01/30/23 09:03 01/30/23 09:03 01/30/23 09:03 01/30/23 09:03 Physical exam: General: Well-developed, well-nourished HEENT: Normocephalic, sclerae nonicteric Abdomen: Mild tenderness right lower chest wall/costal margin, nondistended Extremities: No edema Neuro: Alert and oriented Results - Labs 01/31/23 08:05 01/31/23 08:05 Abnormal Lab Results - Last 24 Hours (Table) 01/30/23 01/31/23 01/31/23 Range/Units 09:25 08:05 08:05 Lymphocytes # 0.8 L (1.0-4.8) k/uL Glucose 155 H (74-99) mg/dL Ur Specific [place] 1.040 H (1.001-1.035) Urine Protein Trace H (Negative) Urine Ketones 1+ H (Negative) Diabetes panel 01/31/23 Range/Units 08:05 Sodium 140 (137-145) mmol/L Potassium 4.6 (3.5-5.1) mmol/L Chloride 103 (98-107) mmol/L Carbon Dioxide 28 (22-30) mmol/L BUN 18 (9-20) mg/dL Creatinine 0.92 (0.66-1.25) mg/dL Glucose 155 H (74-99) mg/dL Calcium 9.2 (8.4-10.2) mg/dL AST 24 (17-59) U/L ALT 14 (4-49) U/L Alkaline Phosphatase 82 (38-126) U/L Total Protein 7.2 (6.3-8.2) g/dL Albumin 4.1 (3.5-5.0) g/dL Calcium panel 01/31/23 Range/Units 08:05 Calcium 9.2 (8.4-10.2) mg/dL Albumin 4.1 (3.5-5.0) g/dL Pituitary panel 01/31/23 Range/Units 08:05 Sodium 140 (137-145) mmol/L Potassium 4.6 (3.5-5.1) mmol/L Chloride 103 (98-107) mmol/L Carbon Dioxide 28 (22-30) mmol/L BUN 18 (9-20) mg/dL Creatinine 0.92 (0.66-1.25) mg/dL Glucose 155 H (74-99) mg/dL Calcium 9.2 (8.4-10.2) mg/dL Adrenal panel 01/31/23 Range/Units 08:05 Sodium 140 (137-145) mmol/L Potassium 4.6 (3.5-5.1) mmol/L Chloride 103 (98-107) mmol/L Carbon Dioxide 28 (22-30) mmol/L BUN 18 (9-20) mg/dL Creatinine 0.92 (0.66-1.25) mg/dL Glucose 155 H (74-99) mg/dL Calcium 9.2 (8.4-10.2) mg/dL Total Bilirubin 0.8 (0.2-1.3) mg/dL AST 24 (17-59) U/L ALT 14 (4-49) U/L Alkaline Phosphatase 82 (38-126) U/L Total Protein 7.2 (6.3-8.2) g/dL Albumin 4.1 (3.5-5.0) g/dL Assessment and Plan (1) Abdominal pain Narrative/Plan: 77-year-old male with right-sided chest pain. This sounds by history to be more consistent with a musculoskeletal source of discomfort. CAT scan reviewed. No obvious abnormalities. Continue diet. Will follow. Current Visit: Yes Status: Acute Code(s): R10.9 - UNSPECIFIED ABDOMINAL PAIN SNOMED Code(s): 73890953
[2023-01-31] MEDS: TIMOLOL 0.5% OPHTH DROPS 5 ML BTL BOTH EYES SCH (11:09)
[2023-01-31] MEDS: HYDROcodone/APAP 5-325MG 1 EACH TAB PO PRN ×2 (11:13→21:30)
--- NOTE | 2023-01-31 13:07 | P.PN ---
Subjective This is a pleasant 77 years old male with multiple medical problems including chronic atrial fibrillation on a blood thinner on eliquis and he follows up with Dr. Soriano. His PCP is Dr. Antunez Other chronic medical problems including hypertension, type 2 diabetes and hyperlipidemia. Patient presents because of abdominal pain for 2 weeks on and off mainly on the right side, yesterday he was working a lot and outside and the balloon his grass by dinner time he felt severe pain and he could not get up from his bed pain mainly in the right side of the umbilicus, nonradiating felt like sharp increase by movement with no relieving factors. No association with vomiting or diarrhea. Patient says that he has loose stool for the last 3-4 years after he had gallbladder taken out with no recent changes. No fever. No chest pain dyspnea coughing. No urinary symptoms like urgency or dysuria. No headache dizziness weakness or numbness. Patient denies smoking alcohol or illicit drugs. 01/31/2023 Patient still complains from pain on his right side, first he touches chest referred to the pain but when I ask him again he starts his right upper quadrant abdominal. Tenderness is mild bilateral pain is bothering the patient especially when he tried to move or twists in bed area no significant tenderness but it has features of musculoskeletal pain. Surgery team it's think more its musculoskeletal. Patient denies history of trauma. Hemodynamically labs are stable and patient tolerates diet well and patient with no other significant abnormality. He eats 50-75% of his meals We'll check r right side ibt x-ray Chasity has been admitted for pain control Objective - Vital Signs Vital signs: Vital Signs Temp 99.5 F 01/31/23 07:49 Pulse 70 01/31/23 07:49 Resp 20 01/31/23 07:49 BP 132/76 01/31/23 07:49 Pulse Ox 98 01/31/23 07:49 FiO2 Intake & Output 01/30/23 01/31/23 01/31/23 18:59 06:59 18:59 Weight 74.843 kg Other: # Voids 0 2 - Exam GENERAL: The patient is alert and oriented x3, not in any acute distress. Well developed, well nourished. HEENT: Pupils are round and equally reacting to light. EOMI. No scleral icterus. No conjunctival pallor. Normocephalic, atraumatic. No pharyngeal erythema. No thyromegaly. CARDIOVASCULAR: S1 and S2 present. No murmurs, rubs, or gallops. PULMONARY: Chest is clear to auscultation, no wheezing , no crackles. ABDOMEN: Soft, nontender, nondistended, normoactive bowel sounds. No palpable organomegaly. MUSCULOSKELETAL: No joint swelling or deformity. EXTREMITIES: No cyanosis, clubbing, or pedal edema. NEUROLOGICAL: Gross neurological examination did not reveal any focal deficits. SKIN: No rashes. no petechiae. - Labs CBC & Chem 7: 01/31/23 08:05 01/31/23 08:05 Labs: Abnormal Lab Results - Last 24 Hours (Table) 01/31/23 01/31/23 Range/Units 08:05 08:05 Lymphocytes # 0.8 L (1.0-4.8) k/uL Glucose 155 H (74-99) mg/dL Assessment and Plan Assessment: Right side Abdominal pain CT of the abdomen, Prominent bowel loops suspicious for ileus Diabetes mellitus Hypertension Hyperlipidemia History of osteoarthritis Hypothyroidism History of sleep apnea on CPAP/BiPAP Plan: Pain management Check. X-ray Advance diet as tolerated Surgery consult Labs and medication were reviewed.. Continue same treatment. Continue with symptomatic treatment. Resume home medication. Monitor labs and vitals. DVT and GI prophylaxis. Further recommendations as per clinical course of the patient DVT prophylaxis: Subcutaneous heparin GI Prophylaxis: Pepcid PT/OT: Pending Prognosis is guarded
--- NOTE | 2023-01-31 13:46 | XR ---
EXAMINATION TYPE: XR ribs RT DATE OF EXAM: 01/31/2023 COMPARISON: Right-sided pain HISTORY: Right-sided rib pain with movement TECHNIQUE: Right ribs examined in 2 projections FINDINGS: No acute or subacute fractures are identified and no pneumothorax is evident. IMPRESSION: 1. No acute osseous abnormality right ribs
[2023-01-31] MEDS: ATORVASTATIN 40 MG TAB PO SCH (21:30)
[2023-02-01] MEDS: FAMOTIDINE 20 MG/2 ML VIAL IV SCH (08:59)
[2023-02-01] MEDS: MULTIVITAMINS, THERA 1 EACH TAB PO SCH (08:59)
[2023-02-01] MEDS: TIMOLOL 0.5% OPHTH DROPS 5 ML BTL BOTH EYES SCH (09:00)
[2023-02-01] MEDS: LINAGLIPTIN 5 MG TABLET PO SCH (09:00)
[2023-02-01] MEDS: amLODIPine 10 MG TAB PO SCH (09:00)
[2023-02-01] MEDS: APIXABAN 5 MG TAB PO SCH ×2 (09:00→20:45)
[2023-02-01] MEDS: lisinopriL 20 MG TAB PO SCH (09:00)
[2023-02-01] MEDS ORDERED: KETOROLAC 15 MG/ML 1 ML VIAL IVP STA ×2 (09:27→21:31)
--- NOTE | 2023-02-01 10:56 | P.PN ---
Subjective Progress Note Date: 02/01/23 Principal diagnosis: Pain Patient still having right-sided pain although says it's improved. Again points to the lower chest region. Rib x-rays showed no definite abnormality. Denies rash. Objective - Vital Signs Vital signs: Vital Signs Temp 98.5 F 02/01/23 06:59 Pulse 56 L 02/01/23 06:59 Resp 15 02/01/23 06:59 BP 133/72 02/01/23 06:59 Pulse Ox 97 02/01/23 06:59 FiO2 Intake & Output 01/31/23 02/01/23 02/01/23 18:59 06:59 18:59 Other: # Voids 2 2 # Bowel Movements 1 - Exam Mild tenderness right lower chest wall laterally, no crepitus, no skin changes or rash - Labs CBC & Chem 7: 01/31/23 08:05 01/31/23 08:05 Assessment and Plan (1) Abdominal pain Narrative/Plan: Patient right-sided pain. Pain started after moving heavy furniture. Suspect musculoskeletal source. No further general surgery plans at this time. We'll sign off. Please call if needed. Current Visit: Yes Status: Acute Code(s): R10.9 - UNSPECIFIED ABDOMINAL PAIN SNOMED Code(s): 45114400
[2023-02-01] MEDS: HYDROcodone/APAP 5-325MG 1 EACH TAB PO PRN (20:45)
[2023-02-01] MEDS: ATORVASTATIN 40 MG TAB PO SCH (20:45)
[2023-02-01] MEDS ORDERED: IBUPROFEN 400 MG TAB PO PRN (21:33)
--- NOTE | 2023-02-01 23:36 | P.PN ---
Subjective This is a pleasant 77 years old male with multiple medical problems including chronic atrial fibrillation on a blood thinner on eliquis and he follows up with Dr. Soriano. His PCP is Dr. Antunez Other chronic medical problems including hypertension, type 2 diabetes and hyperlipidemia. Patient presents because of abdominal pain for 2 weeks on and off mainly on the right side, yesterday he was working a lot and outside and the balloon his grass by dinner time he felt severe pain and he could not get up from his bed pain mainly in the right side of the umbilicus, nonradiating felt like sharp increase by movement with no relieving factors. No association with vomiting or diarrhea. Patient says that he has loose stool for the last 3-4 years after he had gallbladder taken out with no recent changes. No fever. No chest pain dyspnea coughing. No urinary symptoms like urgency or dysuria. No headache dizziness weakness or numbness. Patient denies smoking alcohol or illicit drugs. 01/31/2023 Patient still complains from pain on his right side, first he touches chest referred to the pain but when I ask him again he starts his right upper quadrant abdominal. Tenderness is mild bilateral pain is bothering the patient especially when he tried to move or twists in bed area no significant tenderness but it has features of musculoskeletal pain. Surgery team it's think more its musculoskeletal. Patient denies history of trauma. Hemodynamically labs are stable and patient tolerates diet well and patient with no other significant abnormality. He eats 50-75% of his meals We'll check r right side ibt x-ray Chasity has been admitted for pain control 02/01/2023 I examined patient today very carefully his main pain and tenderness is at the lower rib cage at the area of the cartilage. His pain comes in with extended twisting on either side right or left. It has no relation to food or to exertion. Patient to Undergo test is normal. Patient with no significant urinary symptoms. Tenderness that well. Vital signs stable Rib x-rays negative. Surgery team signed off the case Most likely patient has musculoskeletal pain We will try Toradol today and consents benefits and rest tomorrow. Expect discharge soon with improvement Objective - Vital Signs Vital signs: Vital Signs Temp 97.8 F 02/01/23 20:00 Pulse 63 02/01/23 20:00 Resp 16 02/01/23 13:45 BP 116/72 02/01/23 20:00 Pulse Ox 96 02/01/23 20:00 FiO2 Intake & Output 02/01/23 02/01/23 02/02/23 06:59 18:59 06:59 Other: # Voids 2 3 - Exam GENERAL: The patient is alert and oriented x3, not in any acute distress. Well developed, well nourished. HEENT: Pupils are round and equally reacting to light. EOMI. No scleral icterus. No conjunctival pallor. Normocephalic, atraumatic. No pharyngeal erythema. No th yromegaly. CARDIOVASCULAR: S1 and S2 present. No murmurs, rubs, or gallops. PULMONARY: Chest is clear to auscultation, no wheezing , no crackles. ABDOMEN: Soft, nontender, nondistended, normoactive bowel sounds. No palpable organomegaly. MUSCULOSKELETAL: No joint swelling or deformity. EXTREMITIES: No cyanosis, clubbing, or pedal edema. NEUROLOGICAL: Gross neurological examination did not reveal any focal deficits. SKIN: No rashes. no petechiae. - Labs CBC & Chem 7: 01/31/23 08:05 01/31/23 08:05 Labs: Abnormal Lab Results - Last 24 Hours (Table) 01/31/23 Range/Units 00:09 Stool Lactoferrin Positive A (Negative) Assessment and Plan Assessment: Acute Right costochondritis Right side Abdominal pain , improvement CT of the abdomen, Prominent bowel loops suspicious for ileus Diabetes mellitus Hypertension Hyperlipidemia History of osteoarthritis Hypothyroidism History of sleep apnea on CPAP/BiPAP Plan: Pain management: DC [place]. DC Dilaudid (patient was not taking it), Give 1-2 doses of Toradol and assess benefits versus tolerance and side effects. Ibuprofen when necessary On regular diet. Patient tolerated well Surgery consult. Signs of the case Labs and medication were reviewed.. Continue same treatment. Continue with symptomatic treatment. Resume home medication. Monitor labs and vitals. DVT and GI prophylaxis. Further recommendations as per clinical course of the patient DVT prophylaxis: Subcutaneous heparin GI Prophylaxis: Changed to Protonix twice a day PT/OT: Pending
[2023-02-02 07:17] VITALS: BP 135/71; PULSE 50; RESP 17; TEMP 98
[2023-02-02] MEDS ORDERED: PANTOPRAZOLE 40 MG TABLET PO SCH (07:30)
[2023-02-02] MEDS: FAMOTIDINE 20 MG/2 ML VIAL IV SCH (08:05)
[2023-02-02] MEDS: lisinopriL 20 MG TAB PO SCH (09:20)
[2023-02-02] MEDS: APIXABAN 5 MG TAB PO SCH (09:20)
[2023-02-02] MEDS: amLODIPine 10 MG TAB PO SCH (09:20)
[2023-02-02] MEDS: LINAGLIPTIN 5 MG TABLET PO SCH (09:20)
[2023-02-02] MEDS: MULTIVITAMINS, THERA 1 EACH TAB PO SCH (09:20)
[2023-02-02] MEDS: TIMOLOL 0.5% OPHTH DROPS 5 ML BTL BOTH EYES SCH (09:20)
--- NOTE | 2023-02-18 14:59 | P.DS ---
Providers Date of admission: 01/30/23 13:22 Attending physician: Dustin Osei MD Consults: 01/30/23 12:52 Consult Physician Urgent Consulting Provider: Liam Stevenson Reason/Comments: Ileus Do you want consulting provider notified?: Yes Primary care physician: Eleazar Tolentino [place] [facility] Course: diangnoses: Acute Right costochondritis Right side Abdominal pain , improvement CT of the abdomen, Prominent bowel loops suspicious for ileus, resolved Diabetes mellitus Hypertension Hyperlipidemia History of osteoarthritis Hypothyroidism History of sleep apnea on CPAP/BiPAP hospital course; This is a pleasant 77 years old male with multiple medical problems including chronic atrial fibrillation on a blood thinner on eliquis and he follows up with Dr. Soriano. His PCP is Dr. Tolentino Other chronic medical problems including hypertension, type 2 diabetes and hyperlipidemia. Patient presents because of abdominal pain for 2 weeks on and off mainly on the right side, yesterday he was working a lot and outside and the balloon his grass by dinner time he felt severe pain and he could not get up from his bed pain mainly in the right side of the umbilicus, nonradiating felt like sharp increase by movement with no relieving factors. No association with vomiting or diarrhea. ct of abdomen and pelvis: mild atelectasis, low density 2 cm area within the left adrenal gland, likely benign, and diverticulsis withouit acute diverticulitis, somewhat prominant small bowel loops with the left loewr quadrant and left abdomen, correlate for ileus pt was evaluated by both cardilogist and surgical team , his symptoms improved , upon discharge he has no other chest pain or abdominal pain, his pain is mainly in the right lower rib cage with point tenderness at the cartilage area, right side ribt x-ray is negative pt get up and go test is normal , no other new complaint and he wants to go home today Patient was cleared for discharge by cardiology and surgery teams Problems and management plan were discussed with the patient and he verbalized understanding and acceptance Patient was found stable and can be discharged home in guarded prognosis however he needs follow-up as an outpatient. Patient was instructed to follow up with PCP Dr. Tolentino within one week and patient agrees Patient was instructed to follow up with his urologist Dr. cadet in 1-2 weeks and he agrees pt was instructed to follow up with cardiolgist dr. chappell in 1-2 weeks and he agrees Physical exam Gen: patient is a AAOx3, no distress CVS: S1-S2, RRR, no murmur -Lungs: B/L CTA, no wheezing. point tenderness in right lower rib cage with point tenderness at the cartilage area Abdomen: soft, no distention, no tenderness, positive bowel sounds Extremity: no leg edema or induration Time spent more than 35 minutes Plan - Discharge Summary Discharge Rx Participant: No New Discharge Prescriptions: New RX: Pantoprazole [Protonix] 40 mg PO AC-BID #50 tab RX: Ibuprofen [Motrin] 400 mg PO Q6HR PRN 3 Days #12 tab PRN Reason: Pain Continue RX: sitaGLIPtin [Januvia] 100 mg PO DAILY RX: amLODIPine BESYLATE/BENAZEPRIL [Lotrel 10-20 MG] 1 cap PO DAILY RX: Timolol 0.5% Ophth Soln [Timoptic 0.5% Ophth Soln] 1 drop BOTH EYES DAILY RX: Multivitamins, Thera [Multivitamin (formulary)] 1 tab PO DAILY RX: Atorvastatin [Lipitor] 40 mg PO HS RX: Apixaban [Eliquis] 5 mg PO BID 30 Days #60 tab Discharge Medication List RX: amLODIPine BESYLATE/BENAZEPRIL [Lotrel 10-20 MG] 1 cap PO DAILY 11/19/16 [History] RX: sitaGLIPtin [Januvia] 100 mg PO DAILY 11/19/16 [History] RX: Timolol 0.5% Ophth Soln [Timoptic 0.5% Ophth Soln] 1 drop BOTH EYES DAILY 01/28/19 [History] RX: Apixaban [Eliquis] 5 mg PO BID 30 Days #60 tab 01/05/22 [Rx] RX: Multivitamins, Thera [Multivitamin (formulary)] 1 tab PO DAILY 04/14/22 [History] RX: Atorvastatin [Lipitor] 40 mg PO HS 01/30/23 [History] RX: Ibuprofen [Motrin] 400 mg PO Q6HR PRN 3 Days #12 tab 02/02/23 [Rx] RX: Pantoprazole [Protonix] 40 mg PO AC-BID #50 tab 02/02/23 [Rx] Follow up Appointment(s)/Referral(s): Liam Stevenson MD [Medical Doctor] - 1 Week Eleazar Tolentino MD [Primary Care Provider] - 1-2 days Patient Instructions/Handouts: Acute Abdominal Pain (DC), Ileus (DC) Activity/Diet/Wound Care/Special Instructions: heart healthy diet activity is restricted till you see your doctor Discharge Disposition: HOME SELF-CARE
== END 2023-02-02 14:14 | disposition home or self-care (01) ==
LOC: EC 08:59 → 4SSUR 13:04 → OBSVTOIN 13:22 → INTOOBSV 13:22 → 4SSUR 14:47 → UNDODISIN 02-02 14:14
PROVIDERS: ADMIT Internal Medicine; ATTEND Internal Medicine
DX: M94.0 Chondrocostal junction syndrome [Tietze] (principal); R10.9 Unspecified abdominal pain; K21.9 Gastro-esophageal reflux disease without esophagitis; E11.9 Type 2 diabetes mellitus without complications; E78.5 Hyperlipidemia, unspecified; I10 Essential (primary) hypertension; E27.8 Other specified disorders of adrenal gland; J98.11 Atelectasis; E03.9 Hypothyroidism, unspecified; I70.0 Atherosclerosis of aorta; K57.30 Diverticulosis of large intestine without perforation or abscess without bleeding; I48.20 Chronic atrial fibrillation, unspecified; M47.816 Spondylosis without myelopathy or radiculopathy, lumbar region; Z79.899 Other long term (current) drug therapy; Z90.49 Acquired absence of other specified parts of digestive tract; Z87.891 Personal history of nicotine dependence; Z80.9 Family history of malignant neoplasm, unspecified
CPT/HCPCS: 96376 ×2; 96375 ×2; 96361; 96374; 99285; 36415; 93005; 80053; 80048; 80076; 82150; 83605; 83690; 84484; 85025 ×2; 81003; 83993; 87045; 83630; 87046; 71100; 74177; G0378 ×4; J2270; J1885 ×2; Q9967

== ENCOUNTER → 2023-06-16 | Outpatient (CLI) | payer MEDICARE ==
--- NOTE | 2023-06-16 17:11 | P.PN ---
Subjective DATE: 06/16/2023 FOLLOW UP VISIT. Patient with obstructive sleep apnea hypopnea syndrome return to sleep center for follow-up visit. Information from previous visit have been reviewed. Patient getting PAP supplies in time. 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 The patient does not have significant problems with the mask, PAP unit and humidification. [place] sleepiness scale is 5. I checked information from PAP unit for last 6 months. PAP unit pressure 5-8 average 7.4 cm H2O. Usage is 50% of nights. Leak is 2 l/m, which is in acceptable range. Apnea Hypopnea Index is 4.2 which include central apnea hypopnea index 2.9, which is normal. MEDICATIONS:1. Januvia 2. Lotrel 3. Atorvastatin 4. Timolol eyedrops During physical exam: GENERAL: A pleasant patient without any distress. VITAL SIGNS: BP 124/67, HR 69, RR 18, weight 169.8, temperature 97.6, oxygen saturation at room air 96 % . HEENT: PERRLA, EOMI.low position of soft palate, [place] 4 . NECK: Supple. No JVD. LUNGS: Clear to percussion and to auscultation. Good air exchange. No wheezing or rhonchi. HEART: S1, S2 irregular. ABDOMEN: Soft and nontender.[] EXTREMITIES: No clubbing or cyanosis. BUILDING CLEANING SUPERVISOR: Awake, alert, and oriented x3. No focal deficit. Impressions: 1. Obstructive sleep apnea-hypopnea syndrome. Patient did not use CPAP equipment for last 2 months. During usage in previous months respiration was normal. 2. 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 3. atrial fibrillation. 4. History of stroke in 2011. 5. Diabetes mellitus. 6. Hypertension. 7. Hyperlipidemia. 8. History of increased eye pressure. 9. Status post cholecystectomy. 10. Mild obesity, lost 3 pounds since previous visit. Plan: 1. to restart using PAP equipment every night for the whole night. 2. To change air filter at least 1-2 times per month. 3. PAP unit should stay lower then position of the head. 4. Advised patient to remove all remaining water from humidifier canister daily and make it dry after each usage. Refill canister with fresh distilled water before each usage. 5. Sleep hygiene with regular time in bed for at least 8 hours. 6. Precautions related to driving. No driving if feel any sleepiness. 7. I will maintain prescription for PAP supplies including mask, tube, filters. 8. Follow up visit in 4 months or earlier if patient has any problems. 9. Watching weight. Thank you very much for allowing me to participate in the management of your patient. Juan Buck MD, PhD, FAASM. Diplomat of [place], Sleep Medicine Board by [employer] [facility] [place]
== END ==
LOC: 3 N SLEEP 16:31
PROVIDERS: ATTEND Internal Medicine
DX: G47.33 Obstructive sleep apnea (adult) (pediatric) (principal); E11.9 Type 2 diabetes mellitus without complications; I48.91 Unspecified atrial fibrillation; E66.9 Obesity, unspecified; E78.5 Hyperlipidemia, unspecified; I10 Essential (primary) hypertension; H40.059 Ocular hypertension, unspecified eye; C76.1 Malignant neoplasm of thorax; Z86.73 Personal history of transient ischemic attack (TIA), and cerebral infarction without residual deficits; Z90.49 Acquired absence of other specified parts of digestive tract; Z92.3 Personal history of irradiation; Z79.899 Other long term (current) drug therapy; Z79.01 Long term (current) use of anticoagulants; Z87.891 Personal history of nicotine dependence
CPT/HCPCS: 99212